=== PATIENT | female | born 1970 | race Caucasian/White ===

== ENCOUNTER 2022-09-29 12:30 | Day surgery (SDC) | payer OTHER, SELFPAY ==
--- NOTE | 2022-09-29 12:12 | MM_ITS ---
Patient: CLIVE CARDOZA Exam Date: 09/29/2022 : 1970 Gender:F Ordering : DR NIMISHA RETANA M.D. Admission #: [id number] Family : Order #: [id number] CLICK HERE TO VIEW EXAM RADIOLOGY REPORT PROCEDURE: MM POST BIOPSY BI COMPARISON: MG MAMM DARRELL DIAG FU, 09/16/2022. MG MAMM SCREEN 3D DARRELL CAD, 09/13/2022. MG MAMM SCREEN 3D DARRELL CAD, 07/20/2021. MG MAMM SCREEN DARRELL W CAD, 04/15/2020. INDICATIONS: Bilateral breast mass, nodule BREAST COMPOSITION: FINDINGS: BIOPSY MARKER: A metallic marker has been placed in the targeted location within the upper-outer quadrant of the right breast, and lower-inner quadrant of left breast. BREAST FINDINGS: Expected post biopsy findings. RECOMMENDATIONS: Dictated by: Kvng Baez M.D. on 09/30/2022 at 14:54 Approved by: Kvng Baez M.D. on 09/30/2022 at 14:57
--- NOTE | 2022-09-29 12:14 | US_ITS ---
[address] [address] Patient Name: CLIVE CARDOZA MRN: [id number] date: 1970 Sex: F Assigned Patient Location: US Current Patient Location: US Accession/Order Number: [id number] Exam Date: 09/29/2022 12:18 Report Date: 09/30/2022 14:33 At the request of: NIMISHA RETANA Procedure: US breast vac bx w/ clip LT EXAM: US breast vac bx w/ clip LT HISTORY: Right breast mass/nodule COMPARISON: Ultrasound breast Limited bilateral 09/16/2022, bilateral mammography 09/16/2022 TECHNIQUE: After obtaining informed consent, ultrasound-guided biopsy was performed in the usual sterile manner. The location of the biopsy was then marked as indicated below. FINDINGS: Specimen #, Location: 3 core samples; left breast slightly hypoechoic mass 7:00 Biopsy Needle: 13 gauge vacuum core biopsy needle. Marker(s): A single metallic marker was placed in the appropriate targeted location. Medication: Buffered 1% Lidocaine with epinephrine administered locally. Complications: None. Pathology: Pending. IMPRESSION: 1. Uneventful ultrasound-guided breast biopsy. 2. Pathology results are pending. An addendum to this report will be provided after pathology results are available. Electronically authenticated by: HUGH HANSEN Date: 09/30/2022 14:33
--- NOTE | 2022-09-29 12:19 | US_ITS ---
[address] [address] Patient Name: CLIVE CARDOZA MRN: [id number] date: 1970 Sex: F Assigned Patient Location: US Current Patient Location: US Accession/Order Number: [id number] Exam Date: 09/29/2022 12:18 Report Date: 09/30/2022 14:35 At the request of: NIMISHA RETANA Procedure: US breast vac bx w/ clip RT EXAM: US breast vac bx w/ clip RT HISTORY: Right breast mass/nodule COMPARISON: Ultrasound breast Limited bilateral 09/16/2022, mammography and bilateral diagnostic 09/16/2022 TECHNIQUE: After obtaining informed consent, ultrasound-guided biopsy was performed in the usual sterile manner. The location of the biopsy was then marked as indicated below. FINDINGS: Specimen #, Location: 3 core samples; right breast 10:00 heterogeneous mass Biopsy Needle: 13 gauge vacuum core biopsy needle. Marker(s): A single metallic marker was placed in the appropriate targeted location. Medication: Buffered 1% Lidocaine with epinephrine administered locally. Complications: None. Pathology: Pending. IMPRESSION: 1. Uneventful ultrasound-guided breast biopsy. 2. Pathology results are pending. An addendum to this report will be provided after pathology results are available. Electronically authenticated by: HUGH HANSEN Date: 09/30/2022 14:35
[2022-09-29 12:30] VITALS: BP 128/82; PULSE 79; O2SAT 95
[2022-09-29 15:39] VITALS: BMI 30.7
--- NOTE | 2022-09-29 15:50 | PC.NURSE ---
1318 Timeout completed with jass, Dr Baez, and Hu present in room.
[2022-09-30] MEDS: LIDOCAINE HCL 1%-EPINEPHRINE 1:100,000 20 ML MDV INJ (11:34)
[2022-09-30] MEDS: LIDOCAINE HCL 20 ML, SODIUM BICARBONATE 2 MEQ INJ (11:35)
== END 2022-09-29 15:00 | disposition home or self-care (01) ==
LOC: US 09-30 12:25
PROVIDERS: Radiology Diagnostic Radiology; PCP Family Medicine; Visit Provider Family Medicine
DX: D05.01 Lobular carcinoma in situ of right breast (principal); D24.2 Benign neoplasm of left breast
CPT/HCPCS: 19083; 77066; 88305; 88342; 88360

== ENCOUNTER 2023-04-25 08:52 | Outpatient (OUT) | payer OTHER, SELFPAY ==
--- NOTE | 2023-04-25 09:53 | CA_ITS ---
Patient Name Site Name CLIVE CARDOZA [facility] Account No Medical Record Number Age Sex Date Time [id number] [employer]:[id number] F 04/25/2023 09:10 At the Request Of PIEDAD REYES ECHOCARDIOGRAM REPORT PROCEDURE: CA ECHO DOPPLER COMPLETE INDICATIONS: HUNT, Chronic fatigue, Dizziness, S/P Chemo/radiation COMPARISON: None. DESCRIPTION: COMPLETE ECHOCARDIOGRAM Real-time transthoracic echocardiography with 2D, M-mode, spectral and color flow Doppler performed. QUALITY: Technical quality was good. LEFT VENTRICLE: Normal chamber size. Normal left ventricular wall thickness. Global left ventricular systolic function is normal. LV EF: Visual estimation of left ventricular ejection fraction is 55% DIASTOLIC: Normal diastolic function. ATRIAL SEPTUM: LEFT ATRIUM: Normal chamber size. RIGHT ATRIUM: Normal chamber size. RIGHT VENTRICLE: Normal chamber size. Normal right ventricular systolic function. TRICUSPID VALVE: Normal mobility and thickness. No stenosis with trivial regurgitation. No evidence of pulmonary hypertension. RVSP 24 mmHg MITRAL VALVE: Normal mobility and thickness. No evidence of mitral valve stenosis. There is no mitral annular calcification. No mitral regurgitation. AORTIC VALVE: Normal trileaflet appearance. No visible sclerosis. Normal leaflet mobility. No evidence of aortic valve stenosis. No aortic regurgitation. AORTIC ROOT: Normal diameter and appearance. PULMONIC VALVE: Normal thickness and mobility. No stenosis. Mild regurgitation. PERICARDIUM: No evidence of pericardial effusion. IVC: Collapses with inspirations. Normal size. PLEURA: CONCLUSION: 1. Normal ventricular function. LVEF is 55%. 2. No significant valvular dysfunction. 3. Normal right-sided pressures. 4. No pericardial effusion. Adult Echocardiography Procedure Report Left Ventricle LVEDD (3.7 - 5.6 cm): 5.18 cm LVESD (2.2 - 4.0 cm): 3.67 cm LVIVS thickness (0.6 - 1.2 cm): 0.77 cm LVPW thickness (0.5 - 1.0 cm): 0.85 cm e': 0.10 m/s E - e': 6.11 LVOT Max Gradient: 2.29 mm[Hg] LVOT Area (cm2): 0.76 m/s Peak Velocity (LVOT): 0.76 m/s Mean Velocity (LVOT): 0.51 m/s LVOT Diameter 2.51 cm Left Ventricular Ejection Fraction: 55% Left Atrium LA Volume Index (2D A2C): 32.44 ml/m2 Left Atrium Systolic Dimension: 3.06 cm Mitral Valve MV E to A Ratio: 1.13 Mitral Valve A-Wave Peak Velocity: 0.53 m/s Mitral Valve E-Wave Peak Velocity: 0.60 m/s Right Ventricle RV Internal Diastolic Dimension: 2.56 cm Aorta AO Root Diam: 3.35 cm Aortic Valve AoV Area (Peak Jeremy): 3.25 cm2, 3.25 cm2 AoV Area (VTI): 3.24 cm2, 3.24 cm2 Peak Velocity(Antegrade Flow): 1.15 m/s Peak Gradient(Antegrade Flow): 5.33 mm[Hg] Mean Velocity(Antegrade Flow): 0.78 m/s Mean Gradient(Antegrade Flow): 2.71 mm[Hg] Velocity Time Integral: 22.02 cm Tricuspid Valve Peak Velocity (Regurgitant Flow): 2.28 m/s, 2.19 m/s Pulmonic Valve Mean Gradient: 2.76 mm[Hg], 2.73 mm[Hg], 2.25 mm[Hg] Mean Velocity: 0.79 m/s, 0.78 m/s, 0.70 m/s Peak Velocity: 1.02 m/s Peak Gradient: 4.49 mm[Hg], 4.25 mm[Hg], 3.75 mm[Hg] Right Atrium Right Atrium Systolic Pressure: 31.38 ml, 31.38 ml Dictated by: Doug Hernandez M.D. on 04/26/2023 at 19:11 Approved by: Doug Hernandez M.D. on 04/26/2023 at 19:14
== END 2023-04-25 08:53 | disposition home or self-care (01) ==
LOC: CARD 08:53
PROVIDERS: PCP Family Medicine; Visit Provider Physician Assistant
DX: R06.09 Other forms of dyspnea (principal); R53.82 Chronic fatigue, unspecified; Z92.3 Personal history of irradiation; D84.9 Immunodeficiency, unspecified; R42 Dizziness and giddiness
CPT/HCPCS: 93306

== ENCOUNTER 2023-06-23 14:14 | Outpatient (OUT) | payer OTHER, SELFPAY ==
--- NOTE | 2023-06-23 14:17 | XR_ITS ---
[facility] [place] [id number] Patient Name: CLIVE CARDOZA MRN: [id number] date: 1970 Sex: F Assigned Patient Location: [facility] Current Patient Location: RAD Accession/Order Number: [id number] Exam Date: 06/23/2023 14:30 Report Date: 06/23/2023 14:44 At the request of: NIMISHA RETANA Procedure: XR DEXA axial skeleton EXAMINATION: XR DEXA axial skeleton HISTORY: Estrogen Deficiency E28.39 COMPARISON: No relevant comparison available. TECHNIQUE: Dual-energy X-ray absorptiometry (DXA) was performed. FINDINGS: SPINE ANALYSIS: Average bone mineral density is 1.477 g/cm2. T-score (standard deviation relative to young adult mean): 2.5 . HIP ANALYSIS: Lowest bone mineral density is within the left femoral neck, 1.013 g/cm2. T-score (standard deviation relative to young adult mean): -0.2 . XR/XR DEXA axial skeleton IMPRESSION: World [employer] Organization Classification: Normal - Low Fracture Risk Electronically authenticated by: HUGH HANSEN Date: 06/23/2023 14:44
--- OUTSIDE RECORDS SUMMARY | 2023-06-23 14:29 | XMS_ITS | CCD ---
Author Name Unknown Address [address] [place] [address] Organization [facility] Care Team Providers Care Customer Support Associate Name Role Phone MAZIN, DR BANSAL Admitting Unavailable MAZIN, DR BANSAL Primary Care Unavailable MAZIN, DR BANSAL Consulting Unavailable MAZIN, DR BANSAL Attending Unavailable POLSON, DR RADHA Gant Consulting Unavailable Unavailable Primary Care Provider Unavailabl e Mazin, Rugen [facility] Primary Care Provider Sasha Menjivar Unavailable GET RYAN Referring Unavailable MAZIN, RUGEN [facility] Primary Care Unavailable GET RYAN Referring Unavailable MAZIN, [facility]UGEN [facility] Primary Care Unavailable MAZIN, RUGEN MABALAY Primary Care Unavailable GET RYAN Referring Unavailable Mazin Nimisha [facility] Primary Care Provider [phone] Angie Turpin RN Unavailable Tere Morales Unavailable Unavailable Tere Anderson Unavailable MAZIN, RUGEN MABALAY Primary Care Unavailable GET RYAN Referring Unavailable GET RYAN Attending Unavailable MAZIN, RUGEN [facility] Primary Care Unavailable GET RYAN Referring Unavailable MAZIN, RUGEN MABALAY Primary Care Unavailable GET RYAN Attending Unavailable MAZIN, RUGEN MABALAY Primary Care Unavailable JACQUELINE CORTEZ Referring Unavailable MESSI MANLEY Admitting Unavailable MESSI MANLEY Attending Unavailable MAZIN, RUGEN MABALAY Primary Care Unavailable TREVIN CALDERÓN Attending Unavailable CALDERÓN, TREVIN JUDY Referring Unavailable MAZIN, RUGEN MABALAY Primary Care Unavailable KAITLYNN, TREVIN JUDY Attending Unavailable KAITLYNN, TREVIN JUDY Referring Unavailable MAZIN, RUGEN MABALAY Primary Care Unavailable KAITLYNN, TREVIN JUDY Referring Unavailable MAZIN, RUGEN MABALAY Primary Care Unavailable KAITLYNN, TREVIN JUDY Referring Unavailable MAZIN, RUGEN MABALAY Primary Care Unavailable KAITLYNN, TREVIN JUDY Referring Unavailable MAZIN, RUGEN MABALAY Primary Care Unavailable KAITLYNN, TREVIN JUDY Referring Unavailable MESSI MANLEY Attending Unavailable MAZIN, RUGEN MABALAY Primary Care Unavailable MESSI MANLEY Referring Unavailable MAZIN, RUGEN MABALAY Primary Care Unavailable MESSI MANLEY Referring Unavailable [facility]ZIN, RUGEN [facility] Primary Care Unavailable ROBERT RENO Attending Unavailable MESSI MANLEY Referring Unavailable MAZIN, RUGEN MABALAY Primary Care Unavailable MESSI MANLEY Attending Unavailable MAZIN, RUGEN MABALAY Primary Care Unavailable MESSI MANLEY Referring Unavailable MAZIN, RUGEN MABALAY Primary Care Unavailable KAITLYNN, TREVIN JUDY Attending Unavailable KAITLYNN, TREVIN JUDY Referring Unavailable MAZIN, RUGEN MABALAY Primary Care Unavailable KAITLYNN, TREVIN JUDY Referring Unavailable MAZIN, RUGEN MABALAY Primary Care Unavailable KAITLYNN, TREVIN JUDY Referring Unavailable MAZIN, RUGEN MABALAY Primary Care Unavailable MESSI MANLEY Referring Unavailable MAZIN, RUGEN MABALAY Primary Care Unavailable KAITLYNN, TREVIN JUDY Attending Unavailable MAZIN, RUGEN MABALAY Primary Care Unavailable MAZIN, RUGEN MABALAY Primary Care Unavailable MAZIN, RUGEN MABALAY Primary Care Unavailable MESSI MANLEY Attending Unavailable MAZIN, RUGEN MABALAY Primary Care Unavailable GET RYAN Referring Unavailable MAZIN, RUGEN MABALAY Primary Care Unavailable GET RYAN Referring Unavailable LAINA MULLER Attending Unavailable MAZIN, RUGEN MABALAY Primary Care Unavailable KAITLYNN, TREVIN JUDY Referring Unavailable MESSI MANLEY Referring Unavailable MAZIN, RUGEN MABALAY Primary Care Unavailable GET RYAN Referring Unavailable MAZIN, RUGEN MABALAY Primary Care Unavailable GET RYAN Referring Unavailable GET RYAN Referring Unavailable MAZIN, RUGEN MABALAY Primary Care Unavailable LAINA MULLER Referring Unavailable MAZIN, RUGEN MABALAY Primary Care Unavailable MAZIN, RUGEN MABALAY Primary Care Unavailable MAZIN, [facility] Primary Care Unavailable MESSI MANLEY Attending Unavailable MAZIN, [facility] Primary Care Unavailable MESSI MANLEY Referring Unavailable KAITLYNN, TREVIN JUDY Attending Unavailable MAZIN, [facility] Primary Care Unavailable GET RYAN Attending Unavailable GET RYAN Referring Unavailable MAZIN, [facility] Primary Care Unavailable MESSI MANLEY Attending Unavailable MAZIN, [facility] Primary Care Unavailable GET RYAN Referring Unavailable MAZIN, [facility] Primary Care Unavailable MAZIN, [facility] Primary Care Unavailable CALDERÓN, TREVIN JUDY Referring Unavailable MAZIN, [facility] Primary Care Unavailable EDWIN WATTS Attending Unavailable CALDERÓN, TREVIN JUDY Referring Unavailable MAZIN, [facility] Primary Care Unavailable CALDERÓN, TREVIN JUDY Attending Unavailable MAZIN, [facility] Primary Care Unavailable CALDERÓN, TREVIN JUDY Referring Unavailable MAZIN, [facility] Primary Care Unavailable DEVYN FIELD Attending Unavailable MAZIN, [facility] Primary Care Unavailable GET RYAN Attending Unavailable MAZIN, [facility] Primary Care Unavailable CALDERÓN, TREVIN JUDY Referring Unavailable MAZIN, [facility] Primary Care Unavailable CALDERÓN, TREVIN JUDY Referring Unavailable MAZIN, [facility] Primary Care Unavailable CALDERÓN, TREVIN JUDY Referring Unavailable MAZIN, [facility] Primary Care Unavailable KAITLYNN TREVIN JUDY Referring Unavailable GET RYAN Attending Unavailable MESSI MANLEY Referring Unavailable MESSI MANLEY Attending Unavailable MESSI MANLEY Referring Unavailable MAZIN, [facility] Primary Care Unavailable EGT RYAN Referring Unavailable MAZIN, [facility] Primary Care Unavailable CALDERÓN, TREVIN JUDY Referring Unavailable MA[facility]IN, [facility] Primary Care Unavailable CALDERÓN, TREVIN JUDY Referring Unavailable MAIZN, [facility] Primary Care Unavailable MESSI MANLEY Referring Unavailable GET RYAN Referring Unavailable MAZIN, [facility] Primary Care Unavailable Mazin Nimisha COCHRAN Primary Care Provider Laurie Lopez Unavailable KATALINA EAST Attending Unavailable LAURIE REYES Attending Unavailable LAURIE REYES Attending Unavailable Medications Current Medications Medication Drug Class(es) Dates Sig (Normalized) Sig (Original) abemaciclib 150 mg oral tablet (17 sources) Start: 03-20-2023 take 1 tablet by mouth twice daily abemaciclib (Verzenio) 150 MG chemo tablet Take 150 mg by mouth twice a day. 0 03/20/2023 Active Start: 03-20-2023 take 1 tablet by marilyn th twice daily abemaciclib (VERZENIO) 150 mg tablet Take 1 tablet (150 mg) by mouth two times a day. 60 tablet 03/20/2023 Active Start: 03-20-2023 take 1 tablet by marilyn th twice daily abemaciclib (VERZENIO) 150 mg tablet Take 1 tablet (150 mg) by mouth two times a day. 60 tablet 03/20/2023 Active Start: 03-20-2023 take 1 tablet by marilyn th twice daily abemaciclib (VERZENIO) 150 mg tablet Take 1 tablet (150 mg) by mouth two times a day. 60 tablet 03/20/2023 Active Start: 03-20-2023 take 1 tablet by marilyn th twice daily abemaciclib (VERZENIO) 150 mg tablet Take 1 tablet (150 mg) by mouth two times a day. 60 tablet 03/20/2023 Active Start: 03-20-2023 End: 02-15-2023 take 1 tablet by mouth twice daily abemaciclib (VERZENIO) 150 mg tablet Take 1 tablet (150 mg) by mouth two times a day. 60 tablet 03/20/2023 02/15/2023 Discontinued Start: 03-20-2023 take 1 tablet by marilyn th twice daily abemaciclib (VERZENIO) 150 mg tablet Take 1 tablet (150 mg) by mouth two times a day. 60 tablet 03/20/2023 Active Start: 03-20-2023 take 1 tablet by marilyn th twice daily abemaciclib (VERZENIO) 150 mg tablet Take 1 tablet (150 mg) by mouth two times a day. 60 tablet 03/20/2023 Active Start: 03-20-2023 take 1 tablet by marilyn th twice daily abemaciclib (VERZENIO) 150 mg tablet Take 1 tablet (150 mg) by mouth two times a day. 60 tablet 11 03/20/2023 Active Start: 03-20-2023 take 1 tablet by marilyn th twice daily abemaciclib (VERZENIO) 150 mg tablet Take 1 tablet (150 mg) by mouth two times a day. 60 tablet 11 03/20/2023 Active Start: 03-20-2023 take 1 tablet by marilyn th twice daily abemaciclib (VERZENIO) 150 mg tablet Take 1 tablet (150 mg) by mouth two times a day. 60 tablet 03/20/2023 Active Comment on above: Take 1 tablet (150 m g) by mouth two times a day. ALPRAZolam 0.5 mg oral tablet (20 sources) Benzodiazepine Start: take 1 tablet by mouth twice daily as needed for anxiety ALPRAZolam (Xanax) 0.5 MG tablet Indications: Anxiety about health Take 1 tablet (0.5 mg) by mouth 2 (two) times a day as needed for anxiety. 30 tablet 0 11/15/2022 Active take 1 tablet by mouth every twe lve hours Comment on above: Take 0.5 mg by mouth twice daily. amoxicillin 500 mg oral capsule (2 sources) Penicillin-class Antibacterial Start: 04-04-20 End: 04-08-20 take 1 capsule by mouth twice daily amoxicillin (AMOXIL) 500 mg capsule Take 1 capsule by mouth two times a day for 4 days. 0 04/04/2023 04/08/2023 Active Comment on above: Take 1 capsule by mo [facility] two times a day for 4 days. anastrozole 1 mg oral tablet (20 sources) Aromatase Inhibitor Start: 10-26-19 anastrozole (Arimidex) 1 MG chemo tablet Comment on above: Take 1 tablet by marilyn th once daily. 12 hr buPROPion hydrochloride 150 mg extended release oral tablet (20 sources) Aminoketone Start: 11-09-19 take 1 tablet by mouth every twelve hours in the morning buPROPion SR (Wellbutrin SR) 150 MG 12 hr tablet Indications: Anxiety about health Take 1 tablet (150 mg) by mouth in the morning and 1 tablet (150 mg) before bedtime. 200 tablet 3 11/08/2022 Active Start: 03-24-2022 take 1 tablet by marilyn th once daily buPROPion SR (ZYBAN SR; WELLBUTRIN SR) 150 mg 12 hr tablet Take 150 mg by mouth once daily. 0 07/22/2021 Active take 1.5 tablets by mouth every twenty-four hours Comment on above: Take 150 mg by mouth once daily. cholecalciferol 0.125 mg oral capsule (1 source) Vitamin D Start: 10-20-19 take 1 capsule by mouth once in the morning cholecalciferol (Vitamin D-3) 125 MCG (5000 UT) capsule Indications: Vitamin D deficiency Take 1 capsule (125 mcg) by mouth in the morning. 90 capsule 3 10/19/2022 Active diphenhydrAMINE hydrochloride 25 mg oral tablet (1 source) Histamine-1 Receptor Antagonist diphenhydrAMINE (BENADryl) 25 MG tablet Take 2 tablets by mouth as needed at bedtime for itching, allergies or sleep. 0 Active enteric contrast (will be provided with radiology test) (1 source) Start: 12-03-19 End: 12-04-19 enteric contrast (will be provided with radiology test) Indications: Malignant 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 in female, estrogen receptor positive (HCC) For CT CHESTABD/PEL W IVCON Routine order Administer, As Directed One Time Only, via Oral, Rectal, both Oral and Rectal, Enteric Tube, Stoma or Indwelling Catheter, Enteric Contrast as designated per enteric contrast guidelines 1 Each 0 12/02/2022 12/03/2022 Active Comment on above: For CT CHESTABD/PEL W IVCON Routine order Administer, As Directed One Time Only, via Oral, Rectal, both Oral and Rectal, Enteric Tube, Stoma or Indwelling Catheter, Enteric Contrast as designated per enteric contrast guidelines fexofenadine hydrochloride 30 mg disintegrating oral tablet (20 sources) Histamine-1 Receptor Antagonist take 1 tablet by mouth in the morning fexofenadine ODT (Monica ODT) 30 MG disintegrating tablet Take 30 mg by mouth in the morning. 0 Active take 1 tablet by mouth once sheeba y fexofenadine HCl (MONICA 60 MG CAP) Take 1 tablet by mouth once daily. 0 Active Comment on above: Take 1 tablet by marilyn once daily. fluticasone propionate 0.05 mg/actuat metered dose nasal spray (2 sources) Corticosteroid take 1 spray(s) nasal route in the morning fluticasone (Flonase) 50 MCG/ACT nasal spray Administer 1 spray into each nostril in the morning. Shake gently. Before first use, prime pump. After use, clean tip and replace cap.. 0 Active iv contrast (will be provide d with radiology test) (12 sources) Start: 12-02-2022 End: 12-03-2022 iv contrast (will be provide d with radiology test) Indications: Malignant 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 in female, estrogen receptor positive (HCC) CT Chest ABD/PEL-Inject, intravenously, once for 1 dose.No IV access, insert saline lock prior to the beginning of sedation, infusion, injection of imaging exam. Discontinue saline lock post exam. If Pt. has a central line or IVAD, may access for administration according to line specific nursing protocol. Once exam is complete flush line and de-access according to line specific nursing protocol in the CT contrast administration guidelines link. 1 Each 0 12/02/2022 12/03/2022 Active Start: 10-19-2022 End: 10-20-2022 iv contrast (will be provide d with radiology test) Indications: Abnormal MRI, breast MRI LT Breast Bx Inject, intravenously, once for 1 dose. No IV access, insert saline lock prior to the beginning of sedation, infusion, injection of imaging exam. Discontinue saline lock post exam. If Pt has a central line or IVAD, may access for administration according to line specific nursing protocol. Once exam is complete flush line and de-access according to line specific nursing protocol in the MR contrast administration guidelines link 1 Each 0 10/19/2022 10/20/2022 Start: 10-19-2022 End: 10-20-2022 iv contrast (will be provide d with radiology test) Indications: Abnormal MRI, breast MRI LT Breast Bx Inject, intravenously, once for 1 dose. No IV access, insert saline lock prior to the beginning of sedation, infusion, injection of imaging exam. Discontinue saline lock post exam. If Pt has a central line or IVAD, may access for administration according to line specific nursing protocol. Once exam is complete flush line and de-access according to line specific nursing protocol in the MR contrast administration guidelines link 1 Each 0 10/19/2022 10/20/2022 Active Start: 10-18-2022 End: 10-19-2022 iv contrast (will be provide d with radiology test) MRI Breast DARRELL Inject, intravenously, once for 1 dose. No IV access, insert saline lock prior to the beginning of sedation, infusion, injection of imaging exam. Discontinue saline lock post exam. If Pt has a central line or IVAD, may access for administration according to line specific nursing protocol. Once exam is complete flush line and de-access according to line specific nursing protocol in the MR contrast administration guidelines link 1 Each 0 10/18/2022 10/19/2022 Start: 10-18-2022 End: 10-19-2022 iv contrast (will be provide d with radiology test) MRI Breast DARRELL Inject, intravenously, once for 1 dose. No IV access, insert saline lock prior to the beginning of sedation, infusion, injection of imaging exam. Discontinue saline lock post exam. If Pt has a central line or IVAD, may access for administration according to line specific nursing protocol. Once exam is complete flush line and de-access according to line specific nursing protocol in the MR contrast administration guidelines link 1 Each 0 10/18/2022 10/19/2022 Active Comment on above: MRI Breast DARRELL Injec t, intravenously, once for 1 dose. No IV access, insert saline lock prior to the beginning of sedation, infusion, injection of imaging exam. Discontinue saline lock post exam. If Pt has a central line or IVAD, may access for administration according to line specific nursing protocol. Once exam is complete flush line and de-access according to line specific nursing protocol in the MR contrast administration guidelines link MRI LT Breast Bx Inj ect, intravenously, once for 1 dose. No IV access, insert saline lock prior to the beginning of sedation, infusion, injection of imaging exam. Discontinue saline lock post exam. If Pt has a central line or IVAD, may access for administration according to line specific nursing protocol. Once exam is complete flush line and de-access according to line specific nursing protocol in the MR contrast administration guidelines link CT Chest ABD/PEL-Inj ect, intravenously, once for 1 dose.No IV access, insert saline lock prior to the beginning of sedation, infusion, injection of imaging exam. Discontinue saline lock post exam. If Pt. has a central line or IVAD, may access for administration according to line specific nursing protocol. Once exam is complete flush line and de-access according to line specific nursing protocol in the CT contrast administration guidelines link. Multiple Vitamins-Minerals (EYE VITAMINS PO) (1 source) take 1 tablet by mouth once daily Multiple Vitamins-Minerals (EYE VITAMINS PO) Take 1 tablet by mouth 1 (one) time each day. 0 Active omeprazole 20 mg delayed release oral tablet (6 sources) Proton Pump Inhibitor Start: 04-04-20 take 1 tablet by mouth before mealtime PriLOSEC OTC 20 MG EC tablet Indications: Chronic gastritis without bleeding, unspecified gastritis type TAKE 1 TABLET BY MOUTH IN THE MORNING BEFORE MEAL(S) 100 tablet 3 04/20/2023 Active Comment on above: Take 1 tablet by marilyn th two times a day. ondansetron 8 mg oral tablet (16 sources) Serotonin-3 Receptor Antagonist Start: 02-14-20 ondansetron (Zofran) 8 MG tablet Take 8 mg by mouth. 0 02/13/2023 Active Comment on above: Take 1 tablet by marilyn th once daily as needed for nausea/vomiting. silver sulfADIAZINE 10 mg/ml topical cream (2 sources) Sulfonamide Antibacterial Start: 02-21-20 End: 03-06-20 silver sulfADIAZINE (SILVADENE) 1 % cream Apply to affected area two times a day for 14 days. 50 g 1 02/20/2023 03/06/2023 Active Comment on above: Apply to affected ar ea two times a day for 14 days. Vitamin D (1 source) Completed/Discontinued Medications Medication Drug Class(es) Dates Sig (Normalized) Sig (Original) Amphetamine / Dextroamphetamine (1 source) Central Nervous System Stimulant Calcium (1 source) Phosphate Binder, Calcium Emergen-C Immune (1 source) Estradiol (1 source) Estrogen Magnesium (1 source) methylcellulose 500 mg oral tablet (5 sources) Start: 04-04-2023 take 1 tablet by mouth once daily Methylcellulose, Laxative, (CITRUCEL) 500 mg tab Take 1 tablet by mouth once daily. 0 04/04/2023 Active Comment on above: Take 1 tablet by marilyn th once daily. oxyCODONE hydrochloride 5 mg oral tablet (12 sources) Opioid Agonist Start: 2022 End: 12-19-2022 take 1 tablet by mouth every eight hours as needed oxyCODONE IR (ROXICODONE) 5 mg immediate release tablet Indications: Malignant neoplasm of overlapping sites of right breast in female, estrogen receptor positive (HCC) Take 1-2 tablets by mouth every 8 hours as needed for pain. 18 tablet 0 2022 12/19/2022 Discontinued (Course of therapy completed) Comment on above: Take 1-2 tablets by mouth every 8 hours as needed for pain. predniSONE (1 source) Zinc (1 source) Problems Active Problems Problem Classification Problem Date Documented Da te Episodic/Chronic Abdominal pain (1 source) Abdominal pain; Translations: [Abdominal pain] Episodic Acute and chronic tonsillitis (1 source) Enlarged tonsil; Translations: [Hypertrophy of tonsils] Onset: 10-08-2022 10-08-2022 Chronic Anxiety disorders (20 sources) Anxiety about body function or health; Translations: [Other specified anxiety disorders] Onset: 06-09-2015 11-23-2022 Chronic Attention-deficit, conduct, and disruptive behavior disorders (1 source) Attention deficit hyperactivity disorder, predominantly inattentive type; Translations: [Attention-deficit hyperactivity disorder, predominantly inattentive type] Onset: 01-05-2017 03-29-2023 Chronic Cancer of breast (20 sources) Malignant neoplasm of female breast; Translations: [Malignant neoplasm of unspecified site of right female breast] Onset: 10-10-2022 Chronic Diabetes or abnormal glucose tolerance complicating ; childbirth; or the puerperium (1 source) Diabetes mellitus during , childbirth and the puerperium; Translations: [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] Onset: 06-09-2015 03-29-2023 Chronic Gastritis and duodenitis (1 source) Atrophic gastritis; Translations: [Chronic atrophic gastritis without bleeding] Onset: 12-07-2017 03-29-2023 Chronic Immunity disorders (1 source) Immunosuppression; Translations: [Immunodeficiency, unspecified] Onset: 04-20-2023 04-20-2023 Chronic Malaise and fatigue (1 source) Fatigue; Translations: [Chronic fatigue, unspecified] Onset: 10-08-2022 10-08-2022 Chronic Mood disorders (1 source) Depressive disorder; Translations: [Depressive disorder] Onset: 10-08-2022 10-08-2022 Chronic Nutritional deficiencies (1 source) Vitamin D deficiency; Translations: [Vitamin D deficiency, unspecified] Onset: 10-08-2022 10-08-2022 Chronic Osteoarthritis (1 source) Osteoarthritis of right hip joint; Translations: [Unilateral primary osteoarthritis, right hip] Onset: 10-08-2022 10-08-2022 Chronic Other aftercare (3 sources) Prophylactic aromatase inhibitors given; Translations: [senior care (current) use of aromatase inhibitors] 04-06-2023 Episodic Other aftercare (2 sources) H/O: malignant neoplasm; Translations: [Encounter for follow-up examination after completed treatment for malignant neoplasm] 04-06-2023 Episodic Other aftercare (1 source) senior care (current) use of aromatase inhibitors; Translations: [Aromatase inhibitor use] Onset: 04-17-2023 Episodic Other aftercare (1 source) Encounter for follow-up examination after completed treatment for malignant neoplasm; Translations: [Encounter for routine cancer follow-up] Onset: 04-17-2023 Episodic Other connective tissue disease (1 source) Muscle pain; Translations: [Myalgia, unspecified site] Onset: 06-02-2023 06-02-2023 Episodic Other gastrointestinal disorders (1 source) Constipation; Translations: [Constipation] Episodic Other nervous system disorders (1 source) Paresthesia; Translations: [Paresthesia of skin] Episodic Other nervous system disorders (1 source) Paresthesia of skin Episodic Other nutritional; endocrine; and metabolic disorders (1 source) Body mass index 30+ - obesity; Translations: [Obesity, unspecified] Onset: 10-08-2022 10-08-2022 Chronic Other upper respiratory disease (1 source) Allergic rhinitis; Translations: [Other allergic rhinitis] Onset: 10-08-2022 10-08-2022 Chronic Poisoning by other medications and drugs (1 source) Allergic reaction to drug; Translations: [Allergic reaction to drug] Episodic Residual codes; unclassified (5 sources) Estrogen receptor positive status [ER+]; Translations: [Malignant 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 in female, estrogen receptor positive (HCC)] Onset: 10-19-2022 Episodic Residual codes; unclassified (1 source) Acquired absence of bilateral breasts and nipples; Translations: [H/O bilateral mastectomy] Onset: 04-17-2023 Episodic Unclassified (1 source) Radiotherapy On-treatment Visit Onset: 02-08-2023 Past or Other Problems Problem Classification Problem Date Documented Date Episodic/Chronic Administrative/social admission (1 source) Other specified counseling; Translations: [Encounter to discuss breast reconstruction] Onset: 10-31-2022 Episodic Anal and rectal conditions (20 sources) Rectal pain; Translations: [Rectal pain] Onset: 11-23-2022 11-23-2022 Episodic Gastritis and duodenitis (1 source) Gastritis; Translations: [Gastritis, unspecified, without bleeding] Onset: 10-08-2022 10-08-2022 Episodic Miscellaneous mental health disorders (3 sources) Anxiety about body function or health; Translations: [Other symptoms and signs involving emotional state] Onset: 05-20-2020 11-23-2022 Episodic Nonmalignant breast conditions (2 sources) Other specified disorders of breast; Translations: [Other specified disorders of breast] Onset: 11-23-2022 Episodic Other infections; including parasitic (20 sources) Personal history of other infectious and parasitic diseases; Translations: [Personal history of COVID-19] Onset: 10-08-2022 11-23-2022 Episodic Other lower respiratory disease (1 source) Dyspnea on exertion; Translations: [Other forms of dyspnea] Onset: 10-08-2022 10-08-2022 Episodic Other screening for suspected conditions (not mental disorders or infectious disease) (3 sources) Magnetic resonance imaging of breast abnormal; Translations: [Other abnormal and inconclusive findings on diagnostic imaging of breast] Onset: 10-21-2022 Episodic Residual codes; unclassified (19 sources) History of drug therapy; Translations: [Personal history of antineoplastic chemotherapy] Onset: 02-13-2023 02-13-2023 Episodic Screening and history of mental health and substance abuse codes (20 sources) H/O: depression; Translations: [Personal history of other mental and behavioral disorders] Onset: 11-08-2018 11-23-2022 Episodic Spondylosis; intervertebral disc disorders; other back problems (20 sources) Sciatica; Translations: [Sciatica, right side] Onset: 10-08-2022 11-23-2022 Episodic Results Test Name Value Interpretation Reference Range Facility CBC W Auto Differential pane l (Bld)on 06-09-2023 Erythrocyte distribution width (RBC) [Ratio] 14.6 % Normal 11.5-15.0 [facility] Comment on above: Order Comment: Speci men Type: BLOOD SPECIMENOrdering Facility: [facility] Address: [address] [place] [address] Performed By: #### 5 7021-8 ####[facility] LABIA [id number] [place] [address] [place] Hematocrit (Bld) [Volume fraction] 41.2 % Normal 36.0-46.0 [facility] Comment on above: Order Comment: Speci men Type: BLOOD SPECIMENOrdering Facility: [facility] Address: [address] [place] [address] Performed By: #### 5 7021-8 ####[facility] [id number] [place] [address] [place] Hemoglobin (Bld) [Mass/Vol] 13.4 g/dL Normal 11.5-15.5 [facility] Comment on above: Order Comment: Speci men Type: BLOOD SPECIMENOrdering Facility: [facility] Address: [address] [place] [address] Performed By: #### 5 7021-8 ####[facility] [id number] [place] [address] [place] Immature granulocytes (Bld) [#/Vol] 10*3/uL Normal <0.10 [facility] Comment on above: Order Comment: Speci men Type: BLOOD SPECIMENOrdering Facility: [facility] Address: [address] [place] [address] Performed By: #### 5 7021-8 ####[facility] [id number] [place] [address] [place] MCH (RBC) [Entitic mass] 30.0 pg Normal 26.0-34.0 [facility] Comment on above: Order Comment: Speci men Type: BLOOD SPECIMENOrdering Facility: [facility] Address: [address] [place] [address] Performed By: #### 5 7021-8 ####[facility] LABCLIA [id number] [place] [address] [place] MCHC (RBC) [Mass/Vol] 32.5 g/dL Normal 30.5-36.0 [facility] Comment on above: Order Comment: Speci men Type: BLOOD SPECIMENOrdering Facility: [facility] Address: [address] [place] [address] Performed By: #### 5 7021-8 ####[facility] LABCLIA [id number] [place] [address] [place] MCV (RBC) [Entitic vol] 92.2 fL Normal 80.0-100.0 [facility] Comment on above: Order Comment: Speci men Type: BLOOD SPECIMENOrdering Facility: [facility] Address: [address] [place] [address] Performed By: #### 5 7021-8 ####[facility] [id number] [place] [address] [place] Neutrophils (Bld) [#/Vol] 2.12 10*3/uL Normal 1.45-7.50 [facility] Comment on above: Order Comment: Speci men Type: BLOOD SPECIMENOrdering Facility: [facility] Address: [address] [place] [address] Performed By: #### 5 7021-8 ####[facility] [id number] [place] [address] [place] Nucleated RBC (Bld) [#/Vol] 10*3/uL Normal <0.01 [facility] Comment on above: Order Comment: Speci men Type: BLOOD SPECIMENOrdering Facility: [facility] Address: [address] [place] [address] Performed By: #### 5 7021-8 ####[facility] [id number] [place] [address] [place] Platelet mean volume (Bld) [Entitic vol] 8.8 fL Low 9.0-12.7 [facility] Comment on above: Order Comment: Speci men Type: BLOOD SPECIMENOrdering Facility: [facility] Address: [address] [place] [address] Performed By: #### 5 7021-8 ####[facility] [id number] [place] [address] [place] Platelets (Bld) [#/Vol] 273 10*3/uL Normal 150-400 [facility] Comment on above: Order Comment: Speci men Type: BLOOD SPECIMENOrdering Facility: [facility] Address: [address] [place] [address] Performed By: #### 5 7021-8 ####[facility] [id number] [place] [address] [place] RBC (Bld) [#/Vol] 4.47 10*6/uL Normal 3.90-5.20 [facility] Comment on above: Order Comment: Speci men Type: BLOOD SPECIMENOrdering Facility: [facility] Address: [address] [place] [address] Performed By: #### 5 7021-8 ####[facility] [id number] [place] [address] [place] WBC (Bld) [#/Vol] 2.92 10*3/uL Low 3.70-11.00 [facility] Comment on above: Order Comment: Speci men Type: BLOOD SPECIMENOrdering Facility: [facility] Address: [address] [place] [address] Performed By: #### 5 7021-8 ####[facility] LABCLIA [id number] [place] [address] [place] Immature granulocytes (Bld) [#/Vol] <0.10 k/uL [facility] Neutrophils (Bld) [#/Vol] 2.12 10*3/uL 1.45 - 7.50 k/uL [facility] Nucleated RBC (Bld) [#/Vol] <0.01 k/uL [facility] Platelet mean volume (Bld) [Entitic vol] 8.8 fL Low 9.0 - 12.7 fL [facility] Platelets (Bld) [#/Vol] 273 10*3/uL 150 - 400 k/uL [facility] WBC (Bld) [#/Vol] 2.92 10*3/uL Low 3.70 - 11. 00 k/uL [facility] CBC W AUTO DIFF BLDon [facility] NEUTROPHILS # BLD AUTO 2.12 [facility] NRBC # BLD AUTO <0.01 [facility] PLATELET # BLD AUTO 273 [facility] PMV BLD AUTO 8.8 fL Low 9.0 - 12.7 fL [facility] WBC # BLD AUTO 2.92 Low [facility] IMM GRANULOCYTES # BLD AUTO <0.03 [facility] Interpretation and review of laboratory results Abnormal [facility] Specimen Type: BLOOD SPECIMEN [facility] Address: [address] [place] [address] Original Ordering Provider: [facility] Comprehensive metabolic 2000 panelon 06-09-2023 Albumin [Mass/Vol] 4.4 g/dL 3.9 - 4.9 g/dL [facility] ALP [Catalytic activity/Vol] 67 U/L 34 - 123 U/L [facility] ALT [Catalytic activity/Vol] 14 U/L 7 - 38 U/L [facility] Anion gap [Moles/Vol] 11 mmol/L 9 - 18 mmol/L [facility] AST [Catalytic activity/Vol] 18 U/L 13 - 35 U/L [facility] Bilirubin [Mass/Vol] 0.3 mg/dL 0.2 - 1.3 mg/dL [facility] Calcium [Mass/Vol] 9.9 mg/dL 8.5 - 10. 2 mg/dL [facility] Chloride [Moles/Vol] 105 mmol/L 97 - 105 mmol/L [facility] CO2 [Moles/Vol] 27 mmol/L 22 - 30 mmol/L [facility] Creatinine [Mass/Vol] 0.82 mg/dL 0.58 - 0.96 mg/dL [facility] Estimated Glomerular Filtration Rate 85 mL/min/1.73m >=60 mL/min/1.73m [facility] Glucose [Mass/Vol] 91 mg/dL 74 - 99 mg/dL [facility] Potassium [Moles/Vol] 4.0 mmol/L 3.7 - 5.1 mmol/L [facility] Protein [Mass/Vol] 7.3 g/dL 6.3 - 8.0 g/dL [facility] Sodium [Moles/Vol] 143 mmol/L 136 - 144 mmol/L [facility] Urea nitrogen [Mass/Vol] 12 mg/dL 7 - 21 mg/dL [facility] Albumin [Mass/Vol] 4.4 g/dL Normal 3.9-4.9 [facility] Comment on above: Order Comment: Speci men Type: BLOOD SPECIMENOrdering Facility: [facility] Address: [address] [place] [address] Performed By: #### 2 4323-8 ####[facility] [id number] [place] [address] [place] ALP [Catalytic activity/Vol] 67 U/L Normal 34-123 [facility] Comment on above: Order Comment: Speci men Type: BLOOD SPECIMENOrdering Facility: [facility] Address: [address] [place] [address] Performed By: #### 2 4323-8 ####[facility] LABCLIA [id number] [place] [address] [place] ALT [Catalytic activity/Vol] 14 U/L Normal 7-38 [facility] Comment on above: Order Comment: Speci men Type: BLOOD SPECIMENOrdering Facility: [facility] Address: [address] [place] [address] Performed By: #### 2 4323-8 ####[facility] [id number] [place] [address] [place] Anion gap [Moles/Vol] 11 mmol/L Normal 9-18 [facility] Comment on above: Order Comment: Speci men Type: BLOOD SPECIMENOrdering Facility: [facility] Address: [address] [place] [address] Performed By: #### 2 4323-8 ####[facility] LABCLIA [id number] [place] [address] [place] AST [Catalytic activity/Vol] 18 U/L Normal 13-35 [facility] Comment on above: Order Comment: Speci men Type: BLOOD SPECIMENOrdering Facility: [facility] Address: [address] [place] [address] Performed By: #### 2 4323-8 ####[facility] [id number] [place] [address] [place] Bilirubin [Mass/Vol] 0.3 mg/dL Normal 0.2-1.3 [facility] Comment on above: Order Comment: Speci men Type: BLOOD SPECIMENOrdering Facility: [facility] Address: [address] [place] [address] Performed By: #### 2 4323-8 ####[facility] [id number] [place] [address] [place] Calcium [Mass/Vol] 9.9 mg/dL Normal 8.5-10.2 [facility] Comment on above: Order Comment: Speci men Type: BLOOD SPECIMENOrdering Facility: [facility] Address: [address] [place] [address] Performed By: #### 2 4323-8 ####[facility]CL[facility] [id number] [place] [address] [place] Chloride [Moles/Vol] 105 mmol/L Normal 97-105 [facility] Comment on above: Order Comment: Speci men Type: BLOOD SPECIMENOrdering Facility: [facility] Address: [address] [place] [address] Performed By: #### 2 4323-8 ####[facility]CL[facility] [id number] [place] [address] [place] CO2 [Moles/Vol] 27 mmol/L Normal 22-30 [facility] Comment on above: Order Comment: Speci men Type: BLOOD SPECIMENOrdering Facility: [facility] Address: [address] [place] [address] Performed By: #### 2 4323-8 ####[facility] [id number] [place] [address] [place] Creatinine [Mass/Vol] 0.82 mg/dL Normal 0.58-0.96 [facility] Comment on above: Order Comment: Speci men Type: BLOOD SPECIMENOrdering Facility: [facility] Address: [address] [place] [address] Performed By: #### 2 4323-8 ####[facility] [id number] [place] [address] [place] Creatinine and Glomerular filtration rate.predicted panel (S/P/Bld) 85 mL/min/1.73m??? Normal >=60 [facility] Comment on above: Order Comment: Speci men Type: BLOOD SPECIMENOrdering Facility: [facility] Address: [address] [place] [address] Result Comment: Ute mated Glomerular Filtration Rate (eGFR) is calculated using the 2020 CKD-EPI creatinine equation. This equation utilizes serum creatinine, sex, and age as parameters. The creatinine assay has traceable calibration to isotope dilution-mass spectrometry. Refer to KDIGO guidelines for clinical interpretation. In patients with unstable renal function, e.g. those with acute kidney injury, the eGFR may not accurately reflect actual GFR. Performed By: #### 2 4323-8 ####[facility] [id number] [place] [address] [place] Glucose [Mass/Vol] 91 mg/dL Normal 74-99 [facility] Comment on above: Order Comment: Speci men Type: BLOOD SPECIMENOrdering Facility: [facility] Address: [address] [place] [address] Result Comment: The [place] Diabetes Association (ADA) provides guidance for cutoff values for fasting glucose and random glucose. The ADA defines fasting as no caloric intake for at least 8 hours. Fasting plasma glucose results between 100 to 125 mg/dL indicate increased risk for diabetes (prediabetes).Fasting plasma glucose results greater than or equal to 126 mg/dL meet the criteria for diagnosis of diabetes. In the absence of unequivocal hyperglycemia, results should be confirmed by repeat testing. In a patient with classic symptoms of hyperglycemia or hyperglycemic crisis, random plasma glucose results greater than or equal to 200 mg/dL meet the criteria for diagnosis of diabetes.Reference: Standards of Medical Care in Diabetes 2016, [place] [employer]. Diabetes Care. 2016.39(Suppl 1). Performed By: #### 2 4323-8 ####[facility] LABCLIA [id number] [place] [address] [place] Potassium [Moles/Vol] 4.0 mmol/L Normal 3.7-5.1 [facility] Comment on above: Order Comment: Speci men Type: BLOOD SPECIMENOrdering Facility: [facility] Address: [address] [place] [address] Performed By: #### 2 4323-8 ####[facility]CL[facility] [id number] [place] [address] [place] Protein [Mass/Vol] 7.3 g/dL Normal 6.3-8.0 [facility] Comment on above: Order Comment: Speci men Type: BLOOD SPECIMENOrdering Facility: [facility] Address: [address] [place] [id number] Performed By: #### 2 4323-8 ####[facility] LABCLIA [id number] [place] [address] [place] Sodium [Moles/Vol] 143 mmol/L Normal 136-144 [facility] Comment on above: Order Comment: Speci men Type: BLOOD SPECIMENOrdering Facility: [facility] Address: [address] [place] [address] Performed By: #### 2 4323-8 ####[facility] LABCLIA [id number] [place] [id number] [place] Urea nitrogen [Mass/Vol] 12 mg/dL Normal 7-21 [facility] Comment on above: Order Comment: Speci men Type: BLOOD SPECIMENOrdering Facility: [facility] Address: [address] [place] [address] Performed By: #### 2 4323-8 ####[facility]CL[facility] [id number] [place] [id number] [place] Laboratory - Hematology and Cell countson 06-09-2023 Erythrocyte distribution width (RBC) [Ratio] 14.6 % 11.5 - 15.0 % [facility] Hematocrit (Bld) [Volume fraction] 41.2 % 36.0 - 46.0 % [facility] Hemoglobin (Bld) [Mass/Vol] 13.4 g/dL 11.5 - 15.5 g/dL [facility] MCH (RBC) [Entitic mass] 30.0 pg 26.0 - 34.0 pg [facility] MCHC (RBC) [Mass/Vol] 32.5 g/dL 30.5 - 36.0 g/dL [facility] MCV (RBC) [Entitic vol] 92.2 fL 80.0 - 100.0 fL [facility] RBC (Bld) [#/Vol] 4.47 10*6/uL 3.90 - 5.2 0 m/uL [facility] CBC W Auto Differential pane l (Bld)on 05-26-2023 Erythrocyte distribution width (RBC) [Ratio] 14.6 % Normal 11.5-15.0 [facility] Comment on above: Order Comment: Speci men Type: BLOOD SPECIMENOrdering Facility: [facility] Address: [address] [place] [address] Performed By: #### 5 7021-8 ####[facility] LABCLIA [id number] [place] [address] Hematocrit (Bld) [Volume fraction] 39.1 % Normal 36.0-46.0 [facility] Comment on above: Order Comment: Speci men Type: BLOOD SPECIMENOrdering Facility: [facility] Address: [address] [place] [address] Performed By: #### 5 7021-8 ####[facility] LABCLIA [id number] [place] [address] Hemoglobin (Bld) [Mass/Vol] 13.0 g/dL Normal 11.5-15.5 [facility] Comment on above: Order Comment: Speci men Type: BLOOD SPECIMENOrdering Facility: [facility] Address: [address] [place] [address] Performed By: #### 5 7021-8 ####[facility] LABCLIA [id number] [place] [address] Immature granulocytes (Bld) [#/Vol] 10*3/uL Normal <0.10 [facility] Comment on above: Order Comment: Speci men Type: BLOOD SPECIMENOrdering Facility: [facility] Address: [address] [place] [address] Performed By: #### 5 7021-8 ####[facility] LABCLIA [id number] [place] [address] MCH (RBC) [Entitic mass] 29.7 pg Normal 26.0-34.0 [facility] Comment on above: Order Comment: Speci men Type: BLOOD SPECIMENOrdering Facility: [facility] Address: [address] [place] [address] Performed By: #### 5 7021-8 ####[facility] LABCLIA [id number] [place] [address] MCHC (RBC) [Mass/Vol] 33.2 g/dL Normal 30.5-36.0 [facility] Comment on above: Order Comment: Speci men Type: BLOOD SPECIMENOrdering Facility: [facility] Address: [address] [place] [address] Performed By: #### 5 7021-8 ####[facility] LABIA [id number] [place] [address] MCV (RBC) [Entitic vol] 89.3 fL Normal 80.0-100.0 [facility] Comment on above: Order Comment: Speci men Type: BLOOD SPECIMENOrdering Facility: [facility] Address: [address] [place] [address] Performed By: #### 5 7021-8 ####[facility] LABIA [id number] [place] [address] Neutrophils (Bld) [#/Vol] 2.27 10*3/uL Normal 1.45-7.50 [facility] Comment on above: Order Comment: Speci men Type: BLOOD SPECIMENOrdering Facility: [facility] Address: [address] [place] [address] Performed By: #### 5 7021-8 ####[facility] LABIA [id number] [place] [address] Nucleated RBC (Bld) [#/Vol] 10*3/uL Normal <0.01 [facility] Comment on above: Order Comment: Speci men Type: BLOOD SPECIMENOrdering Facility: [facility] Address: [address] [place] [address] Performed By: #### 5 7021-8 ####[facility] LABIA [id number] [place] [address] Platelet mean volume (Bld) [Entitic vol] 8.3 fL Low 9.0-12.7 [facility] Comment on above: Order Comment: Speci men Type: BLOOD SPECIMENOrdering Facility: [facility] Address: [address] [place] [address] Performed By: #### 5 7021-8 ####[facility] LABIA [id number] [place] [address] Platelets (Bld) [#/Vol] 200 10*3/uL Normal 150-400 [facility] Comment on above: Order Comment: Speci men Type: BLOOD SPECIMENOrdering Facility: [facility] Address: [address] [place] [address] Performed By: #### 5 7021-8 ####[facility] LABCLIA [id number] [place] [address] RBC (Bld) [#/Vol] 4.38 10*6/uL Normal 3.90-5.20 [facility] Comment on above: Order Comment: Speci men Type: BLOOD SPECIMENOrdering Facility: [facility] Address: [address] [place] [address] Performed By: #### 5 7021-8 ####[facility] LABIA [id number] [place] [address] WBC (Bld) [#/Vol] 3.46 10*3/uL Low 3.70-11.00 [facility] Comment on above: Order Comment: Speci men Type: BLOOD SPECIMENOrdering Facility: [facility] Address: [address] [place] [address] Performed By: #### 5 7021-8 ####[facility] LABIA [id number] [place] [address] Comprehensive metabolic 2000 panelon 05-26-2023 Albumin [Mass/Vol] 4.6 g/dL Normal 3.9-4.9 [facility] Comment on above: Order Comment: Speci men Type: BLOOD SPECIMENOrdering Facility: [facility] Address: [address] [place] [address] Performed By: #### 2 4323-8 ####[facility] LABIA [id number] [place] [address] ALP [Catalytic activity/Vol] 70 U/L Normal 34-123 [facility] Comment on above: Order Comment: Speci men Type: BLOOD SPECIMENOrdering Facility: [facility] Address: [address] [place] [address] Performed By: #### 2 4323-8 ####[facility] LABCLIA [id number] [place] [address] ALT [Catalytic activity/Vol] 16 U/L Normal 7-38 [facility] Comment on above: Order Comment: Speci men Type: BLOOD SPECIMENOrdering Facility: [facility] Address: [address] [place] [address] Performed By: #### 2 4323-8 ####[facility] LABCLIA [id number] [place] [address] Anion gap [Moles/Vol] 8 mmol/L Low 9-18 [facility] Comment on above: Order Comment: Speci men Type: BLOOD SPECIMENOrdering Facility: [facility] Address: [address] [place] [address] Performed By: #### 2 4323-8 ####[facility] LABCLIA [id number] [place] [address] AST [Catalytic activity/Vol] 17 U/L Normal 13-35 [facility] Comment on above: Order Comment: Speci men Type: BLOOD SPECIMENOrdering Facility: [facility] Address: [address] [place] [address] Performed By: #### 2 4323-8 ####[facility] LABCLIA [id number] [place] [address] Bilirubin [Mass/Vol] 0.3 mg/dL Normal 0.2-1.3 [facility] Comment on above: Order Comment: Speci men Type: BLOOD SPECIMENOrdering Facility: [facility] Address: [address] [place], [place] [address] Performed By: #### 2 4323-8 ####[facility] LABCLIA [id number] [place] [address] Calcium [Mass/Vol] 10.6 mg/dL High 8.5-10.2 [facility] Comment on above: Order Comment: Speci men Type: BLOOD SPECIMENOrdering Facility: [facility] Address: [address] [place] [address] Performed By: #### 2 4323-8 ####[facility] LABCLIA [id number] [place] [address] Chloride [Moles/Vol] 106 mmol/L High 97-105 [facility] Comment on above: Order Comment: Speci men Type: BLOOD SPECIMENOrdering Facility: [facility] Address: [address] [place] [address] Performed By: #### 2 4323-8 ####[facility] LABCLIA [id number] [place] [address] CO2 [Moles/Vol] 28 mmol/L Normal 22-30 [facility] Comment on above: Order Comment: Speci men Type: BLOOD SPECIMENOrdering Facility: [facility] Address: [address] [place] [address] Performed By: #### 2 4323-8 ####[facility] LABCLIA [id number] [place] [address] Creatinine [Mass/Vol] 0.91 mg/dL Normal 0.58-0.96 [facility] Comment on above: Order Comment: Speci men Type: BLOOD SPECIMENOrdering Facility: [facility] Address: [address] [place] [address] Performed By: #### 2 4323-8 ####[facility] LABCLIA [id number] [place] [address] Creatinine and Glomerular filtration rate.predicted panel (S/P/Bld) 75 mL/min/1.73m??? Normal >=60 [facility] Comment on above: Order Comment: Speci men Type: BLOOD SPECIMENOrdering Facility: [facility] Address: [address] [place] [address] Result Comment: Ute mated Glomerular Filtration Rate (eGFR) is calculated using the 2020 CKD-EPI creatinine equation. This equation utilizes serum creatinine, sex, and age as parameters. The creatinine assay has traceable calibration to isotope dilution-mass spectrometry. Refer to KDIGO guidelines for clinical interpretation. In patients with unstable renal function, e.g. those with acute kidney injury, the eGFR may not accurately reflect actual GFR. Performed By: #### 2 4323-8 ####[facility] LABCLIA [id number] [place] [address] Glucose [Mass/Vol] 90 mg/dL Normal 74-99 [facility] Comment on above: Order Comment: Speci men Type: BLOOD SPECIMENOrdering Facility: [facility] Address: [address] [place] [address] Result Comment: The [place] Diabetes Association (ADA) provides guidance for cutoff values for fasting glucose and random glucose. The ADA defines fasting as no caloric intake for at least 8 hours. Fasting plasma glucose results between 100 to 125 mg/dL indicate increased risk for diabetes (prediabetes).Fasting plasma glucose results greater than or equal to 126 mg/dL meet the criteria for diagnosis of diabetes. In the absence of unequivocal hyperglycemia, results should be confirmed by repeat testing. In a patient with classic symptoms of hyperglycemia or hyperglycemic crisis, random plasma glucose results greater than or equal to 200 mg/dL meet the criteria for diagnosis of diabetes.Reference: Standards of Medical Care in Diabetes 2016, [place] [employer]. Diabetes Care. 2016.39(Suppl 1). Performed By: #### 2 4323-8 ####[facility] LABCLIA [id number] [place] [address] Potassium [Moles/Vol] 4.1 mmol/L Normal 3.7-5.1 [facility] Comment on above: Order Comment: Speci men Type: BLOOD SPECIMENOrdering Facility: [facility] Address: [address] [place] [address] Performed By: #### 2 4323-8 ####[facility] LABCLIA [id number] [place] [address] Protein [Mass/Vol] 7.5 g/dL Normal 6.3-8.0 [facility] Comment on above: Order Comment: Speci men Type: BLOOD SPECIMENOrdering Facility: [facility] Address: [address] [place] [address] Performed By: #### 2 4323-8 ####[facility] LABCLIA [id number] [place] [address] Sodium [Moles/Vol] 142 mmol/L Normal 136-144 [facility] Comment on above: Order Comment: Speci men Type: BLOOD SPECIMENOrdering Facility: [facility] Address: [address] [place] [address] Performed By: #### 2 4323-8 ####[facility] LABCLIA [id number] [place] [address] Urea nitrogen [Mass/Vol] 15 mg/dL Normal 7-21 [facility] Comment on above: Order Comment: Speci men Type: BLOOD SPECIMENOrdering Facility: [facility] Address: [address] [place] [address] Performed By: #### 2 4323-8 ####[facility] LABCLIA [id number] [place] [address] CBC W Auto Differential pane l (Bld)on 05-11-2023 Erythrocyte distribution width (RBC) [Ratio] 14.2 % Normal 11.5-15.0 [facility] Comment on above: Order Comment: Speci men Type: BLOOD SPECIMENOrdering Facility: [facility] Address: [address] [place] [address] Performed By: #### 5 7021-8 ####[facility] LABCLIA [id number] [place] [address] Hematocrit (Bld) [Volume fraction] 40.1 % Normal 36.0-46.0 [facility] Comment on above: Order Comment: Speci men Type: BLOOD SPECIMENOrdering Facility: [facility] Address: [address] [place] [address] Performed By: #### 5 7021-8 ####[facility] LABCLIA [id number] [place] [address] Hemoglobin (Bld) [Mass/Vol] 13.2 g/dL Normal 11.5-15.5 [facility] Comment on above: Order Comment: Speci men Type: BLOOD SPECIMENOrdering Facility: [facility] Address: [address] [place] [address] Performed By: #### 5 7021-8 ####[facility] LABCLIA [id number] [place] [address] Immature granulocytes (Bld) [#/Vol] 10*3/uL Normal <0.10 [facility] Comment on above: Order Comment: Speci men Type: BLOOD SPECIMENOrdering Facility: [facility] Address: [address] [place] [address] Performed By: #### 5 7021-8 ####[facility] LABCLIA [id number] [place] [address] MCH (RBC) [Entitic mass] 29.4 pg Normal 26.0-34.0 [facility] Comment on above: Order Comment: Speci men Type: BLOOD SPECIMENOrdering Facility: [facility] Address: [address] [place] [address] Performed By: #### 5 7021-8 ####[facility] LABCLIA [id number] [place] [address] MCHC (RBC) [Mass/Vol] 32.9 g/dL Normal 30.5-36.0 [facility] Comment on above: Order Comment: Speci men Type: BLOOD SPECIMENOrdering Facility: [facility] Address: [address] [place] [address] Performed By: #### 5 7021-8 ####[facility] LABCLIA [id number] [place] [address] MCV (RBC) [Entitic vol] 89.3 fL Normal 80.0-100.0 [facility] Comment on above: Order Comment: Speci men Type: BLOOD SPECIMENOrdering Facility: [facility] Address: [address] [place] [address] Performed By: #### 5 7021-8 ####[facility] LABCLIA [id number] [place] [address] Neutrophils (Bld) [#/Vol] 3.03 10*3/uL Normal 1.45-7.50 [facility] Comment on above: Order Comment: Speci men Type: BLOOD SPECIMENOrdering Facility: [facility] Address: [address] [place] [address] Performed By: #### 5 7021-8 ####[facility] LABCLIA [id number] [place] [address] Nucleated RBC (Bld) [#/Vol] 10*3/uL Normal <0.01 [facility] Comment on above: Order Comment: Speci men Type: BLOOD SPECIMENOrdering Facility: [facility] Address: [address] [place] [address] Performed By: #### 5 7021-8 ####[facility] LABCLIA [id number] [place] [address] Platelet mean volume (Bld) [Entitic vol] 8.3 fL Low 9.0-12.7 [facility] Comment on above: Order Comment: Speci men Type: BLOOD SPECIMENOrdering Facility: [facility] Address: [address] [place] [address] Performed By: #### 5 7021-8 ####[facility] LABCLIA [id number] [place] [address] Platelets (Bld) [#/Vol] 284 10*3/uL Normal 150-400 [facility] Comment on above: Order Comment: Speci men Type: BLOOD SPECIMENOrdering Facility: [facility] Address: [address] [place] [address] Performed By: #### 5 7021-8 ####[facility] LABCLIA [id number] [place] [address] RBC (Bld) [#/Vol] 4.49 10*6/uL Normal 3.90-5.20 [facility] Comment on above: Order Comment: Speci men Type: BLOOD SPECIMENOrdering Facility: [facility] Address: [address] [place] [address] Performed By: #### 5 7021-8 ####[facility] LABCLIA [id number] [place] [address] WBC (Bld) [#/Vol] 4.35 10*3/uL Normal 3.70-11.00 [facility] Comment on above: Order Comment: Speci men Type: BLOOD SPECIMENOrdering Facility: [facility] Address: [address] [place] [address] Performed By: #### 5 7021-8 ####[facility] LABIA [id number] [place] [address] Comprehensive metabolic 2000 panelon 05-11-2023 Albumin [Mass/Vol] 4.6 g/dL Normal 3.9-4.9 [facility] Comment on above: Order Comment: Speci men Type: BLOOD SPECIMENOrdering Facility: [facility] Address: [address] [place] [address] Performed By: #### 2 4323-8 ####[facility] LABCLIA [id number] [place] [address] ALP [Catalytic activity/Vol] 80 U/L Normal 34-123 [facility] Comment on above: Order Comment: Speci men Type: BLOOD SPECIMENOrdering Facility: [facility] Address: [address] [place] [address] Performed By: #### 2 4323-8 ####[facility] LABCLIA [id number] [place] [address] ALT [Catalytic activity/Vol] 18 U/L Normal 7-38 [facility] Comment on above: Order Comment: Speci men Type: BLOOD SPECIMENOrdering Facility: [facility] Address: [address] [place] [address] Performed By: #### 2 4323-8 ####[facility] LABCLIA [id number] [place] [address] Anion gap [Moles/Vol] 8 mmol/L Low 9-18 [facility] Comment on above: Order Comment: Speci men Type: BLOOD SPECIMENOrdering Facility: [facility] Address: [address] [place] [address] Performed By: #### 2 4323-8 ####[facility] LABCLIA [id number] [place] [address] AST [Catalytic activity/Vol] 15 U/L Normal 13-35 [facility] Comment on above: Order Comment: Speci men Type: BLOOD SPECIMENOrdering Facility: [facility] Address: [address] [place] [address] Performed By: #### 2 4323-8 ####[facility] LABCLIA [id number] [place] [address] Bilirubin [Mass/Vol] 0.4 mg/dL Normal 0.2-1.3 [facility] Comment on above: Order Comment: Speci men Type: BLOOD SPECIMENOrdering Facility: [facility] Address: [address] [place] [address] Performed By: #### 2 4323-8 ####[facility] LABCLIA [id number] [place] [address] Calcium [Mass/Vol] 10.2 mg/dL Normal 8.5-10.2 [facility] Comment on above: Order Comment: Speci men Type: BLOOD SPECIMENOrdering Facility: [facility] Address: [address] [place] [address] Performed By: #### 2 4323-8 ####[facility] LABCLIA [id number] [place] [address] Chloride [Moles/Vol] 105 mmol/L Normal 97-105 [facility] Comment on above: Order Comment: Speci men Type: BLOOD SPECIMENOrdering Facility: [facility] Address: [address] [place] [id number] Performed By: #### 2 4323-8 ####[facility] LABCLIA [id number] [place] [address] CO2 [Moles/Vol] 29 mmol/L Normal 22-30 [facility] Comment on above: Order Comment: Speci men Type: BLOOD SPECIMENOrdering Facility: [facility] Address: [address] [place] [address] Performed By: #### 2 4323-8 ####[facility] LABCLIA [id number] [place] [address] Creatinine [Mass/Vol] 0.97 mg/dL High 0.58-0.96 [facility] Comment on above: Order Comment: Speci men Type: BLOOD SPECIMENOrdering Facility: [facility] Address: [address] [place] [address] Performed By: #### 2 4323-8 ####[facility] LABCLIA [id number] [place] [address] Creatinine and Glomerular filtration rate.predicted panel (S/P/Bld) 70 mL/min/1.73m??? Normal >=60 [facility] Comment on above: Order Comment: Speci men Type: BLOOD SPECIMENOrdering Facility: [facility] Address: [address] [place] [address] Result Comment: Ute mated Glomerular Filtration Rate (eGFR) is calculated using the 2020 CKD-EPI creatinine equation. This equation utilizes serum creatinine, sex, and age as parameters. The creatinine assay has traceable calibration to isotope dilution-mass spectrometry. Refer to KDIGO guidelines for clinical interpretation. In patients with unstable renal function, e.g. those with acute kidney injury, the eGFR may not accurately reflect actual GFR. Performed By: #### 2 4323-8 ####[facility] LABCLIA [id number] [place] [address] Glucose [Mass/Vol] 74 mg/dL Normal 74-99 [facility] Comment on above: Order Comment: Speci men Type: BLOOD SPECIMENOrdering Facility: [facility] Address: [address] [place] [id number] Result Comment: The [place] Diabetes Association (ADA) provides guidance for cutoff values for fasting glucose and random glucose. The ADA defines fasting as no caloric intake for at least 8 hours. Fasting plasma glucose results between 100 to 125 mg/dL indicate increased risk for diabetes (prediabetes).Fasting plasma glucose results greater than or equal to 126 mg/dL meet the criteria for diagnosis of diabetes. In the absence of unequivocal hyperglycemia, results should be confirmed by repeat testing. In a patient with classic symptoms of hyperglycemia or hyperglycemic crisis, random plasma glucose results greater than or equal to 200 mg/dL meet the criteria for diagnosis of diabetes.Reference: Standards of Medical Care in Diabetes 2016, [place] Diabetes Association. Diabetes Care. 2016.39(Suppl 1). Performed By: #### 2 4323-8 ####[facility] LABCLIA [id number] [place] [address] Potassium [Moles/Vol] 4.3 mmol/L Normal 3.7-5.1 [facility] Comment on above: Order Comment: Speci men Type: BLOOD SPECIMENOrdering Facility: [facility] Address: [address] [place], [place] [address] Performed By: #### 2 4323-8 ####[facility] LABCLIA [id number] [place] [address] Protein [Mass/Vol] 7.2 g/dL Normal 6.3-8.0 [facility] Comment on above: Order Comment: Speci men Type: BLOOD SPECIMENOrdering Facility: [facility] Address: [address] [place] [address] Performed By: #### 2 4323-8 ####[facility] LABCLIA [id number] [place] [address] Sodium [Moles/Vol] 142 mmol/L Normal 136-144 [facility] Comment on above: Order Comment: Speci men Type: BLOOD SPECIMENOrdering Facility: [facility] Address: [address] [place] [address] Performed By: #### 2 4323-8 ####[facility] LABCLIA [id number] [place] [address] Urea nitrogen [Mass/Vol] 14 mg/dL Normal 7-21 [facility] Comment on above: Order Comment: Speci men Type: BLOOD SPECIMENOrdering Facility: [facility] Address: [address] [place] [address] Performed By: #### 2 4323-8 ####[facility] LABCLIA [id number] [place] [address] CBC W Auto Differential pane l (Bld)on 04-28-2023 Erythrocyte distribution width (RBC) [Ratio] 14.5 % Normal 11.5-15.0 [facility] Comment on above: Order Comment: Speci men Type: BLOOD SPECIMENOrdering Facility: [facility] Address: [address] [place] [address] Performed By: #### 5 7021-8 ####[facility] LABIA [id number] [place] [address] Hematocrit (Bld) [Volume fraction] 41.4 % Normal 36.0-46.0 [facility] Comment on above: Order Comment: Speci men Type: BLOOD SPECIMENOrdering Facility: [facility] Address: [address] [place] [address] Performed By: #### 5 7021-8 ####[facility] LABCLIA [id number] [place] [address] Hemoglobin (Bld) [Mass/Vol] 13.6 g/dL Normal 11.5-15.5 [facility] Comment on above: Order Comment: Speci men Type: BLOOD SPECIMENOrdering Facility: [facility] Address: [address] [place] [address] Performed By: #### 5 7021-8 ####[facility] LABCLIA [id number] [place] [address] Immature granulocytes (Bld) [#/Vol] 10*3/uL Normal <0.10 [facility] Comment on above: Order Comment: Speci men Type: BLOOD SPECIMENOrdering Facility: [facility] Address: [address] [place] [address] Performed By: #### 5 7021-8 ####[facility] LABCLIA [id number] [place] [address] MCH (RBC) [Entitic mass] 29.2 pg Normal 26.0-34.0 [facility] Comment on above: Order Comment: Speci men Type: BLOOD SPECIMENOrdering Facility: [facility] Address: [address] [place] [address] Performed By: #### 5 7021-8 ####[facility] LABCLIA [id number] [place] [address] MCHC (RBC) [Mass/Vol] 32.9 g/dL Normal 30.5-36.0 [facility] Comment on above: Order Comment: Speci men Type: BLOOD SPECIMENOrdering Facility: [facility] Address: [address] [place] [address] Performed By: #### 5 7021-8 ####[facility] LABCLIA [id number] [place] [address] MCV (RBC) [Entitic vol] 88.8 fL Normal 80.0-100.0 [facility] Comment on above: Order Comment: Speci men Type: BLOOD SPECIMENOrdering Facility: [facility] Address: [address] [place] [address] Performed By: #### 5 7021-8 ####[facility] LABIA [id number] [place] [address] Neutrophils (Bld) [#/Vol] 2.90 10*3/uL Normal 1.45-7.50 [facility] Comment on above: Order Comment: Speci men Type: BLOOD SPECIMENOrdering Facility: [facility] Address: [address] [place] [address] Performed By: #### 5 7021-8 ####[facility] LABCLIA [id number] [place] [address] Nucleated RBC (Bld) [#/Vol] 10*3/uL Normal <0.01 [facility] Comment on above: Order Comment: Speci men Type: BLOOD SPECIMENOrdering Facility: [facility] Address: [address] [place] [address] Performed By: #### 5 7021-8 ####[facility] LABCLIA [id number] [place] [address] Platelet mean volume (Bld) [Entitic vol] 8.3 fL Low 9.0-12.7 [facility] Comment on above: Order Comment: Speci men Type: BLOOD SPECIMENOrdering Facility: [facility] Address: [address] [place] [address] Performed By: #### 5 7021-8 ####[facility] LABCLIA [id number] [place] [address] Platelets (Bld) [#/Vol] 222 10*3/uL Normal 150-400 [facility] Comment on above: Order Comment: Speci men Type: BLOOD SPECIMENOrdering Facility: [facility] Address: [address] [place] [address] Performed By: #### 5 7021-8 ####[facility] LABCLIA [id number] [place] [address] RBC (Bld) [#/Vol] 4.66 10*6/uL Normal 3.90-5.20 [facility] Comment on above: Order Comment: Speci men Type: BLOOD SPECIMENOrdering Facility: [facility] Address: [address] [place] [address] Performed By: #### 5 7021-8 ####[facility] LABCLIA [id number] [place] [address] WBC (Bld) [#/Vol] 3.97 10*3/uL Normal 3.70-11.00 [facility] Comment on above: Order Comment: Speci men Type: BLOOD SPECIMENOrdering Facility: [facility] Address: [address] [place] [address] Performed By: #### 5 7021-8 ####[facility] LABCLIA [id number] [place] [address] Comprehensive metabolic 2000 panelon 04-28-2023 Albumin [Mass/Vol] 4.4 g/dL Normal 3.9-4.9 [facility] Comment on above: Order Comment: Speci men Type: BLOOD SPECIMENOrdering Facility: [facility] Address: [address] [place] [address] Performed By: #### 2 4323-8 ####[facility] LABCLIA [id number] [place] [address] ALP [Catalytic activity/Vol] 90 U/L Normal 34-123 [facility] Comment on above: Order Comment: Speci men Type: BLOOD SPECIMENOrdering Facility: [facility] Address: [address] [place] [address] Performed By: #### 2 4323-8 ####[facility] LABCLIA [id number] [place] [address] ALT [Catalytic activity/Vol] 16 U/L Normal 7-38 [facility] Comment on above: Order Comment: Speci men Type: BLOOD SPECIMENOrdering Facility: [facility] Address: [address] [place] [address] Performed By: #### 2 4323-8 ####[facility] LABCLIA [id number] [place] [address] Anion gap [Moles/Vol] 10 mmol/L Normal 9-18 [facility] Comment on above: Order Comment: Speci men Type: BLOOD SPECIMENOrdering Facility: [facility] Address: [address] [place] [address] Performed By: #### 2 4323-8 ####[facility] LABCLIA [id number] [place] [address] AST [Catalytic activity/Vol] 16 U/L Normal 13-35 [facility] Comment on above: Order Comment: Speci men Type: BLOOD SPECIMENOrdering Facility: [facility] Address: [address] [place] [address] Performed By: #### 2 4323-8 ####[facility] LABCLIA [id number] [place] [address] Bilirubin [Mass/Vol] 0.3 mg/dL Normal 0.2-1.3 [facility] Comment on above: Order Comment: Speci men Type: BLOOD SPECIMENOrdering Facility: [facility] Address: [address] [place] [address] Performed By: #### 2 4323-8 ####[facility] LABCLIA [id number] [place] [address] Calcium [Mass/Vol] 9.5 mg/dL Normal 8.5-10.2 [facility] Comment on above: Order Comment: Speci men Type: BLOOD SPECIMENOrdering Facility: [facility] Address: [address] [place] [address] Performed By: #### 2 4323-8 ####[facility] LABCLIA [id number] [place] [address] Chloride [Moles/Vol] 108 mmol/L High 97-105 [facility] Comment on above: Order Comment: Speci men Type: BLOOD SPECIMENOrdering Facility: [facility] Address: [address] [place] [address] Performed By: #### 2 4323-8 ####[facility] LABCLIA [id number] [place] [address] CO2 [Moles/Vol] 26 mmol/L Normal 22-30 [facility] Comment on above: Order Comment: Speci men Type: BLOOD SPECIMENOrdering Facility: [facility] Address: [address] [place], [place] [address] Performed By: #### 2 4323-8 ####[facility] LABCLIA [id number] [place] [address] Creatinine [Mass/Vol] 0.75 mg/dL Normal 0.58-0.96 [facility] Comment on above: Order Comment: Speci men Type: BLOOD SPECIMENOrdering Facility: [facility] Address: [address] [place] [address] Performed By: #### 2 4323-8 ####[facility] LABCLIA [id number] [place] [address] Creatinine and Glomerular filtration rate.predicted panel (S/P/Bld) 95 mL/min/1.73m??? Normal >=60 [facility] Comment on above: Order Comment: Speci men Type: BLOOD SPECIMENOrdering Facility: [facility] Address: [address] [place] [address] Result Comment: Ute mated Glomerular Filtration Rate (eGFR) is calculated using the 2020 CKD-EPI creatinine equation. This equation utilizes serum creatinine, sex, and age as parameters. The creatinine assay has traceable calibration to isotope dilution-mass spectrometry. Refer to KDIGO guidelines for clinical interpretation. In patients with unstable renal function, e.g. those with acute kidney injury, the eGFR may not accurately reflect actual GFR. Performed By: #### 2 4323-8 ####[facility] LABCLIA [id number] [place] [address] Glucose [Mass/Vol] 125 mg/dL High 74-99 [facility] Comment on above: Order Comment: Speci men Type: BLOOD SPECIMENOrdering Facility: [facility] [facility] Address: [address] [place] [address] Result Comment: The [place] Diabetes Association (ADA) provides guidance for cutoff values for fasting glucose and random glucose. The ADA defines fasting as no caloric intake for at least 8 hours. Fasting plasma glucose results between 100 to 125 mg/dL indicate increased risk for diabetes (prediabetes).Fasting plasma glucose results greater than or equal to 126 mg/dL meet the criteria for diagnosis of diabetes. In the absence of unequivocal hyperglycemia, results should be confirmed by repeat testing. In a patient with classic symptoms of hyperglycemia or hyperglycemic crisis, random plasma glucose results greater than or equal to 200 mg/dL meet the criteria for diagnosis of diabetes.Reference: Standards of Medical Care in Diabetes 2016, [place] Diabetes Association. Diabetes Care. 2016.39(Suppl 1). Performed By: #### 2 4323-8 ####[facility] LABCLIA [id number] [place] [address] Potassium [Moles/Vol] 4.6 mmol/L Normal 3.7-5.1 [facility] Comment on above: Order Comment: Speci men Type: BLOOD SPECIMENOrdering Facility: [facility] Address: [address] [place] [address] Performed By: #### 2 4323-8 ####[facility] LABCLIA [id number] [place] [address] Protein [Mass/Vol] 6.9 g/dL Normal 6.3-8.0 [facility] Comment on above: Order Comment: Speci men Type: BLOOD SPECIMENOrdering Facility: [facility] Address: [address] [place] [address] Performed By: #### 2 4323-8 ####[facility] LABCLIA [id number] [place] [address] Sodium [Moles/Vol] 144 mmol/L Normal 136-144 [facility] Comment on above: Order Comment: Speci men Type: BLOOD SPECIMENOrdering Facility: [facility] Address: [address] [place] [address] Performed By: #### 2 4323-8 ####[facility] LABCLIA [id number] [place] [address] Urea nitrogen [Mass/Vol] 9 mg/dL Normal 7-21 [facility] Comment on above: Order Comment: Speci men Type: BLOOD SPECIMENOrdering Facility: [facility] Address: [address] [place] [address] Performed By: #### 2 4323-8 ####[facility] LABCLIA [id number] [place] [address] CNPNon 04-17-2023 CNPN Normal [facility] XR CHEST 2V FRONTAL/LATon XR CHEST 2V FRONTAL/LAT Normal [facility] CBC W Auto Differential pane l (Bld)on 04-14-2023 Erythrocyte distribution width (RBC) [Ratio] 13.7 % Normal 11.5-15.0 [facility] Comment on above: Order Comment: Speci men Type: BLOOD SPECIMENOrdering Facility: [facility] Address: [address] [place] [address] Performed By: #### 5 7021-8 ####[facility] LABCLIA [id number] [place] [address] Hematocrit (Bld) [Volume fraction] 39.2 % Normal 36.0-46.0 [facility] Comment on above: Order Comment: Speci men Type: BLOOD SPECIMENOrdering Facility: [facility] Address: [address] [place] [address] Performed By: #### 5 7021-8 ####[facility] LABCLIA [id number] [place] [address] Hemoglobin (Bld) [Mass/Vol] 13.1 g/dL Normal 11.5-15.5 [facility] Comment on above: Order Comment: Speci men Type: BLOOD SPECIMENOrdering Facility: [facility] Address: [address] [place] [address] Performed By: #### 5 7021-8 ####[facility] LABIA [id number] [place] [address] Immature granulocytes (Bld) [#/Vol] 10*3/uL Normal <0.10 [facility] Comment on above: Order Comment: Speci men Type: BLOOD SPECIMENOrdering Facility: [facility] Address: [address] [place] [address] Performed By: #### 5 7021-8 ####[facility] LABCLIA [id number] [place] [address] MCH (RBC) [Entitic mass] 28.7 pg Normal 26.0-34.0 [facility] Comment on above: Order Comment: Speci men Type: BLOOD SPECIMENOrdering Facility: [facility] Address: [address] [place] [address] Performed By: #### 5 7021-8 ####[facility] LABCLIA [id number] [place] [address] MCHC (RBC) [Mass/Vol] 33.4 g/dL Normal 30.5-36.0 [facility] Comment on above: Order Comment: Speci men Type: BLOOD SPECIMENOrdering Facility: [facility] Address: [address] [place] [address] Performed By: #### 5 7021-8 ####[facility] LABCLIA [id number] [place] [address] MCV (RBC) [Entitic vol] 85.8 fL Normal 80.0-100.0 [facility] Comment on above: Order Comment: Speci men Type: BLOOD SPECIMENOrdering Facility: [facility] Address: [address] [place] [address] Performed By: #### 5 7021-8 ####[facility] LABCLIA [id number] [place] [address] Neutrophils (Bld) [#/Vol] 2.15 10*3/uL Normal 1.45-7.50 [facility] Comment on above: Order Comment: Speci men Type: BLOOD SPECIMENOrdering Facility: [facility] Address: [address] [place] [address] Performed By: #### 5 7021-8 ####[facility] LABCLIA [id number] [place] [address] Nucleated RBC (Bld) [#/Vol] 10*3/uL Normal <0.01 [facility] Comment on above: Order Comment: Speci men Type: BLOOD SPECIMENOrdering Facility: [facility] Address: [address] [place] [address] Performed By: #### 5 7021-8 ####[facility] LABCLIA [id number] [place] [address] Platelet mean volume (Bld) [Entitic vol] 8.2 fL Low 9.0-12.7 [facility] Comment on above: Order Comment: Speci men Type: BLOOD SPECIMENOrdering Facility: [facility] Address: [address] [place] [address] Performed By: #### 5 7021-8 ####[facility] LABCLIA [id number] [place] [address] Platelets (Bld) [#/Vol] 255 10*3/uL Normal 150-400 [facility] Comment on above: Order Comment: Speci men Type: BLOOD SPECIMENOrdering Facility: [facility] Address: [address] [place] [address] Performed By: #### 5 7021-8 ####[facility] LABCLIA [id number] [place] [address] RBC (Bld) [#/Vol] 4.57 10*6/uL Normal 3.90-5.20 [facility] Comment on above: Order Comment: Speci men Type: BLOOD SPECIMENOrdering Facility: [facility] Address: [address] [place] [address] Performed By: #### 5 7021-8 ####[facility] LABCLIA [id number] [place] [address] WBC (Bld) [#/Vol] 3.23 10*3/uL Low 3.70-11.00 [facility] Comment on above: Order Comment: Speci men Type: BLOOD SPECIMENOrdering Facility: [facility] Address: [address] [place] [address] Performed By: #### 5 7021-8 ####[facility] LABCLIA [id number] [place] [address] Erythrocyte distribution width (RBC) [Ratio] 13.7 % 11.5 - 15.0 % [facility] Hematocrit (Bld) [Volume fraction] 39.2 % 36.0 - 46.0 % [facility] Hemoglobin (Bld) [Mass/Vol] 13.1 g/dL 11.5 - 15.5 g/dL [facility] Immature granulocytes (Bld) [#/Vol] <0.10 k/uL [facility] MCH (RBC) [Entitic mass] 28.7 pg 26.0 - 34.0 pg [facility] MCHC (RBC) [Mass/Vol] 33.4 g/dL 30.5 - 36.0 g/dL [facility] MCV (RBC) [Entitic vol] 85.8 fL 80.0 - 100.0 fL [facility] Neutrophils (Bld) [#/Vol] 2.15 10*3/uL 1.45 - 7.50 k/uL [facility] Nucleated RBC (Bld) [#/Vol] <0.01 k/uL [facility] Platelet mean volume (Bld) [Entitic vol] 8.2 fL Low 9.0 - 12.7 fL [facility] Platelets (Bld) [#/Vol] 255 10*3/uL 150 - 400 k/uL [facility] RBC (Bld) [#/Vol] 4.57 10*6/uL 3.90 - 5.2 0 m/uL [facility] WBC (Bld) [#/Vol] 3.23 10*3/uL Low 3.70 - 11. 00 k/uL [facility] CNPNon 04-14-2023 CNPN Normal [facility] Comprehensive metabolic 2000 panelon 04-14-2023 Albumin [Mass/Vol] 4.5 g/dL Normal 3.9-4.9 [facility] Comment on above: Order Comment: Speci men Type: BLOOD SPECIMENOrdering Facility: [facility] Address: [address] [place] [address] Performed By: #### 2 4323-8 ####[facility] LABCLIA [id number] [place] [address] ALP [Catalytic activity/Vol] 96 U/L Normal 34-123 [facility] Comment on above: Order Comment: Speci men Type: BLOOD SPECIMENOrdering Facility: [facility] Address: [address] [place] [address] Performed By: #### 2 4323-8 ####[facility] LABCLIA [id number] [place] [address] ALT [Catalytic activity/Vol] 19 U/L Normal 7-38 [facility] Comment on above: Order Comment: Speci men Type: BLOOD SPECIMENOrdering Facility: [facility] Address: [address] [place] [address] Performed By: #### 2 4323-8 ####[facility] LABCLIA [id number] [place] [address] Anion gap [Moles/Vol] 9 mmol/L Normal 9-18 [facility] Comment on above: Order Comment: Speci men Type: BLOOD SPECIMENOrdering Facility: [facility] Address: [address] [place] [address] Performed By: #### 2 4323-8 ####[facility] LABCLIA [id number] [place] [address] AST [Catalytic activity/Vol] 12 U/L Low 13-35 [facility] Comment on above: Order Comment: Speci men Type: BLOOD SPECIMENOrdering Facility: [facility] Address: [address] [place] [address] Performed By: #### 2 4323-8 ####[facility] LABCLIA [id number] [place] [address] Bilirubin [Mass/Vol] 0.3 mg/dL Normal 0.2-1.3 [facility] Comment on above: Order Comment: Speci men Type: BLOOD SPECIMENOrdering Facility: [facility] Address: [address] [place] [address] Performed By: #### 2 4323-8 ####[facility] LABCLIA [id number] [place] [address] Calcium [Mass/Vol] 9.6 mg/dL Normal 8.5-10.2 [facility] Comment on above: Order Comment: Speci men Type: BLOOD SPECIMENOrdering Facility: [facility] Address: [address] [place] [address] Performed By: #### 2 4323-8 ####[facility] LABCLIA [id number] [place] [address] Chloride [Moles/Vol] 108 mmol/L High 97-105 [facility] Comment on above: Order Comment: Speci men Type: BLOOD SPECIMENOrdering Facility: [facility] Address: [address] [place] [address] Performed By: #### 2 4323-8 ####[facility] LABCLIA [id number] [place] [address] CO2 [Moles/Vol] 26 mmol/L Normal 22-30 [facility] Comment on above: Order Comment: Speci men Type: BLOOD SPECIMENOrdering Facility: [facility] Address: [address] [place] [address] Performed By: #### 2 4323-8 ####[facility] LABCLIA [id number] [place] [address] Creatinine [Mass/Vol] 0.88 mg/dL Normal 0.58-0.96 [facility] Comment on above: Order Comment: Speci men Type: BLOOD SPECIMENOrdering Facility: [facility] Address: [address] [place] [address] Performed By: #### 2 4323-8 ####[facility] LABIA [id number] [place] [address] Creatinine and Glomerular filtration rate.predicted panel (S/P/Bld) 78 mL/min/1.73m??? Normal >=60 [facility] Comment on above: Order Comment: Speci men Type: BLOOD SPECIMENOrdering Facility: [facility] Address: [facility] [place] [address] Result Comment: Ute mated Glomerular Filtration Rate (eGFR) is calculated using the 2020 CKD-EPI creatinine equation. This equation utilizes serum creatinine, sex, and age as parameters. The creatinine assay has traceable calibration to isotope dilution-mass spectrometry. Refer to KDIGO guidelines for clinical interpretation. In patients with unstable renal function, e.g. those with acute kidney injury, the eGFR may not accurately reflect actual GFR. Performed By: #### 2 4323-8 ####[facility] LABCLIA [id number] [place] [address] Glucose [Mass/Vol] 109 mg/dL High 74-99 [facility] Comment on above: Order Comment: Comfort vigil Type: BLOOD SPECIMENOrdering Facility: [facility] Address: [address] [place] [address] Result Comment: The [place] Diabetes Association (ADA) provides guidance for cutoff values for fasting glucose and random glucose. The ADA defines fasting as no caloric intake for at least 8 hours. Fasting plasma glucose results between 100 to 125 mg/dL indicate increased risk for diabetes (prediabetes).Fasting plasma glucose results greater than or equal to 126 mg/dL meet the criteria for diagnosis of diabetes. In the absence of unequivocal hyperglycemia, results should be confirmed by repeat testing. In a patient with classic symptoms of hyperglycemia or hyperglycemic crisis, random plasma glucose results greater than or equal to 200 mg/dL meet the criteria for diagnosis of diabetes.Reference: Standards of Medical Care in Diabetes 2016, [place] Diabetes Association. Diabetes Care. 2016.39(Suppl 1). Performed By: #### 2 4323-8 ####[facility] LABCLIA [id number] [place] [address] Potassium [Moles/Vol] 3.9 mmol/L Normal 3.7-5.1 [facility] Comment on above: Order Comment: Comfort vigil Type: BLOOD SPECIMENOrdering Facility: [facility] Address: [address] [place] [address] Performed By: #### 2 4323-8 ####[facility] LABCLIA [id number] [place] [address] Protein [Mass/Vol] 7.0 g/dL Normal 6.3-8.0 [facility] Comment on above: Order Comment: Speci men Type: BLOOD SPECIMENOrdering Facility: [facility] Address: [address] [place] [address] Performed By: #### 2 4323-8 ####[facility] LABCLIA [id number] [place] [address] Sodium [Moles/Vol] 143 mmol/L Normal 136-144 [facility] Comment on above: Order Comment: Speci men Type: BLOOD SPECIMENOrdering Facility: [facility] Address: [address] [place] [address] Performed By: #### 2 4323-8 ####[facility] LABCLIA [id number] [place] [address] Urea nitrogen [Mass/Vol] 10 mg/dL Normal 7-21 [facility] Comment on above: Order Comment: Speci men Type: BLOOD SPECIMENOrdering Facility: [facility] Address: [address] [place] [address] Performed By: #### 2 4323-8 ####[facility] LABCLIA [id number] [place] [address] Albumin [Mass/Vol] 4.5 g/dL 3.9 - 4.9 g/dL [facility] ALP [Catalytic activity/Vol] 96 U/L 34 - 123 U/L [facility] ALT [Catalytic activity/Vol] 19 U/L 7 - 38 U/L [facility] Anion gap [Moles/Vol] 9 mmol/L 9 - 18 mmol/L [facility] AST [Catalytic activity/Vol] 12 U/L Low 13 - 35 U/L [facility] Bilirubin [Mass/Vol] 0.3 mg/dL 0.2 - 1.3 mg/dL [facility] Calcium [Mass/Vol] 9.6 mg/dL 8.5 - 10. 2 mg/dL [facility] Chloride [Moles/Vol] 108 mmol/L High 97 - 105 mmol/L [facility] CO2 [Moles/Vol] 26 mmol/L 22 - 30 mmol/L [facility] Creatinine [Mass/Vol] 0.88 mg/dL 0.58 - 0.96 mg/dL [facility] Estimated Glomerular Filtration Rate 78 mL/min/1.73m >=60 mL/min/1.73m [facility] Glucose [Mass/Vol] 109 mg/dL High 74 - 99 mg/dL [facility] Potassium [Moles/Vol] 3.9 mmol/L 3.7 - 5.1 mmol/L [facility] Protein [Mass/Vol] 7.0 g/dL 6.3 - 8.0 g/dL [facility] Sodium [Moles/Vol] 143 mmol/L 136 - 144 mmol/L [facility] Urea nitrogen [Mass/Vol] 10 mg/dL 7 - 21 mg/dL [facility] CBC W Auto Differential pane l (Bld)on 04-04-2023 Erythrocyte distribution width (RBC) [Ratio] 13.1 % Normal 11.5-15.0 [facility] Comment on above: Order Comment: Speci men Type: BLOOD SPECIMENOrdering Facility: [facility] Address: [address] [place] [address] Performed By: #### 5 7021-8 ####[facility] [id number] [place] [address] [place] Hematocrit (Bld) [Volume fraction] 41.0 % Normal 36.0-46.0 [facility] Comment on above: Order Comment: Speci men Type: BLOOD SPECIMENOrdering Facility: [facility] Address: [address] [place] [address] Performed By: #### 5 7021-8 ####[facility] [id number] [place] [address] [place] Hemoglobin (Bld) [Mass/Vol] 13.4 g/dL Normal 11.5-15.5 [facility] Comment on above: Order Comment: Speci men Type: BLOOD SPECIMENOrdering Facility: [facility] Address: [address] [place] [address] Performed By: #### 5 7021-8 ####[facility] [id number] [place] [address] [place] Immature granulocytes (Bld) [#/Vol] 10*3/uL Normal <0.10 [facility] Comment on above: Order Comment: Speci men Type: BLOOD SPECIMENOrdering Facility: [facility] Address: [address] [place] [address] Performed By: #### 5 7021-8 ####[facility] [id number] [place] [address] [place] MCH (RBC) [Entitic mass] 29.0 pg Normal 26.0-34.0 [facility] Comment on above: Order Comment: Speci men Type: BLOOD SPECIMENOrdering Facility: [facility] Address: [address] [place] [address] Performed By: #### 5 7021-8 ####[facility] [id number] [place] [address] [place] MCHC (RBC) [Mass/Vol] 32.7 g/dL Normal 30.5-36.0 [facility] Comment on above: Order Comment: Speci men Type: BLOOD SPECIMENOrdering Facility: [facility] Address: [address] [place] [address] Performed By: #### 5 7021-8 ####[facility] [id number] [place] [address] [place] MCV (RBC) [Entitic vol] 88.7 fL Normal 80.0-100.0 [facility] Comment on above: Order Comment: Speci men Type: BLOOD SPECIMENOrdering Facility: [facility] Address: [address] [place] [address] Performed By: #### 5 7021-8 ####[facility] [id number] [place] [address] [place] Neutrophils (Bld) [#/Vol] 3.23 10*3/uL Normal 1.45-7.50 [facility] Comment on above: Order Comment: Speci men Type: BLOOD SPECIMENOrdering Facility: [facility] Address: [address] [place] [address] Performed By: #### 5 7021-8 ####[facility] [id number] [place] [address] [place] Nucleated RBC (Bld) [#/Vol] 10*3/uL Normal <0.01 [facility] Comment on above: Order Comment: Speci men Type: BLOOD SPECIMENOrdering Facility: [facility] Address: [address] [place] [address] Performed By: #### 5 7021-8 ####[facility] [id number] [place] [address] [place] Platelet mean volume (Bld) [Entitic vol] 8.5 fL Low 9.0-12.7 [facility] Comment on above: Order Comment: Speci men Type: BLOOD SPECIMENOrdering Facility: [facility] Address: [address] [place] [address] Performed By: #### 5 7021-8 ####[facility] [id number] [place] [address] [place] Platelets (Bld) [#/Vol] 264 10*3/uL Normal 150-400 [facility] Comment on above: Order Comment: Speci men Type: BLOOD SPECIMENOrdering Facility: [facility] Address: [address] [place] [address] Performed By: #### 5 7021-8 ####[facility] [id number] [place] [address] [place] RBC (Bld) [#/Vol] 4.62 10*6/uL Normal 3.90-5.20 [facility] Comment on above: Order Comment: Speci men Type: BLOOD SPECIMENOrdering Facility: [facility] Address: [address] [place] [address] Performed By: #### 5 7021-8 ####[facility] [id number] [place] [address] [place] WBC (Bld) [#/Vol] 4.28 10*3/uL Normal 3.70-11.00 [facility] Comment on above: Order Comment: Speci men Type: BLOOD SPECIMENOrdering Facility: [facility] Address: [address] [place] [address] Performed By: #### 5 7021-8 ####[facility] [id number] [place] [address] [place] CNOVSPon 04-04-2023 CNOVSP Normal [facility] Comprehensive metabolic 2000 panelon 04-04-2023 Albumin [Mass/Vol] 4.4 g/dL Normal 3.9-4.9 [facility] Comment on above: Order Comment: Speci men Type: BLOOD SPECIMENOrdering Facility: [facility] Address: [address] [place] [address] Performed By: #### 2 4323-8 ####[facility] [id number] [place] [address] [place] ALP [Catalytic activity/Vol] 93 U/L Normal 34-123 [facility] Comment on above: Order Comment: Speci men Type: BLOOD SPECIMENOrdering Facility: [facility] Address: [address] [place] [address] Performed By: #### 2 4323-8 ####[facility] [id number] [place] [address] [place] ALT [Catalytic activity/Vol] 29 U/L Normal 7-38 [facility] Comment on above: Order Comment: Speci men Type: BLOOD SPECIMENOrdering Facility: [facility] Address: [address] [place] [address] Performed By: #### 2 4323-8 ####[facility] [id number] [place] [address] [place] Anion gap [Moles/Vol] 9 mmol/L Normal 9-18 [facility] Comment on above: Order Comment: Speci men Type: BLOOD SPECIMENOrdering Facility: [facility] Address: [address] [place] [address] Performed By: #### 2 4323-8 ####[facility] [id number] [place] [address] [place] AST [Catalytic activity/Vol] 16 U/L Normal 13-35 [facility] Comment on above: Order Comment: Speci men Type: BLOOD SPECIMENOrdering Facility: [facility] Address: [address] [place] [address] Performed By: #### 2 4323-8 ####[facility] [id number] [place] [address] [place] Bilirubin [Mass/Vol] 0.3 mg/dL Normal 0.2-1.3 [facility] Comment on above: Order Comment: Speci men Type: BLOOD SPECIMENOrdering Facility: [facility] Address: [address] [place] [address] Performed By: #### 2 4323-8 ####[facility] [id number] [place] [address] [place] Calcium [Mass/Vol] 10.1 mg/dL Normal 8.5-10.2 [facility] Comment on above: Order Comment: Speci men Type: BLOOD SPECIMENOrdering Facility: [facility] Address: [address] [place] [address] Performed By: #### 2 4323-8 ####[facility] [id number] [place] [address] [place] Chloride [Moles/Vol] 104 mmol/L Normal 97-105 [facility] Comment on above: Order Comment: Speci men Type: BLOOD SPECIMENOrdering Facility: [facility] Address: [address] [place] [address] Performed By: #### 2 4323-8 ####[facility] [id number] [address] [place] CO2 [Moles/Vol] 28 mmol/L Normal 22-30 [facility] Comment on above: Order Comment: Speci men Type: BLOOD SPECIMENOrdering Facility: [facility] Address: [address] [place] [address] Performed By: #### 2 4323-8 ####[facility] [id number] [address] STATES OF [facility] Creatinine [Mass/Vol] 0.76 mg/dL Normal 0.58-0.96 [facility] Comment on above: Order Comment: Speci men Type: BLOOD SPECIMENOrdering Facility: [facility] Address: [address] [place] [address] Performed By: #### 2 4323-8 ####[facility] [id number] [address] Creatinine and Glomerular filtration rate.predicted panel (S/P/Bld) 93 mL/min/1.73m??? Normal >=60 [facility] Comment on above: Order Comment: Speci men Type: BLOOD SPECIMENOrdering Facility: [facility] Address: [address] [place] [address] Result Comment: Ute mated Glomerular Filtration Rate (eGFR) is calculated using the 2020 CKD-EPI creatinine equation. This equation utilizes serum creatinine, sex, and age as parameters. The creatinine assay has traceable calibration to isotope dilution-mass spectrometry. Refer to KDIGO guidelines for clinical interpretation. In patients with unstable renal function, e.g. those with acute kidney injury, the eGFR may not accurately reflect actual GFR. Performed By: #### 2 4323-8 ####[facility] [id number] [place] [address] [place] Glucose [Mass/Vol] 80 mg/dL Normal 74-99 [facility] Comment on above: Order Comment: Speci men Type: BLOOD SPECIMENOrdering Facility: [facility] Address: [address] [place] [address] Result Comment: The [place] Diabetes Association (ADA) provides guidance for cutoff values for fasting glucose and random glucose. The ADA defines fasting as no caloric intake for at least 8 hours. Fasting plasma glucose results between 100 to 125 mg/dL indicate increased risk for diabetes (prediabetes).Fasting plasma glucose results greater than or equal to 126 mg/dL meet the criteria for diagnosis of diabetes. In the absence of unequivocal hyperglycemia, results should be confirmed by repeat testing. In a patient with classic symptoms of hyperglycemia or hyperglycemic crisis, random plasma glucose results greater than or equal to 200 mg/dL meet the criteria for diagnosis of diabetes.Reference: Standards of Medical Care in Diabetes 2016, [place] [employer] Association. Diabetes Care. 2016.39(Suppl 1). Performed By: #### 2 4323-8 ####[facility] [id number] [place] [address] [place] Potassium [Moles/Vol] 3.9 mmol/L Normal 3.7-5.1 [facility] Comment on above: Order Comment: Speci men Type: BLOOD SPECIMENOrdering Facility: [facility] Address: [address] [place] [address] Performed By: #### 2 4323-8 ####[facility] [id number] [place] [address] [place] Protein [Mass/Vol] 7.1 g/dL Normal 6.3-8.0 [facility] Comment on above: Order Comment: Speci men Type: BLOOD SPECIMENOrdering Facility: [facility] Address: [address] [place] [address] Performed By: #### 2 4323-8 ####[facility] [id number] [place] [address] [place] Sodium [Moles/Vol] 141 mmol/L Normal 136-144 [facility] Comment on above: Order Comment: Speci men Type: BLOOD SPECIMENOrdering Facility: [facility] Address: [address] [place] [address] Performed By: #### 2 4323-8 ####[facility] [id number] [place] [address] [place] Urea nitrogen [Mass/Vol] 11 mg/dL Normal 7-21 [facility] Comment on above: Order Comment: Speci men Type: BLOOD SPECIMENOrdering Facility: [facility] Address: [address] [place] [address] Performed By: #### 2 4323-8 ####[facility] [id number] [place] [address] [place] CNPNon 03-28-2023 CNPN Normal [facility] CNOVon 03-10-2023 CNOV Normal [facility] CNPNon 02-27-2023 CNPN Normal [facility] CNPNon 02-21-2023 CNPN Normal [facility] CNOVon 02-15-2023 CNOV Normal [facility] CNCNPATEDon 02-13-2023 CNCNPATED Normal [facility] CNOVSPon 02-13-2023 CNOVSP Normal [facility] CNOVon 02-08-2023 CNOV Normal [facility] CNOVon 02-01-2023 CNOV Normal [facility] CNPNon 01-25-2023 CNPN Normal [facility] CNPNon 01-23-2023 CNPN Normal [facility] CNNURSEon 01-16-2023 CNNURSE Normal [facility] CNOVon 01-16-2023 CNOV Normal [facility] CNSWon 01-16-2023 CNSW Normal [facility] CNPNon 01-05-2023 CNPN Normal [facility] CNPNon 12-23-2022 CNPN Normal [facility] CNPNon 12-20-2022 CNPN Normal [facility] CNOVSPon 12-19-2022 CNOVSP Normal [facility] CNPNon 12-19-2022 CNPN Normal [facility] FERRITIN BLDon 12-19-2022 Ferritin [Mass/Vol] 141.0 ng/mL 14.7 - 205.1 ng/mL [facility] Ferritin SerPl-mCncon 2022 Ferritin [Mass/Vol] 141.0 ng/mL Normal 14.7-205.1 [facility] Comment on above: Order Comment: Speci men Type: BLOOD SPECIMENOrdering Facility: [facility] Address: [address] [place] [address] Performed By: #### 2 276-4 ####[facility] [id number] [place] [address] [place] Iron and Iron binding capaci ty panelon 12-19-2022 Iron [Mass/Vol] 46 ug/dL Normal 41-186 [facility] Comment on above: Order Comment: Speci men Type: BLOOD SPECIMENOrdering Facility: [facility] Address: [address] [address] Performed By: #### 5 0190-8 ####[facility] [id number] [place] [address] [place] Iron binding capacity [Mass/Vol] 327 ug/dL Normal 232-386 [facility] Comment on above: Order Comment: Speci men Type: BLOOD SPECIMENOrdering Facility: [facility] Address: [address] Performed By: #### 5 0190-8 ####[facility] [id number] [place] [address] [place] Iron/TIBC [Molar ratio] 14.1 % Low 15.0-57.0 [facility] Comment on above: Order Comment: Speci men Type: BLOOD SPECIMENOrdering Facility: [facility] Address: [address] [place] [address] Performed By: #### 5 0190-8 ####[facility] [id number] [place] [address] [place] Iron [Mass/Vol] 46 ug/dL 41 - 186 ug/dL [facility] Iron binding capacity [Mass/Vol] 327 ug/dL 232 - 386 ug/dL [facility] Iron/TIBC [Molar ratio] 14.1 % Low 15.0 - 57.0 % [facility] NM BONE WHOLE BODYon 023 NM BONE WHOLE BODY Normal [facility] CNPTOUTREACHon 12-15-2022 CNPTOUTREACH Normal [facility] CBC W Auto Differential pane l (Bld)on 12-14-2022 Erythrocyte distribution width (RBC) [Ratio] 14.0 % Normal 11.5-15.0 [facility] Comment on above: Order Comment: Speci men Type: BLOOD SPECIMEN [facility] Address: [address] [place] [address] Performed By: #### 5 7021-8 #### [facility] CLIA [id number] [address] [place] [address] [place] Hematocrit (Bld) [Volume fraction] 39.9 % Normal 36.0-46.0 [facility] Comment on above: Order Comment: Speci men Type: BLOOD SPECIMEN [facility] Address: [address] [place] [address] Performed By: #### 5 7021-8 #### [facility] CLIA [id number] [address] [place] [address] [place] Hemoglobin (Bld) [Mass/Vol] 12.7 g/dL Normal 11.5-15.5 [facility] Comment on above: Order Comment: Speci men Type: BLOOD SPECIMEN [facility] Address: [address] [place] [address] Performed By: #### 5 7021-8 #### [facility] CLIA [id number] [address] [place] [address] [place] Immature granulocytes (Bld) [#/Vol] 10*3/uL Normal <0.10 [facility] Comment on above: Order Comment: Speci men Type: BLOOD SPECIMEN [facility] Address: [address] Performed By: #### 5 7021-8 #### [facility] CLIA [id number] [address] [place] MCH (RBC) [Entitic mass] 28.9 pg Normal 26.0-34.0 [facility] Comment on above: Order Comment: Speci men Type: BLOOD SPECIMEN [facility] Address: [address] [place], [place] [address] Performed By: #### 5 7021-8 #### [facility] CLIA [id number] [address] [place] [address] [place] MCHC (RBC) [Mass/Vol] 31.8 g/dL Normal 30.5-36.0 [facility] Comment on above: Order Comment: Speci men Type: BLOOD SPECIMEN [facility] Address: [address] [place], [place] [address] Performed By: #### 5 7021-8 #### [facility] CLIA [id number] [address] [place] [address] [place] MCV (RBC) [Entitic vol] 90.9 fL Normal 80.0-100.0 [facility] Comment on above: Order Comment: Speci men Type: BLOOD SPECIMEN [facility] Address: [address] Performed By: #### 5 7021-8 #### [facility] CLIA [id number] [address] [place] [address] [place] Neutrophils (Bld) [#/Vol] 3.16 10*3/uL Normal 1.45-7.50 [facility] Comment on above: Order Comment: Speci men Type: BLOOD SPECIMEN [facility] Address: [address] [place] [address] Performed By: #### 5 7021-8 #### [facility] CLIA [id number] [address] [place] [address] [place] Nucleated RBC (Bld) [#/Vol] 10*3/uL Normal <0.01 [facility] Comment on above: Order Comment: Speci men Type: BLOOD SPECIMEN [facility] Address: [address] Performed By: #### 5 7021-8 #### [facility] CLIA [id number] [address] [place] [address] [place] Platelet mean volume (Bld) [Entitic vol] 9.2 fL Normal 9.0-12.7 [facility] Comment on above: Order Comment: Speci men Type: BLOOD SPECIMEN [facility] Address: [address] Performed By: #### 5 7021-8 #### [facility] CLIA [id number] [address] [place] [address] [place] Platelets (Bld) [#/Vol] 316 10*3/uL Normal 150-400 [facility] Comment on above: Order Comment: Speci men Type: BLOOD SPECIMEN [facility] Address: [address] [place] [address] Performed By: #### 5 7021-8 #### [facility] CLIA [id number] [address] [place] [address] [place] RBC (Bld) [#/Vol] 4.39 10*6/uL Normal 3.90-5.20 [facility] Comment on above: Order Comment: Speci men Type: BLOOD SPECIMEN [facility] Address: [address] Performed By: #### 5 7021-8 #### [facility] CLIA [id number] [address] [place] [address] [place] WBC (Bld) [#/Vol] 4.55 10*3/uL Normal 3.70-11.00 [facility] Comment on above: Order Comment: Speci men Type: BLOOD SPECIMEN [facility] Address: [address] [place] [address] Performed By: #### 5 7021-8 #### [facility] CLIA [id number] [address] [place] [id number] [place] CT ABD/PEL W IVCONon 16-[address] ABD/PEL W IVCON * * *Final Report* * * DATE OF EXAM: Dec 14 2022 9:20AM MYC 0530 - CT ABD/PEL W IVCON / PROCEDURE REASON: multiple diagnoses * * * * Physician Interpretation * * * * EXAMINATION: CT CHEST WITH IV CONTRAST AND CT ABDOMEN AND PELVIS WITH IV CONTRAST CLINICAL HISTORY: Malignant 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 in female, 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 CT of the abdomen and pelvis was performed using standard technique. Contrast: IV: 100 ml of Omnipaque 350 Oral: 450 ml of Omni 240 10-25ml diluted with water CT Radiation dose: Integrated Dose-length product (DLP) for this visit = 1625 mGy*cm. CT Dose Reduction Employed: Iterative recon and mAs-kVp adjusted using patient size-age RESULT: Limitations: None. Chest: Lines, tubes, and devices: None. Lung parenchyma and pleura: There is no pleural effusion. There is mild dependent atelectasis. There is no pneumothorax or endobronchial lesion. No convincing CT evidence for pneumonia. Linear atelectasis is seen within the lingula and right middle lobe. Thoracic inlet, heart, and mediastinum: The patient is status post bilateral mastectomy, with small amount of skin thickening and fat stranding overlying mastectomy site, likely postoperative in etiology. Presumed surgical clip within the left lateral breast. There is a collection is seen overlying the right lateral chest wall, measuring approximately 3.4 x 1.2 cm (series 3, image #157). Consider postoperative hematoma versus seroma. The heart is normal in size. There is a trace pericardial effusion. Surgical clips within the right axilla from prior axillary lymph node dissection. Mildly enlarged bilateral axillary lymph nodes. For example, a right axillary lymph node measures approximately 1 cm short axis dimension (series 3, image #74). A left axillary lymph node measures approximately 1 cm short axis dimension (series 3, image #89). No gerald mediastinal or hilar lymphadenopathy is identified. Abdomen/pelvis: Liver: There are hepatic cysts. Additionally, there are subcentimeter, low-attenuation lesions seen within the liver, which are too small to characterize but statistically relate to subcentimeter cysts. Biliary: There is no biliary dilation. The gallbladder is grossly unremarkable. Spleen: No mass. No splenomegaly. Pancreas: There is no obvious focal discrete pancreatic mass or pancreatic ductal dilation. Adrenals:No mass. Kidneys: There is no hydronephrosis or perinephric fluid collection. There is an approximately 1.8 x 1.5 cm angiomyolipoma within the lower pole of the left kidney (series 3, image #55). Subcentimeter, low-attenuation lesions within each kidney are too small to characterize but statistically subcentimeter cysts. GI tract: Nonspecific wall thickening of the stomach likely to underdistention. There are no dilated loops of bowel to suggest obstruction. Moderate stool burden. Unremarkable CT appearance of a retrocecal appendix. There is sigmoid colon diverticulosis, without CT evidence for diverticulitis. Lymph nodes: Prominent, less than 1 cm abdominal lymph nodes are likely reactive. Mesentery/Peritoneum: There is no abdominal ascites. Vasculature: No abdominal aortic aneurysm. Atherosclerotic disease. Pelvis: The patient is status post hysterectomy. Phleboliths are incidentally noted within the pelvis. There are prominent, less than 1 cm pelvic lymph nodes, likely reactive. 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 Small sclerotic foci are seen within the osseous structures, which may relate to bone islands; however, continued interval surveillance is recommended. Vacuum phenomena is seen involving the sacroiliac joint spaces, bilaterally. Tiny umbilical hernia, containing omental fat. Vacuum disc phenomena and disc space narrowing is seen at L3-L4, L4-L5, and L5-S1. IMPRESSION: Status post bilateral mastectomies. Collection overlying the right lateral chest wall, likely related to postoperative hematoma or seroma. Mild bilateral axillary lymphadenopathy. Continued interval surveillance is recommended. No gerald mediastinal or hilar lymphadenopathy is identified. Otherwise, no convincing CT evidence for metastatic disease within the chest. Hepatic cysts. Subcentimeter, low-attenuation lesions within liver are too small to characterize but statistically relate to subcentimeter cysts. Otherwise, no convincing CT evidence for metastatic disease within the abdomen or pelvis. Incidentally noted is a 1.8 cm angiomyolipoma within the lower pole of the left kidney. Subcentimeter, low-attenuation lesions within each kidney are too small to characterize but st (more content not included)... Invalid Interpretation Code [facility] CT CHEST W IVCONon 3 CT CHEST W IVCON * * *Final Report* * * DATE OF EXAM: Dec 14 2022 9:20AM MYC 0539 - CT CHEST W IVCON / PROCEDURE REASON: multiple diagnoses * * * * Physician Interpretation * * * * EXAMINATION: CT CHEST WITH IV CONTRAST AND CT ABDOMEN AND PELVIS WITH IV CONTRAST CLINICAL HISTORY: Malignant 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 in female, 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 CT of the abdomen and pelvis was performed using standard technique. Contrast: IV: 100 ml of Omnipaque 350 Oral: 450 ml of Omni 240 10-25ml diluted with water CT Radiation dose: Integrated Dose-length product (DLP) for this visit = 1625 mGy*cm. CT Dose Reduction Employed: Iterative recon and mAs-kVp adjusted using patient size-age RESULT: Limitations: None. Chest: Lines, tubes, and devices: None. Lung parenchyma and pleura: There is no pleural effusion. There is mild dependent atelectasis. There is no pneumothorax or endobronchial lesion. No convincing CT evidence for pneumonia. Linear atelectasis is seen within the lingula and right middle lobe. Thoracic inlet, heart, and mediastinum: The patient is status post bilateral mastectomy, with small amount of skin thickening and fat stranding overlying mastectomy site, likely postoperative in etiology. Presumed surgical clip within the left lateral breast. There is a collection is seen overlying the right lateral chest wall, measuring approximately 3.4 x 1.2 cm (series 3, image #157). Consider postoperative hematoma versus seroma. The heart is normal in size. There is a trace pericardial effusion. Surgical clips within the right axilla from prior axillary lymph node dissection. Mildly enlarged bilateral axillary lymph nodes. For example, a right axillary lymph node measures approximately 1 cm short axis dimension (series 3, image #74). A left axillary lymph node measures approximately 1 cm short axis dimension (series 3, image #89). No gerald mediastinal or hilar lymphadenopathy is identified. Abdomen/pelvis: Liver: There are hepatic cysts. Additionally, there are subcentimeter, low-attenuation lesions seen within the liver, which are too small to characterize but statistically relate to subcentimeter cysts. Biliary: There is no biliary dilation. The gallbladder is grossly unremarkable. Spleen: No mass. No splenomegaly. Pancreas: There is no obvious focal discrete pancreatic mass or pancreatic ductal dilation. Adrenals:No mass. Kidneys: There is no hydronephrosis or perinephric fluid collection. There is an approximately 1.8 x 1.5 cm angiomyolipoma within the lower pole of the left kidney (series 3, image #55). Subcentimeter, low-attenuation lesions within each kidney are too small to characterize but statistically subcentimeter cysts. GI tract: Nonspecific wall thickening of the stomach likely to underdistention. There are no dilated loops of bowel to suggest obstruction. Moderate stool burden. Unremarkable CT appearance of a retrocecal appendix. There is sigmoid colon diverticulosis, without CT evidence for diverticulitis. Lymph nodes: Prominent, less than 1 cm abdominal lymph nodes are likely reactive. Mesentery/Peritoneum: There is no abdominal ascites. Vasculature: No abdominal aortic aneurysm. Atherosclerotic disease. Pelvis: The patient is status post hysterectomy. Phleboliths are incidentally noted within the pelvis. There are prominent, less than 1 cm pelvic lymph nodes, likely reactive. 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 Small sclerotic foci are seen within the osseous structures, which may relate to bone islands; however, continued interval surveillance is recommended. Vacuum phenomena is seen involving the sacroiliac joint spaces, bilaterally. Tiny umbilical hernia, containing omental fat. Vacuum disc phenomena and disc space narrowing is seen at L3-L4, L4-L5, and L5-S1. IMPRESSION: Status post bilateral mastectomies. Collection overlying the right lateral chest wall, likely related to postoperative hematoma or seroma. Mild bilateral axillary lymphadenopathy. Continued interval surveillance is recommended. No gerald mediastinal or hilar lymphadenopathy is identified. Otherwise, no convincing CT evidence for metastatic disease within the chest. Hepatic cysts. Subcentimeter, low-attenuation lesions within liver are too small to characterize but statistically relate to subcentimeter cysts. Otherwise, no convincing CT evidence for metastatic disease within the abdomen or pelvis. Incidentally noted is a 1.8 cm angiomyolipoma within the lower pole of the left kidney. Subcentimeter, low-attenuation lesions within each kidney are too small to characterize but stat (more content not included)... Invalid Interpretation Code [facility] Comprehensive metabolic 2000 panelon 12-14-2022 Albumin [Mass/Vol] 4.1 g/dL Normal 3.9-4.9 [facility] Comment on above: Order Comment: Comfort vigil Type: BLOOD SPECIMEN [facility] Address: [address] [place] [address] Performed By: #### 2 4323-8 #### [facility] CLIA [id number] [address] [place] [address] [place] ALP [Catalytic activity/Vol] 68 U/L Normal 34-104 [facility] Comment on above: Order Comment: Comfort vigil Type: BLOOD SPECIMEN [facility] Address: [address] [address] Performed By: #### 2 4323-8 #### [facility] CLIA [id number] [address] [place] [address] [place] ALT [Catalytic activity/Vol] 63 U/L High 7-52 [facility] Comment on above: Order Comment: Comfort vigil Type: BLOOD SPECIMEN [facility] Address: [address] [place] [place] [address] Performed By: #### 2 4323-8 #### [facility] CLIA [id number] [address] [facility] [place] [address] [place] Anion gap [Moles/Vol] 6 mmol/L Low 9-18 [facility] Comment on above: Order Comment: Speci men Type: BLOOD SPECIMEN [facility] Address: [address] [place] [place] [address] Performed By: #### 2 4323-8 #### [facility] CLIA [id number] [address] [place] [address] [place] AST [Catalytic activity/Vol] 37 U/L Normal 13-39 [facility] Comment on above: Order Comment: Speci men Type: BLOOD SPECIMEN [facility] Address: [address] [place] [place] [address] Performed By: #### 2 4323-8 #### [facility] CLIA [id number] [address] [place] [address] [place] Bilirubin [Mass/Vol] 0.5 mg/dL Normal 0.2-1.3 [facility] Comment on above: Order Comment: Speci men Type: BLOOD SPECIMEN [facility] Address: [address] [place] [address] Performed By: #### 2 4323-8 #### [facility] CLIA [id number] [address] [place] [address] [place] Calcium [Mass/Vol] 9.5 mg/dL Normal 8.5-10.2 [facility] Comment on above: Order Comment: Speci men Type: BLOOD SPECIMEN [facility] Address: [address] Performed By: #### 2 4323-8 #### [facility] CLIA [id number] [address] [place] [address] [place] Chloride [Moles/Vol] 100 mmol/L Normal 98-107 [facility] Comment on above: Order Comment: Speci men Type: BLOOD SPECIMEN Ordering Facility: [facility] Address: [address] [address] Performed By: #### 2 4323-8 #### [facility] CLIA [id number] [address] [place] [address] [place] CO2 [Moles/Vol] 30 mmol/L Normal 22-30 [facility] Comment on above: Order Comment: Speci men Type: BLOOD SPECIMEN Ordering Facility: [facility] Address: [address] [address] Performed By: #### 2 4323-8 #### [facility] CLIA [id number] [address] [place] [address] [facility] Creatinine [Mass/Vol] 0.67 mg/dL Normal 0.60-1.30 [facility] Comment on above: Order Comment: Katalinai men Type: BLOOD SPECIMEN Ordering Facility: [facility] Address: [address] [address] Performed By: #### 2 4323-8 #### [facility] CLIA [id number] [address] [place] [address] [facility] ESTIMATED GLOMERULAR FILTRATION RATE 104 mL/min/1.73m??? Normal >=60 [facility] Comment on above: Order Comment: Katalinai men Type: BLOOD SPECIMEN Ordering Facility: [facility] Address: [address] [place] [address] Result Comment: Ute mated Glomerular Filtration Rate (eGFR) is calculated using the 2020 CKD-EPI creatinine equation. This equation utilizes serum creatinine, sex, and age as parameters. The creatinine assay has traceable calibration to isotope dilution-mass spectrometry. Refer to KDIGO guidelines for clinical interpretation. In patients with unstable renal function, e.g. those with acute kidney injury, the eGFR may not accurately reflect actual GFR. Performed By: #### 2 4323-8 #### [facility] CLIA [id number] [address] [place] [address] [place] Glucose [Mass/Vol] 85 mg/dL Normal 74-99 [facility] Comment on above: Order Comment: Speci men Type: BLOOD SPECIMEN Ordering Facility: [facility] Address: [address] [address] Result Comment: The [place] Diabetes Association (ADA) provides guidance for cutoff values for fasting glucose and random glucose. The ADA defines fasting as no caloric intake for at least 8 hours. Fasting plasma glucose results between 100 to 125 mg/dL indicate increased risk for diabetes (prediabetes). Fasting plasma glucose results greater than or equal to 126 mg/dL meet the criteria for diagnosis of diabetes. In the absence of unequivocal hyperglycemia, results should be confirmed by repeat testing. In a patient with classic symptoms of hyperglycemia or hyperglycemic crisis, random plasma glucose results greater than or equal to 200 mg/dL meet the criteria for diagnosis of diabetes. Reference: Standards of Medical Care in Diabetes 2016, [place] Diabetes Association. Diabetes Care. 2016.39(Suppl 1). Performed By: #### 2 4323-8 #### [facility] IA [id number] [address] [place] [address] [place] Potassium [Moles/Vol] 3.9 mmol/L Normal 3.5-5.1 [facility] Comment on above: Order Comment: Speci men Type: BLOOD SPECIMEN Ordering Facility: [facility] Address: [address] [place] [address] Performed By: #### 2 4323-8 #### [facility] IA [id number] [address] [place] [address] [place] Protein [Mass/Vol] 6.5 g/dL Normal 6.3-8.0 [facility] Comment on above: Order Comment: Speci men Type: BLOOD SPECIMEN Ordering Facility: [facility] Address: [address] [place] [address] Performed By: #### 2 4323-8 #### [facility] IA [id number] [address] [place] [address] [place] Sodium [Moles/Vol] 136 mmol/L Normal 136-144 [facility] Comment on above: Order Comment: Speci men Type: BLOOD SPECIMEN Ordering Facility: [facility] Address: [address] [place] [address] Performed By: #### 2 4323-8 #### [facility] IA [id number] [address] [place] [address] [place] Urea nitrogen [Mass/Vol] 13 mg/dL Normal 7-25 [facility] Comment on above: Order Comment: Speci men Type: BLOOD SPECIMEN Ordering Facility: [facility] Address: [address] [address] Performed By: #### 2 4323-8 #### [facility] CLIA [id number] [address] [id number] [facility] No Panel Informationon 12-14 Radiology Result ACTIONABLE Abnormal [facility] CNOVon 12-07-2022 CNOV Normal [facility] CNPNon 12-05-2022 CNPN Normal [facility] CNOVon 12-02-2022 CNOV Normal [facility] CNOVSPon 12-02-2022 CNOVSP Normal [facility] CNPNon 11-29-2022 CNPN Normal [facility] ANES POSTPROC EVALon 023 ANES POSTPROC EVAL Normal [facility] ANES PRE-OPon 11-24-2022 ANES PRE-OP Normal [facility] CONFIRM BLOOD TYPEon 023 ABO O Normal [facility] Comment on above: Order Comment: Speci men Type: BLOOD SPECIMENOrdering Facility: [facility] Address: [address] [place] [address] Performed By: #### C ONABO ####[facility] BANKCLIA [id number] [place] [address] [place] Rh Nom (Bld) Positive Normal [facility] Comment on above: Order Comment: Speci men Type: BLOOD SPECIMENOrdering Facility: [facility] Address: [address] [address] Performed By: #### C ONABO ####[facility] MA[facility] BLOOD BANKCLIA [id number] [place] [address] [place] GENOMIC HEALTH ONCOTYPE DXon 11-24-2022 GENOMIC HEALTH ONCOTYPE DX RESULT Normal [facility] Comment on above: Order Comment: Speci men Type: TISSUE SPECIMENOrdering Facility: [facility] Address: [address] [place] [address] Result Comment: View results in Scanned Documents link when available. Performed By: #### G MELINA, S ####[facility] [id number] [address] [place] CARLOS ENRIQUE SURGICAL BREAST SPECIMEN LTon 11-24-2022 CARLOS ENRIQUE SURGICAL BREAST SPECIMEN LT Normal [facility] CARLOS ENRIQUE SURGICAL BREAST SPECIMEN RTon 11-24-2022 CARLOS ENRIQUE SURGICAL BREAST SPECIMEN RT Normal [facility] NURSING PROGon 11-24-2022 NURSING PROG Normal [facility] OPERATIVE NOon 11-24-2022 OPERATIVE NO Normal [facility] SURGICAL PATHOLOGYon 023 ADDENDUM 1: Normal [facility] Comment on above: Order Comment: Speci men Type: TISSUE SPECIMENOrdering Facility: [facility] Address: [address] [place] [address] Result Comment: G. A n immunohistochemical stain for cytokeratin AE1/3 is negative, supporting the diagnosis.Addendum electronically signed by Ting Marin MD on 12/01/2022 at 1:48 PM Performed By: #### G MELINA, S ####[facility] [id number] [address] [place] ADDENDUM 2: Normal [facility] Comment on above: Order Comment: Speci men Type: TISSUE SPECIMENOrdering Facility: [facility] Address: [address] [place] [address] Result Comment: C. A n immunohistochemical stain for cytokeratin AE1/3 highlights the tumor cells. There is no change of the diagnosis.Laboratory Developed Test (LDT) Disclaimer:Performance characteristics of immunohistochemical, immunofluorescent and chromogenic in-situ hybridization tests have been determined by the performing laboratory within [facility]???s [facility] [place] ([facility], [facility], [facility], [facility], [facility], or [facility]) in a manner consistent with CLIA requirements. One or more of these tests have not been cleared or approved by the FDA. [facility] is regulated under CLIA as qualified to perform high-complexity testing. These tests are used for clinical purposes. They should not be regarded as investigational or for research. Positive and negative controls stain appropriately.Addendum electronically signed by Ting Marin MD on 12/02/2022 at 3:48 PM Performed By: #### G MELINA S ####[facility] [id number] [place] [address] [place] CASE REPORT Normal [facility] Comment on above: Order Comment: Speci men Type: TISSUE SPECIMENOrdering Facility: [facility] Address: [address] [place] [address] Result Comment: Surg [facility] Pathology Report Case: [id number] Provider: Messi Manley MD Collected: 11/24/2022 12:48 PMOrdering Location: Admitting Received: 11/24/2022 02:13 PMPathologist: Ting Marin MDSpecimens: A) - SENTINEL LYMPH NODE RIGHT, #1 axillary sentinel lymph node hot and blue, palpable B) - BREAST MASTECTOMY LEFT, single short superior, single long lateral, nipple anterior C) - BREAST MASTECTOMY RIGHT, single short superior, single long lateral, nipple anterior D) - BREAST MARGIN RIGHT, new superior anterior lateral margin; ink and clip zoya new margin overlying tumor E) - SENTINEL LYMPH NODE RIGHT, #2 axillary sentinel lymph node hot and blue, palpable 7004 F) - SENTINEL LYMPH NODE RIGHT, #3 axillary sentinel lymph node hot and not blue, palpable 209 G) - SENTINEL LYMPH NODE LEFT, #1 left axillary sentinel lymph node hot and blue, 7692 H) - SENTINEL LYMPH NODE RIGHT, #4 axillary sentinel lymph node hot and blue, palpable 2475 I) - SENTINEL LYMPH NODE RIGHT, #5 axillary sentinel lymph node hot and not blue, palpable 158 J) - SENTINEL LYMPH NODE RIGHT, #6 axillary sentinel lymph node hot and not blue, palpable 183 K) - SENTINEL LYMPH NODE RIGHT, #7 axillary sentinel lymph node not hot and not blue, palpable Performed By: #### G MELINA, S ####[facility]IA [id number] [place] [address] [place] CLINICAL HISTORY Normal [facility] Comment on above: Order Comment: Speci men Type: TISSUE SPECIMENOrdering Facility: [facility] Address: [address] [address] Result Comment: Pre- op diagnosis:Malignant 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 in female, estrogen receptor positive (HCC) [C50.411, Z17.0] Performed By: #### G MELINA, S ####[facility] [id number] [address] DIAGNOSIS COMMENT Normal [facility] Comment on above: Order Comment: Comfort vigil Type: TISSUE SPECIMENOrdering Facility: [facility] Address: [address] [address] Result Comment: C an d D. Adjacent to the main mass, there are multiple small foci of invasive lobular carcinoma measuring 1-2 mm in greatest dimension. Superior radial margin is focally involved by invasive carcinoma (slide C7, spanning 1.5 mm), but additional superior margin is negative in part D.E and F: Immunohistochemical stains for cytokeratin AE1/3 highlight the carcinoma cells.Laboratory Developed Test (LDT) Disclaimer:Performance characteristics of immunohistochemical, immunofluorescent and chromogenic in-situ hybridization tests have been determined by the performing laboratory within [facility]???s Angel Cant[facility] Pathology and Laboratory Medicine [place] ([facility], [facility], [facility], [facility], [facility], or [facility]) in a manner consistent with CLIA requirements. One or more of these tests have not been cleared or approved by the FDA. [facility] is regulated under CLIA as qualified to perform high-complexity testing. These tests are used for clinical purposes. They should not be regarded as investigational or for research. Positive and negative controls stain appropriately. Performed By: #### G MELINA, S ####[facility] [id number] [address] FINAL DIAGNOSIS Normal [facility] Comment on above: Order Comment: Comfort vigil Type: TISSUE SPECIMENOrdering Facility: [facility] Address: [address] [address] Result Comment: A. R ight axillary sentinel lymph node, #1, excision:- Unremarkable fibroadipose tissue.B. Left breast, mastectomy:- Focal atypical ductal hyperplasia.- Focal atypical lobular hyperplasia.- Breast tissue with stromal fibrosis, microcysts, apocrine metaplasia, sclerosing adenosis, usual ductal hyperplasia and microcalcifications.- Biopsy site change and 1 biopsy clip identified.- Unremarkable nipple.C. Right breast, mastectomy:- Multiple foci of invasive lobular carcinoma with focal pleomorphic features, Alejandro grade 2, measuring 64 mm in greatest dimension (see synoptic report and comment)- Lobular carcinoma in situ/atypical lobular hyperplasia.- Biopsy site change and 1 biopsy clip identified.- Unremarkable skin.D. Right breast, new superior anterior lateral margin, excision:- Negative for carcinoma.E. Right axillary sentinel lymph node, #2, excision:- 1 lymph node with macrometastatic carcinoma (1/1)F. Right axillary sentinel lymph node, #3, excision:- 1 lymph node with micrometastatic carcinoma (1/1).G. Left axillary sentinel lymph node #1, excision:- 1 lymph node, negative for metastatic carcinoma (0/1).H. Right axillary sentinel lymph node, #4, excision:- Two lymph nodes, negative for metastatic carcinoma (0/2).I. Right sentinel lymph node, #5, excision:- 1 lymph node, negative for metastatic carcinoma (0/1).J. Right axillary sentinel lymph node, #6, excision:- 1 lymph node, negative for metastatic carcinoma (0/1).K. Right axillary sentinel lymph node, #7, excision:- 1 lymph node, negative for metastatic carcinoma (0/1). Performed By: #### G Janell SUMMERS ####[facility] LAB[facility]IA [id number] [facility] [id number] [address] [place] FINAL PERFORMING LAB Normal [facility] Comment on above: Order Comment: Speci men Type: TISSUE SPECIMENOrdering Facility: [facility] Address: [address] [place] [address] Result Comment: Diag nostic interpretation performed at [facility], [address] [address] CLIA# [id number] Director: Fran Booth M.D. Performed By: #### G Janell SUMMERS ####[facility] LAB[facility]IA [id number] [address] [id number] [address] [place] GROSS DESCRIPTION Normal [facility] Comment on above: Order Comment: Speci men Type: TISSUE SPECIMENOrdering Facility: [facility] Address: [address] [id number] Result Comment: Pat. Janell AKHTARNEL LYMPH NODE RIGHTGross in formalin labeled right axillary sentinel lymph node #1 hot and blue palpable is a segment of zhou, soft fibroadipose tissue measuring 2.2 x 1.67 x 0.6 cm. Palpation reveals 1 possible lymph node measuring 2 x 1.1 x 0.8 cm. Totally submitted as follows: A1 entire possible lymph node serially sectioned; A2 all remaining soft tissue.RSA November 25, 2022 9:08 AMB. BREAST MASTECTOMY LEFTReceived in formalin labeled breast mastectomy left is an oriented left total mastectomy specimen weighing 874.6 g and measuring 21.0 from superior to inferior by 21.5 cm from medial to lateral by 5.0 cm from anterior to posterior. The specimen is oriented per the requisition short suture menjivar the superior margin and a long suture menjivar the lateral margin. There are no segments of skeletal muscle. There is unremarkable excision of skin on the radial margin measuring 19.5 cm medial to lateral by 10.5 cm superior to inferior. The unremarkable nipple-areolar complex measures 3.5 cm in greatest diameter. The everted nipple measures 1.2 x 1.1 x 0.6 cm. The specimen is imaged to reveal an hourglass clip and a coil clip both located on the 1:00 axis. The superior radial margin is inked blue, the inferior radial margin is inked green, and the deep margin is inked black. The breast is serially sectioned to reveal two lesions:Lesion #1: Hemorrhagic cavity and surrounding irregular parenchyma with hourglass clip measuring (0.9 cm medial to lateral x 0.8 cm superior to inferior x 0.7 cm anterior to posterior). The lesion is situated at 1 o???clock 6.5 cm from nipple in the upper outer quadrant. This lesion is located 1.1 cm from the nearest superior radial margin, 3.2 cm from the deep margin, and 12 cm from the inferior radial margin.Lesion #2: Area of rubbery nodularity with coil clip measuring 0.8 cm medial to lateral x 0.7 cm superior to inferior x 0.7 cm anterior to posterior. The lesion is situated at 1 o???clock 2 cm from nipple) in the upper outer quadrant. This lesion is located 4.5 cm from lesion #1, 6.5 cm from the nearest superior radial margin, 5.5 cm from the deep margin, and 7.0 cm from the inferior radial margin.The breast tissue between lesion #1 and lesion #2 is unremarkable breast parenchyma. No distinctive mass is identified. The remaining breast parenchyma is soft adipose tissue with dense fibrous tissue (40%).The specimen was removed from the patient at 12:49 PM on 11/24/2022 and placed into formalin at 3:11PM on 11/24/2022.Library Consultant sections are submitted as follows:B1-B3. Lesion #1, hemorrhagic cavity, medial to lateral (B1-B2 nonmarginal; B3 hourglass clip site and superior radial margin)B4. Section immediately medial to lesion #1B5. Section immediately lateral to lesion #1B6. Tissue between Lesion #1 and Lesion #2B7-B9. Lesion #2, medial to lateral, non-marginal(B7 coil clip site)B10. Superior radial and deep margins, closest to Lesion #2B11. Section immediately medial to lesion #2B12. Section immediately lateral to lesion #2B13. Upper outer quadrant with deep margin nearest to lesion #1B14. Lower outer quadrant with inferior radial margin nearest to lesion #1 and lesion #2B15. Upper inner quadrant, non,yhnzrbviZ21. Lower inner quadrant, non-jpslwcmbZ90. Nipple, entirely submittedBZS 11/25/22 11:55 AMGross examination performed at [facility], [address] [place] [address] CLIA#[id number]. BREAST MASTECTOMY RIGHTReceived in formalin labeled as breast mastectomy right is an oriented mastectomy specimen measuring 23.5 (medial-lateral) x 21.5 (superior-inferior) x 4.5 cm (anterior-posterior), weighing 869.5 g. The specimen is oriented with a short stitch at the superior margin and long stitch at the lateral margin. The anterior aspect is partially surfaced by an elliptical segment of lightly pigmented, wrinkled unremarkable skin measuring 22.5 x 10.3 cm. The centrally located nipple is 1.2 x 1.1 cm, extending 1 cm above the skin surface. The specimen is x-rayed to reveal a HydroMARK butterfly clip. Sectioning reveals a zhou-pink, ill-defined, slightly stellate lesion located between 9:00 and 11:00 within the upper outer quadrant measuring 6.4 (superior-inferior) x 5.5 (medial-lateral) x 3 cm (anterior-posterior). Embedded within this lesion is a HydroMARK butterfly clip. This lesion is located 0.1 cm from the superior radial margin, 2.5 cm from the deep margin, 3 cm from the nipple, and 4.4 cm from the inferior radial margin. No other distinctive lesion is present.Library Consultant sections are submitted as follows:C1-C5 composite section of lesion submitted along the longest linear dimension (superior-inferior) nonmarginal;C6 lesion with HydroMARK clip site;C7-C8 lesion with closest superior radial margin;C9 closest deep margin;C10 most lateral aspect of lesion nonmarginal;C11 section immediately lateral to lesion nonmarginal;C12 most medial aspect of lesion nonmarginal;C13 section immediately medial to lesion nonmarginal;C14 section immediately superior to lesion superior radial;C15 section immediately inferior to lesion nonmarginal;C16 upper outer quadrant superior radial;C17 lower outer quadrant nonmarginal;C18 lower inner quadrant inferior radial;C19 upper inner quadrant superior radial;C20 entire nipple with skin trisected.The specimen is removed from the patient at 12:49 PM on 11/24/2022 and placed in formalin at 3:11 PM on 11/24/2022.RSA November 25, 2022 9:57 AMD. BREAST MARGIN RIGHTReceived in formalin labeled as right breast superior anterior lateral margin is a zhou, soft fibroadipose tissue fragment measuring 4 x 2.5 x 1.2 cm. Previous purple dye and cynthia are present in one aspect, designated as the new margin overlying tumor per the requisition. The new margin is inked black and the opposing aspect is inked blue. The specimen is sectioned and totally submitted in 3 cassettes.The specimen is removed from the patient at 12:51 PM on 11/24/2022 and placed in formalin at 3:11 PM on 11/24/2022.E. SENTINEL LYMPH NODE RIGHTReceived in formalin labeled as right axillary sentinel lymph node #2 hot and blue palpable 7004 is a zhou, firm possible lymph node with adherent soft fibroadipose tissue segment measuring 2.4 x 2 x 1.6 cm. The lymph node by itself is 2.3 x 1.7 x 1.4 cm. Totally submitted as follows: E1-E3 entire possible lymph node serially sectioned; E4 all remaining soft tissue.F. SENTINEL LYMPH NODE RIGHTReceived in formalin labeled as right axillary sentinel lymph node #3 hot and not blue, palpable 209 is a zhou, soft tissue segment measuring 3.5 x 3.2 x 0.8 cm. Palpation reveals 1 possible lymph node measuring 2.9 x 2.3 x 0.5 cm. Totally submitted as follows: F1-F2 entire possible lymph node serially sectioned; F3 all remaining soft tissue.G. SENTINEL LYMPH NODE LEFTReceived in formalin labeled as left axillary sentinel lymph node hot and blue, 7692 is a zhou, soft tissue segment measuring 4.8 x 3.7 x 1.8 cm. Palpation reveals 2 possible lymph nodes measuring 0.7 x 0.6 x 0.4 cm and 4.5 x 3.4 x 1.3 cm. Totally submitted as follows: G1-G12 entire larger possible lymph node serially sectioned; G13 smaller entire intact lymph node; G14 all remaining soft tissue.H. SENTINEL LYMPH NODE RIGHTReceived in formalin labeled as right axillary sentinel lymph node #4 hot and blue, palpable 2476 is a zhou, soft fibroadipose tissue segment measuring 3.2 x 2.4 x 1.2 cm. Palpation reveals 2 possible lymph nodes measuring 0.4 x 0.3 x 0.2 cm and 2.8 x 1.3 x 1.2 cm. Totally submitted as follows: H1 1 intact possible lymph nodes; H2 1 entire serially section possible lymph node; H3 all remaining soft tissue.I. SENTINEL LYMPH NODE RIGHTReceived in formalin labeled as right axillary sentinel lymph node #5 hot and not blue, palpable 158 is a zhou, soft fibroadipose tissue segment measuring 2.8 x 1.8 x 1 cm. Palpation reveals 1 possible lymph node measuring 2.3 x 1.3 x 0.9 cm. Totally submitted as follows: I1-I2 1 entire possible lymph node serially sectioned; I3 all remaining soft tissue.J. SENTINEL LYMPH NODE RIGHTReceived in formalin labeled as right axillary sentinel lymph node #6 hot and not blue, palpable 183 is a zhou, soft fibroadipose tissue segment measuring 2.5 x 2.2 x 1 cm. Some cynthia are present. Palpation reveals 1 possible lymph node measuring 2.5 x 1.8 x 0.8 cm. Totally submitted as follows: J1-J2 1 entire possible lymph node serially sectioned; J3 all remaining soft tissue.K. SENTINEL LYMPH NODE RIGHTReceived in formalin labeled as right axillary sentinel lymph node #7 not hot and not blue, palpable is a zhou, soft possible lymph node with adherent adipose tissue measuring 1.4 x 0.8 x 0.8 cm. The lymph node by itself is 0.8 x 0.8 x 0.6 cm. Totally submitted as follows: K1 bisected possible lymph node; K2 remaining soft tissue.Gross examination performed at [facility], [address] [place] [address] CLIA#[id number] November 25, 2022 11:16 AM Performed By: #### G [facility], [facility] ####[facility] LAB[facility]IA [id number] [place] [address] [place] SYNOPTIC REPORT Normal [facility] Comment on above: Order Comment: Speci men Type: TISSUE SPECIMENOrdering Facility: [facility] Address: [address] [place] [address] Result Comment: INVA SIVE CARCINOMA OF THE BREAST: ResectionINVASIVE CARCINOMA OF THE BREAST: EXCISION - All Xxyblmcyc7hv Edition - Protocol posted: 04/13/2022PECIMEN Procedure: Total mastectomy Specimen Laterality: RightTUMOR Tumor Site: Upper outer quadrant Histologic Type: Invasive lobular carcinoma Histologic Grade (Alejandro Histologic Score): Glandular (Acinar) / Tubular Differentiation: Score 3 Nuclear Pleomorphism: Score 2 Mitotic Rate: Score 1 Overall Grade: Grade 2 (scores of 6 or 7) Tumor Size: Greatest dimension of largest invasive focus (Millimeters): 64 mm Tumor Focality: Multiple foci of invasive carcinoma Number of Foci: At least: 3 Sizes of Individual Foci in Millimeters (mm): 64, 2, 1.5 Ductal Carcinoma In Situ (DCIS): Not identified Lymphatic and / or Vascular Invasion: Not identified Treatment Effect in the Breast: No known presurgical therapyMARGINS Margin Status for Invasive Carcinoma: All margins negative for invasive carcinoma Distance from Invasive Carcinoma to Closest Margin: Greater than: 12 mm Closest Margin(s) to Invasive Carcinoma: radial superior marginREGIONAL LYMPH NODES Regional Lymph Node Status: : Tumor present in regional lymph node(s) Number of Lymph Nodes with Macrometastases: 1 Number of Lymph Nodes with Micrometastases: 1 Size of Largest Alvaro Metastatic Deposit: 7 mm Extranodal Extension: Not identified Total Number of Lymph Nodes Examined (sentinel and non-sentinel): 7 Number of Vanleer Nodes Examined: 7pTNM CLASSIFICATION (AJCC 8th Edition) Reporting of pT, pN, and (when applicable) pM categories is based on information available to the pathologist at the time the report is issued. As per the AJCC (Chapter 1, 8th Ed.) it is the managing physician???s responsibility to establish the final pathologic stage based upon all pertinent information, including but potentially not limited to this pathology report. pT Category: pT3 T Suffix: (m) pN Category: [id number] STUDIES Estrogen Receptor (ER) Status: Positive (greater than 10% of cells demonstrate nuclear positivity) Percentage of Cells with Nuclear Positivity: 91-100% Progesterone Receptor (PgR) Status: Positive Percentage of Cells with Nuclear Positivity: 91-100% HER2 (by immunohistochemistry): Negative (Score 1+) Comment(s): Library Consultant blocks C1, C2 and C3 Performed By: #### G ENH, S ####[facility] LABCLIA [id number] [address] [place] TYPE + SCREENon 11-24-2022 ABO O Normal [facility] Comment on above: Order Comment: Speci men Type: BLOOD SPECIMENOrdering Facility: [facility] Address: [address] [place] [address] Performed By: #### T SCR ####[facility] BLOOD BANKCLIA [id number] [address] [place] HISTORICAL AB SCR STATUS Negative Normal [facility] Comment on above: Order Comment: Speci men Type: BLOOD SPECIMENOrdering Facility: [facility] Address: [address] [address] Performed By: #### T SCR ####CC [facility] BLOOD BANKCLIA [id number] [place] [address] [place] Rh Nom (Bld) Positive Normal [facility] Comment on above: Order Comment: Speci men Type: BLOOD SPECIMENOrdering Facility: [facility] Address: [address] [place] [address] Performed By: #### T SCR ####CC [facility] BLOOD BANKCLIA [id number] [place] [address] [place] TYPE AND SCREEN EXPIRATION 11/27/2022 23:59 Normal [facility] Comment on above: Order Comment: Speci men Type: BLOOD SPECIMENOrdering Facility: [facility] Address: [address] [place] [address] Performed By: #### T SCR ####CC [facility] BLOOD BANKCLIA [id number] [place] [address] [place] CNPNon 11-23-2022 CNPN Normal [facility] HISTORY PHYSICALon HISTORY PHYSICAL Normal [facility] NM INJ SENT NODE BREAST LTon 11-23-2022 NM INJ SENT NODE BREAST LT Normal [facility] NM INJ SENT NODE BREAST RTon 11-23-2022 NM INJ SENT NODE BREAST RT Normal [facility] CNPNon 11-14-2022 CNPN Normal [facility] CBC W Auto Differential pane l (Bld)on 10-31-2022 Basophils (Bld) [#/Vol] 0.03 10*3/uL Normal <0.11 [facility] Comment on above: Order Comment: Speci men Type: BLOOD SPECIMENOrdering Facility: [facility] Address: [address] [place] [address] Performed By: #### 5 7021-8 ####[facility] LABCLIA [id number] [address] [place] Basophils/100 WBC (Bld) 0.5 % Normal [facility] Comment on above: Order Comment: Speci men Type: BLOOD SPECIMENOrdering Facility: [facility] Address: [address] [place] [address] Performed By: #### 5 7021-8 ####[facility] LABCLIA [id number] [place] [address] [place] Differential cell count method Nom (Bld) Auto Normal [facility] Comment on above: Order Comment: Speci men Type: BLOOD SPECIMENOrdering Facility: [facility] Address: [address] [place] [address] Performed By: #### 5 7021-8 ####[facility] LABCLIA [id number] [place] [address] [place] Eosinophils (Bld) [#/Vol] 0.07 10*3/uL Normal <0.46 [facility] Comment on above: Order Comment: Speci men Type: BLOOD SPECIMENOrdering Facility: [facility] Address: [address] [place], [place] [address] Performed By: #### 5 7021-8 ####[facility] LABCLIA [id number] [address] [place] Eosinophils/100 WBC (Bld) 1.3 % Normal [facility] Comment on above: Order Comment: Speci men Type: BLOOD SPECIMENOrdering Facility: [facility] Address: [address] [place], [place] [address] Performed By: #### 5 7021-8 ####[facility] LABCLIA [id number] [place] [address] [place] Erythrocyte distribution width (RBC) [Ratio] 13.3 % Normal 11.5-15.0 [facility] Comment on above: Order Comment: Speci men Type: BLOOD SPECIMENOrdering Facility: [facility] Address: [address] Performed By: #### 5 7021-8 ####[facility] LABCLIA [id number] [address] [place] Hematocrit (Bld) [Volume fraction] 44.4 % Normal 36.0-46.0 [facility] Comment on above: Order Comment: Speci men Type: BLOOD SPECIMENOrdering Facility: [facility] Address: [address] Performed By: #### 5 7021-8 ####[facility] LABIA [id number] [place] [address] [place] Hemoglobin (Bld) [Mass/Vol] 14.5 g/dL Normal 11.5-15.5 [facility] Comment on above: Order Comment: Speci men Type: BLOOD SPECIMENOrdering Facility: [facility] Address: [address] [place], [place] [address] Performed By: #### 5 7021-8 ####[facility] LABIA [id number] [place] [address] [place] Immature granulocytes (Bld) [#/Vol] 10*3/uL Normal <0.10 [facility] Comment on above: Order Comment: Speci men Type: BLOOD SPECIMENOrdering Facility: [facility] Address: [address] Performed By: #### 5 7021-8 ####[facility] LABCLIA [id number] [place] [address] [place] Immature granulocytes/100 WBC (Bld) 0.4 % Normal [facility] Comment on above: Order Comment: Speci men Type: BLOOD SPECIMENOrdering Facility: [facility] Address: [address] Performed By: #### 5 7021-8 ####[facility] LABCLIA [id number] [address] [place] Lymphocytes (Bld) [#/Vol] 1.29 10*3/uL Normal 1.00-4.00 [facility] Comment on above: Order Comment: Speci men Type: BLOOD SPECIMENOrdering Facility: [facility] Address: [address] [place] [address] Performed By: #### 5 7021-8 ####[facility] LABIA [id number] [address] OF [facility] Lymphocytes/100 WBC (Bld) 23.5 % Normal [facility] Comment on above: Order Comment: Speci men Type: BLOOD SPECIMENOrdering Facility: [facility] Address: [address] [place] [address] Performed By: #### 5 7021-8 ####[facility] LABIA [id number] [address] [place] MCH (RBC) [Entitic mass] 28.7 pg Normal 26.0-34.0 [facility] Comment on above: Order Comment: Speci men Type: BLOOD SPECIMENOrdering Facility: [facility] Address: [address] [place], [place] [address] Performed By: #### 5 7021-8 ####[facility] LABIA [id number] [address] [place] MCHC (RBC) [Mass/Vol] 32.7 g/dL Normal 30.5-36.0 [facility] Comment on above: Order Comment: Speci men Type: BLOOD SPECIMENOrdering Facility: [facility] Address: [address] [place], [place] [address] Performed By: #### 5 7021-8 ####[facility] LABIA [id number] [address] [place] MCV (RBC) [Entitic vol] 87.9 fL Normal 80.0-100.0 [facility] Comment on above: Order Comment: Speci men Type: BLOOD SPECIMENOrdering Facility: [facility] Address: [address] Performed By: #### 5 7021-8 ####[facility] LABCLIA [id number] [place] [address] [place] Monocytes (Bld) [#/Vol] 0.55 10*3/uL Normal <0.87 [facility] Comment on above: Order Comment: Speci men Type: BLOOD SPECIMENOrdering Facility: [facility] Address: [address] Performed By: #### 5 7021-8 ####[facility] LABCLIA [id number] [place] [address] [place] Monocytes/100 WBC (Bld) 10.0 % Normal [facility] Comment on above: Order Comment: Speci men Type: BLOOD SPECIMENOrdering Facility: [facility] Address: [address] Performed By: #### 5 7021-8 ####[facility] LABCLIA [id number] [place] [address] [place] Neutrophils (Bld) [#/Vol] 3.52 10*3/uL Normal 1.45-7.50 [facility] Comment on above: Order Comment: Speci men Type: BLOOD SPECIMENOrdering Facility: [facility] Address: [address] [place] [address] Performed By: #### 5 7021-8 ####[facility] LABCLIA [id number] [place] [address] [place] Neutrophils/100 WBC (Bld) 64.3 % Normal [facility] Comment on above: Order Comment: Speci men Type: BLOOD SPECIMENOrdering Facility: [facility] Address: [address] Performed By: #### 5 7021-8 ####[facility] LABCLIA [id number] [place] [address] [place] Nucleated RBC (Bld) [#/Vol] 10*3/uL Normal <0.01 [facility] Comment on above: Order Comment: Speci men Type: BLOOD SPECIMENOrdering Facility: [facility] Address: [address] [place], [place] [address] Performed By: #### 5 7021-8 ####[facility] LABCLIA [id number] [place] [address] [place] Nucleated RBC/100 WBC (Bld) [Ratio] 0.0 /100 WBC Normal [facility] Comment on above: Order Comment: Speci men Type: BLOOD SPECIMENOrdering Facility: [facility] Address: [address] [place], [place] [address] Performed By: #### 5 7021-8 ####[facility] LABIA [id number] [place] [address] [place] Platelet mean volume (Bld) [Entitic vol] 9.3 fL Normal 9.0-12.7 [facility] Comment on above: Order Comment: Speci men Type: BLOOD SPECIMENOrdering Facility: [facility] Address: [address] [place] [address] Performed By: #### 5 7021-8 ####[facility] LABIA [id number] [place] [address] [place] Platelets (Bld) [#/Vol] 275 10*3/uL Normal 150-400 [facility] Comment on above: Order Comment: Speci men Type: BLOOD SPECIMENOrdering Facility: [facility] Address: [address] [place] [address] Performed By: #### 5 7021-8 ####[facility] LABCLIA [id number] [place] [address] [place] RBC (Bld) [#/Vol] 5.05 10*6/uL Normal 3.90-5.20 [facility] Comment on above: Order Comment: Speci men Type: BLOOD SPECIMENOrdering Facility: [facility] Address: [address] [place], [place] [address] Performed By: #### 5 7021-8 ####[facility] LABCLIA [id number] [place] [address] [place] WBC (Bld) [#/Vol] 5.48 10*3/uL Normal 3.70-11.00 [facility] Comment on above: Order Comment: Speci men Type: BLOOD SPECIMENOrdering Facility: [facility] Address: [address] [place], [place] [address] Performed By: #### 5 7021-8 ####[facility] LABCLIA [id number] [place] [address] [place] CNOVon 10-31-2022 CNOV Normal [facility] Comprehensive metabolic 2000 panelon 10-31-2022 Albumin [Mass/Vol] 4.7 g/dL Normal 3.9-4.9 [facility] Comment on above: Order Comment: Speci men Type: BLOOD SPECIMENOrdering Facility: [facility] Address: [address] [place], [place] [address] Performed By: #### 2 4323-8 ####[facility] LABCLIA [id number] [place] [address] [place] ALP [Catalytic activity/Vol] 75 U/L Normal 34-123 [facility] Comment on above: Order Comment: Speci men Type: BLOOD SPECIMENOrdering Facility: [facility] Address: [address] [place], [place] [address] Performed By: #### 2 4323-8 ####[facility] LABCLIA [id number] [place] [address] [place] ALT [Catalytic activity/Vol] 17 U/L Normal 7-38 [facility] Comment on above: Order Comment: Speci men Type: BLOOD SPECIMENOrdering Facility: [facility] Address: [address] [address] Performed By: #### 2 4323-8 ####[facility] LABCLIA [id number] [place] [address] [place] Anion gap [Moles/Vol] 11 mmol/L Normal 9-18 [facility] Comment on above: Order Comment: Speci men Type: BLOOD SPECIMENOrdering Facility: [facility] Address: [address] [address] Performed By: #### 2 4323-8 ####[facility] LABCLIA [id number] [place] [address] [place] AST [Catalytic activity/Vol] 19 U/L Normal 13-35 [facility] Comment on above: Order Comment: Speci men Type: BLOOD SPECIMENOrdering Facility: [facility] Address: [address] Performed By: #### 2 4323-8 ####[facility] LABCLIA [id number] [place] [address] [place] Bilirubin [Mass/Vol] 0.4 mg/dL Normal 0.2-1.3 [facility] Comment on above: Order Comment: Speci men Type: BLOOD SPECIMENOrdering Facility: [facility] Address: [address] Performed By: #### 2 4323-8 ####[facility] LABCLIA [id number] [place] [address] [place] Calcium [Mass/Vol] 10.4 mg/dL High 8.5-10.2 [facility] Comment on above: Order Comment: Speci men Type: BLOOD SPECIMENOrdering Facility: [facility] Address: [address] Performed By: #### 2 4323-8 ####[facility] LABCLIA [id number] [place] [address] [place] Chloride [Moles/Vol] 105 mmol/L Normal 97-105 [facility] Comment on above: Order Comment: Speci men Type: BLOOD SPECIMENOrdering Facility: [facility] Address: [address] [place] [address] Performed By: #### 2 4323-8 ####[facility] LABCLIA [id number] [place] [address] [place] CO2 [Moles/Vol] 27 mmol/L Normal 22-30 [facility] Comment on above: Order Comment: Speci men Type: BLOOD SPECIMENOrdering Facility: [facility] Address: [address] [place] [address] Performed By: #### 2 4323-8 ####[facility] LABCLIA [id number] [address] STATES OF [facility] Creatinine [Mass/Vol] 0.71 mg/dL Normal 0.58-0.96 [facility] Comment on above: Order Comment: Speci men Type: BLOOD SPECIMENOrdering Facility: [facility] Address: [address] [place] [address] Performed By: #### 2 4323-8 ####[facility] LABIA [id number] [address] OF [facility] ESTIMATED GLOMERULAR FILTRATION RATE 102 mL/min/1.73m??? Normal >=60 [facility] Comment on above: Order Comment: Speci men Type: BLOOD SPECIMENOrdering Facility: [facility] Address: [address] [place] [address] Result Comment: Ute mated Glomerular Filtration Rate (eGFR) is calculated using the 2020 CKD-EPI creatinine equation. This equation utilizes serum creatinine, sex, and age as parameters. The creatinine assay has traceable calibration to isotope dilution-mass spectrometry. Refer to KDIGO guidelines for clinical interpretation. In patients with unstable renal function, e.g. those with acute kidney injury, the eGFR may not accurately reflect actual GFR. Performed By: #### 2 4323-8 ####[facility] LABIA [id number] [place] [address] [place] Glucose [Mass/Vol] 90 mg/dL Normal 74-99 [facility] Comment on above: Order Comment: Speci men Type: BLOOD SPECIMENOrdering Facility: [facility] Address: [address] [place] [address] Result Comment: The [place] Diabetes Association (ADA) provides guidance for cutoff values for fasting glucose and random glucose. The ADA defines fasting as no caloric intake for at least 8 hours. Fasting plasma glucose results between 100 to 125 mg/dL indicate increased risk for diabetes (prediabetes).Fasting plasma glucose results greater than or equal to 126 mg/dL meet the criteria for diagnosis of diabetes. In the absence of unequivocal hyperglycemia, results should be confirmed by repeat testing. In a patient with classic symptoms of hyperglycemia or hyperglycemic crisis, random plasma glucose results greater than or equal to 200 mg/dL meet the criteria for diagnosis of diabetes.Reference: Standards of Medical Care in Diabetes 2016, [place] [employer]. Diabetes Care. 2016.39(Suppl 1). Performed By: #### 2 4323-8 ####[facility] LABIA [id number] [place] [address] [place] Potassium [Moles/Vol] 4.6 mmol/L Normal 3.7-5.1 [facility] Comment on above: Order Comment: Speci men Type: BLOOD SPECIMENOrdering Facility: [facility] Address: [address] [address] Performed By: #### 2 4323-8 ####[facility] LABIA [id number] [place] [address] [place] Protein [Mass/Vol] 7.2 g/dL Normal 6.3-8.0 [facility] Comment on above: Order Comment: Speci men Type: BLOOD SPECIMENOrdering Facility: [facility] Address: [address] [place] [address] Performed By: #### 2 4323-8 ####[facility] LABCLIA [id number] [place] [address] [place] Sodium [Moles/Vol] 143 mmol/L Normal 136-144 [facility] Comment on above: Order Comment: Comfort vigil Type: BLOOD SPECIMENOrdering Facility: [facility] Address: [address] [place] [address] Performed By: #### 2 4323-8 ####[facility] LABCLIA [id number] [address] [place] Urea nitrogen [Mass/Vol] 10 mg/dL Normal 7-21 [facility] Comment on above: Order Comment: Comfort vigil Type: BLOOD SPECIMENOrdering Facility: [facility] Address: [address] [place] [address] Performed By: #### 2 4323-8 ####[facility] LABCLIA [id number] [place] [address] [place] ECG COMPLETEon 10-31-2022 ECG COMPLETE Normal [facility] PT panel Coag (PPP)on 2022 INR Coag (PPP) [Relative time] 1.0 {INR} Normal 0.9-1.3 [facility] Comment on above: Order Comment: Comfort vigil Type: BLOOD SPECIMENOrdering Facility: [facility] Address: [address] [place] [address] Result Comment: Hannah min K Antagonist (VKA) Therapeutic Range: INR 2 to 3 (Target INR of 2.5)Note: For patients treated with VKA drugs, such as warfarin, the [place] [employer] 2012 Guideline recommends a therapeutic INR range of 2 to 3 (target INR of 2.5). This recommendation includes high-risk patients with antiphospholipid syndrome with previous arterial or venous thromboembolism, current-generation mechanical or bioprosthetic aortic heart valve replacement.Note: Patients with mechanical aortic valve replacement and additional risk factors for thromboembolic events (atrial fibrillation, previous thromboembolism, LV dysfunction, hypercoagulable conditions) or an older generation mechanical AVR (i.e., ball in-Cage) or any mechanical MVR should have a INR therapeutic range of 2.5 to 3.5 (target INR of 3).Pancho GH, et al. Chest 2012, 141:7S-47SNishimura RA, et al. [facility] 2017, 70: 252-289 Performed By: #### 3 4528-0, 88669-6 ####[facility] LABIA [id number] [place] [address] [place] PT Coag (PPP) [Time] 10.3 s Normal 9.7-13.0 [facility] Comment on above: Order Comment: Speci men Type: BLOOD SPECIMENOrdering Facility: [facility] Address: [address] [place] [address] Performed By: #### 3 4528-0, 87129-8 ####[facility] [id number] [address] [place] aPTT PPPon 10-31-2022 aPTT Coag (PPP) [Time] 35.3 s High 23.0-32.4 [facility] Comment on above: Order Comment: Speci men Type: BLOOD SPECIMENOrdering Facility: [facility] Address: [address] [place] [address] Performed By: #### 3 4528-0, 87675-6 ####[facility] [id number] [address] [place] CNPNon 10-25-2022 CNPN Normal [facility] CARLOS ENRIQUE DIAGNOSTIC LTon 10-22-19 CARLOS ENRIQUE DIAGNOSTIC LT Normal [facility] MRI BREAST BX WO/W IVCON LTo n 10-21-2022 MRI BREAST BX WO/W IVCON LT Normal [facility] No Panel Informationon 10-21 [facility] SURGICAL PATHOLOGYon 023 CASE REPORT Normal [facility] Comment on above: Order Comment: Speci men Type: TISSUE SPECIMENOrdering Facility: [facility] Address: [address] [place], [place] [address] Result Comment: Surg ical Pathology Report Case: [id number] Provider: Mercedes Frye MD Collected: 10/21/2022 01:30 PMOrdering Location: MRI A10 Received: 10/21/2022 04:42 PMPathologist: ETHAN Augustpecimen: BREAST CORE BIOPSY LEFT, MRI Left Breast BX: r/o ca; non-mass enhancement in the left breast at 1:00 Performed By: #### S ####[facility] LABCLIA [id number] [address] [place] DIAGNOSIS COMMENT Normal [facility] Comment on above: Order Comment: Speci men Type: TISSUE SPECIMENOrdering Facility: [facility] Address: [address] [place], [place] [address] Result Comment: The patient's history of right breast invasive lobular carcinoma and left breast intraductal papilloma is noted.Immunohistochemical studies for E-cadherin and [id number] show intact membranous expression in benign ducts, and immunohistochemical studies for p63 confirm the presence of intact myoepithelial cell layers surrounding benign ducts, supporting the rendered interpretation. This case was reviewed intradepartmentally with Dr. Ting Blackwell, of the [facility] breast pathology service, with diagnostic concordance.Laboratory Developed Test (LDT) Disclaimer:Performance characteristics of immunohistochemical, immunofluorescent and chromogenic in-situ hybridization tests have been determined by the performing laboratory within [facility]???s Angel Cantrell [facility] Pathology and Laboratory Medicine [place] ([facility], [facility], [facility], [facility], [facility], or [facility]) in a manner consistent with CLIA requirements. One or more of these tests have not been cleared or approved by the FDA. [facility] is regulated under CLIA as qualified to perform high-complexity testing. These tests are used for clinical purposes. They should not be regarded as investigational or for research. Positive and negative controls stain appropriately. Performed By: #### S ####[facility] LABCLIA [id number] [address] OF [facility] FINAL DIAGNOSIS Normal [facility] Comment on above: Order Comment: Speci men Type: TISSUE SPECIMENOrdering Facility: [facility] Address: [address] [place], [place] [id number] Result Comment: A: B reast, left, non-mass enhancement at 1:00, biopsy:- Mammary tissue with densely sclerotic fibrous stroma, cystically dilated ducts, sclerosing adenosis, usual ductal hyperplasia, pseudoangiomatous stromal hyperplasia, and microcalcifications.SIH/sih 10/24/2022 Performed By: #### S ####[facility] LABIA [id number] [address] FINAL PERFORMING LAB Normal [facility] Comment on above: Order Comment: Speci men Type: TISSUE SPECIMENOrdering Facility: [facility] Address: [address] [place] [address] Result Comment: Diag nostic interpretation performed at [facility], [address] [place] [address] CLIA# [id number] Director: Fran Booth M.D. Performed By: #### S ####[facility] LABIA [id number] [address] GROSS DESCRIPTION Normal [facility] Comment on above: Order Comment: Speci musa Type: TISSUE SPECIMENOrdering Facility: [facility] Address: [address] [place] [address] Result Comment: A. B REAST CORE BIOPSY LEFTReceived in formalin labeled as ``left breast? are multiple segments of cylindrical tissue aggregating to 2.5 x 1.5 x 0.4 cm, yellow-white and of a soft and rubbery consistency. The specimen was removed from the patient at 13: 30 on 10/21/2022. On the same day, the specimen was placed in formalin at 13: 32. Totally submitted in formalin in one cassette.AMS October 21, 2022 8:54 PMGross examination performed at [facility], [address] [place] [address] [place] [address] Performed By: #### S ####[facility] LABCLIA [id number] [place] [address] [place] CNCNPATEDon 10-20-2022 CNCNPATED Normal [facility] CNOVon 10-20-2022 CNOV Normal [facility] OUTSIDE SURG PATH SLIDE REVI EWon 10-20-2022 CASE REPORT Normal [facility] Comment on above: Order Comment: Speci men Type: SLIDEOrdering Facility: AP Outside Review Address: , , Result Comment: Surg ical Pathology Report Case: [id number] Provider: Messi Manley MD Collected: 10/20/2022 09:12 AMOrdering Location: [facility] Main Received: 10/20/2022 09:11 AMPathologist: ETHAN Kennedypecimen: SLIDE(S), 11 SLIDES ([id number]) Performed By: #### L [id number] ####[facility] LABCLIA [id number] [address] [place] FINAL DIAGNOSIS Normal [facility] Comment on above: Order Comment: Specmary vigil Type: SLIDEOrdering Facility: [facility] Outside Review Address: , , Result Comment: [facility] Department of pathology, [place], [place], [id number], 09/29/2022. Right breast, mass, 10:00, ultrasound-guided core biopsy:- Invasive lobular carcinoma with focal pleomorphic features, provisional histologic grade 2-3.- An E-cadherin immunochemical stain is negative supporting the diagnosis, outside slide reviewed.- Estrogen receptor is positive, 95%, outside slide reviewed.- Progesterone receptor is positive, 95%, outside slide reviewed.- HER2 by immunohistochemistry is negative, 1+, per outside report.B. Left breast, 7:00, nodule, ultrasound-guided core biopsy:- Intraductal papilloma with apocrine metaplasia. 10/20/2022 Performed By: #### L [id number] ####[facility] LABCLIA [id number] [place] [id number] [place] FINAL PERFORMING LAB Normal [facility] Comment on above: Order Comment: Speci men Type: SLIDEOrdering Facility: AP Outside Review Address: , , Result Comment: Diag nostic interpretation performed at [facility], [facility] [address] CLIA# [id number] Director: Fran Booth M.D. Performed By: #### L [id number] ####[facility] LABCLIA [id number] [place] [id number] [place] CNOVSPon 10-19-2022 CNOVSP Normal [facility] CNPNon 10-19-2022 CNPN Normal [facility] MRI BREAST WO/W IVCON BILon 10-19-2022 MRI BREAST WO/W IVCON DARRELL Normal [facility] MRI BREAST WO/W IVCON BILATE RALon 10-19-2022 [facility] CNPNon 10-07-2022 CNPN Normal [facility] MG MAMM SCREEN 3D DARRELL CADon 09-13-2022 MG MAMM SCREEN 3D DARRELL CAD Patient: CLIVE CARDOZA Exam Date: 09/13/2022 : 1970 Gender:F Ordering : DR NIMISHA RETANA M.D. Admission #: [id number] Family : Order #: [id number] CLICK HERE TO VIEW EXAM RADIOLOGY REPORT PROCEDURE: MAMMOGRAM SCREENING 3D BILATERAL CAD COMPARISON: MG MAMM SCREEN DARRELL W CAD, 04/15/2020. MG MAMM SCREEN 3D DARRELL CAD, 07/20/2021. INDICATIONS: Screening mammography Calculator Name NCI Breast Cancer Risk Assessment Tool 5 Year Breast Cancer Risk 0.90% Lifetime Breast Cancer Risk 6.80% Personal Breast Cancer No Personal Ovarian Cancer No Treatments None Family Cancers Grandfather-maternal with lung cancer at age 62; Grandfather-paternal with prostate cancer at age 85. LOCATION: [facility] BREAST COMPOSITION: Extremely dense, which lowers the sensitivity of mammography. FINDINGS: DIAGNOSTIC CATEGORY 0--INCOMPLETE: NEED ADDITIONAL IMAGING EVALUATION. Scattered benign-appearing nodules are present. Scattered benign-appearing calcifications are present. Scattered benign-appearing lymph nodes are present. RIGHT BREAST: Increase in architectural distortion upper quadrant, mid breast. Spot compression and ultrasound follow-up is recommended. LEFT BREAST: 2 focal nodules identified best seen on the CC projection, retroareolar, anterior breast. Spot imaging and ultrasound follow-up recommended. RECOMMENDATIONS: ADDITIONAL MAMMOGRAPHIC VIEWS REQUIRED: BILATERAL BREASTS - spot compression ULTRASOUND: BILATERAL BREASTS PLEASE NOTE: A NORMAL MAMMOGRAM DOES NOT EXCLUDE THE POSSIBILITY OF BREAST CANCER. A CLINICALLY SUSPICIOUS PALPABLE LUMP SHOULD BE BIOPSIED. Dictated by: Radha Lira MD on 09/13/2022 at 15:42 Approved by: Radha Lira MD on 09/13/2022 at 15:45 Normal [facility] XR Hip Complete Right*on XR Hip Complete Right* FINDINGS: Minimal left, mild to moderate right superior medial hip joint space loss. No pincer deformities. Small right CAM deformity. IMPRESSION: 1. Mild to moderate right hip osteoarthritis. Report reported and signed by Bertrand Forman on 07/14/2021 1531 Normal [facility] [employer] [address] Vital Signs Date Time Vital Sign Value Performing Clinician Facility 04-04-2023 12:52-0500 Body temperature 97.9 [degF] Laina Muller ASSET MANAGEMENT COORDINATOR.PROOF PLATE MAKER Work Phone: [facility] 04-04-2023 12:52-0500 Body weight 80.15 kg Laina Muller ASSET MANAGEMENT COORDINATOR.PROOF PLATE MAKER Work Phone: [facility] 04-04-2023 12:52-0500 Diastolic blood pressure 56 mm[Hg] Laina Carreller ASSET MANAGEMENT COORDINATOR.PROOF PLATE MAKER Work Phone: [facility] 04-04-2023 12:52-0500 Heart rate 90 /min Laina Carreller ASSET MANAGEMENT COORDINATOR.PROOF PLATE MAKER Work Phone: [facility] 04-04-2023 12:52-0500 Respiratory rate 20 /min Laina Muller ASSET MANAGEMENT COORDINATOR.PROOF PLATE MAKER Work Phone: [facility] 04-04-2023 12:52-0500 SaO2% (BldA) [Mass fraction] 99 % Laina Muller ASSET MANAGEMENT COORDINATOR.PROOF PLATE MAKER Work Phone: [facility] 04-04-2023 12:52-0500 Systolic blood pressure 120 mm[Hg] Laina Muller PROOF PLATE MAKER Work Phone: [facility] 02-15-2023 08:40-0400 Body weight 80.29 kg Trevin Calderón MD Work Phone: [facility] 02-13-2023 13:20-0400 Body temperature 97.5 [degF] Get Ryan MD Work Phone: [facility] 02-13-2023 13:20-0400 Body weight 80.06 kg Get Ryan MD Work Phone: [facility] 02-13-2023 13:20-0400 Diastolic blood pressure 72 mm[Hg] Get yRan MD Work Phone: [facility] 02-13-2023 13:20-0400 Heart rate 89 /min Get Ryan MD Work Phone: [facility] 02-13-2023 13:20-0400 Respiratory rate 20 /min Get Ryan MD Work Phone: [facility] 02-13-2023 13:20-0400 SaO2% (BldA) [Mass fraction] 99 % Get Ryan MD Work Phone: [facility] 02-13-2023 13:20-0400 Systolic blood pressure 131 mm[Hg] Get Ryan MD Work Phone: [facility] 02-08-2023 09:17-0400 Body weight 79.83 kg Trevin Calderón MD Work Phone: [facility] 01-16-2023 10:57-0400 Body weight 83.23 kg Nurse Main Work Phone: [facility] 01-16-2023 10:57-0400 Diastolic blood pressure 83 mm[Hg] Nurse Main Work Phone: [facility] 01-16-2023 10:57-0400 Heart rate 89 /min Nurse Main Work Phone: [facility] 09-18-2023 10:57-0400 Respiratory rate 16 /min Nurse Main Work Phone: [facility] 01-16-2023 10:57-0400 SaO2% (BldA) [Mass fraction] 97 % Nurse Main Work Phone: [facility] 01-16-2023 10:57-0400 Systolic blood pressure 138 mm[Hg] Nurse Main Work Phone: [facility] 12-19-2022 13:48-0400 Body height 167.6 cm Get Ryan MD Work Phone: [facility] 12-19-2022 13:48-0400 Body temperature 97 [degF] Get Ryan MD Work Phone: [facility] 12-19-2022 13:48-0400 Body weight 82.1 kg Get Ryan MD Work Phone: [facility] 12-19-2022 13:48-0400 Diastolic blood pressure 70 mm[Hg] Get Ryan MD Work Phone: [facility] 12-19-2022 13:48-0400 Heart rate 92 /min Get Ryan MD Work Phone: [facility] 12-19-2022 13:48-0400 Respiratory rate 16 /min Get Ryan MD Work Phone: [facility] 12-19-2022 13:48-0400 SaO2% (BldA) [Mass fraction] 99 % Get Ryan MD Work Phone: [facility] 12-19-2022 13:48-0400 Systolic blood pressure 129 mm[Hg] Get Ryan MD Work Phone: [facility] 12-07-2022 10:52-0400 Diastolic blood pressure 79 mm[Hg] Messi Manley MD Work Phone: [facility] 12-07-2022 10:52-0400 Heart rate 80 /min Messi Manley MD Work Phone: [facility] 12-07-2022 10:52-0400 Respiratory rate 18 /min Messi Manley MD Work Phone: [facility] 12-07-2022 10:52-0400 SaO2% (BldA) [Mass fraction] 99 % Messi Manley MD Work Phone: [facility] 12-07-2022 10:52-0400 Systolic blood pressure 144 mm[Hg] Messi Manley MD Work Phone: [facility] 12-02-2022 13:28-0400 Body weight 82.96 kg Messi Manley MD Work Phone: [facility] 12-02-2022 13:28-0400 Diastolic blood pressure 65 mm[Hg] Messi Manley MD Work Phone: [facility] 12-02-2022 13:28-0400 Heart rate 101 /min Messi Manley MD Work Phone: [facility] 12-02-2022 13:28-0400 Respiratory rate 20 /min Messi Manley MD Work Phone: [facility] 12-02-2022 13:28-0400 SaO2% (BldA) [Mass fraction] 99 % Messi Manley MD Work Phone: [facility] 12-02-2022 13:28-0400 Systolic blood pressure 130 mm[Hg] Messi Manley MD Work Phone: [facility] 11-15-2022 11:45-0400 Body height 170.81 cm Sasha Menjivar Other [employer] Other 11-15-2022 11:45-0400 Body mass index (BMI) [Ratio] 28.85 kg/m2 Sasha Menjivar Other [employer] Other 11-15-2022 11:45-0400 Body temperature 97.5 [degF] Sasha Menjivar Other [employer] Other 11-15-2022 11:45-0400 Body weight 84.19 kg Sasha Otto Other [employer] Other 11-15-2022 11:45-0400 Diastolic blood pressure 74 mm[Hg] Sasha Menjivar Other [employer] Other 11-15-2022 11:45-0400 Respiratory rate 18 /min Sasha Menjivar Other [employer] Other 11-15-2022 11:45-0400 SaO2% (BldA) [Mass fraction] 99 % Sasha Menjivar Other [employer] Other 11-15-2022 11:45-0400 Systolic blood pressure 118 mm[Hg] Sasha Otto Other [employer] Other 10-20-2022 13:08-0400 Body weight 85.32 kg Messi Manley MD Work Phone: [facility] 10-20-2022 13:08-0400 Diastolic blood pressure 65 mm[Hg] Messi Manley MD Work Phone: [facility] 10-20-2022 13:08-0400 Heart rate 77 /min Messi Manley MD Work Phone: [facility] 10-20-2022 13:08-0400 Respiratory rate 20 /min Messi Manley MD Work Phone: [facility] 10-20-2022 13:08-0400 SaO2% (BldA) [Mass fraction] 100 % Messi Manley MD Work Phone: [facility] 10-20-2022 13:08-0400 Systolic blood pressure 128 mm[Hg] Messi Manley MD Work Phone: [facility] 10-19-2022 13:27-0400 Body temperature 98.2 [degF] Get Ryan MD Work Phone: [facility] 10-19-2022 13:27-0400 Body weight 85.59 kg Get Ryan MD Work Phone: [facility] 10-19-2022 13:27-0400 Diastolic blood pressure 74 mm[Hg] Get Ryan MD Work Phone: [facility] 10-19-2022 13:27-0400 Heart rate 84 /min Get Ryan MD Work Phone: [facility] 10-19-2022 13:27-0400 Respiratory rate 20 /min Get Ryan MD Work Phone: [facility] 10-19-2022 13:27-0400 SaO2% (BldA) [Mass fraction] 100 % Get Ryan MD Work Phone: [facility] 10-19-2022 13:27-0400 Systolic blood pressure 139 mm[Hg] Get Ryan MD Work Phone: [facility] 10-19-2022 13:21-0400 Body height 168.5 cm Get Ryan MD Work Phone: [facility] Encounters Encounter Date Encounter Type Care Provider Facility Start: 06-19-2023 End: 06-19-2023 ambulatory [facility] Not Available Start: 06-09-2023 [facility] Result Encounter Generic External Data Provider [facility] External Department Unsolicited Start: 06-09-2023 [facility] Result Encounter Generic External Data Provider [facility] External Department Unsolicited Start: 06-09-2023 End: 06-10-2023 Orders Only Laina Muller APRN.PROOF PLATE MAKER Work Phone: Hematology/Oncology Comment on above: Aromatase inhibitor use (Primary Dx) Start: 05-26-2023 End: 05-26-2023 ambulatory GET RYAN Facility:[facility] Start: 05-11-2023 End: 05-12-2023 ambulatory NIMISHA RETANA Facility:[facility] Start: 04-28-2023 End: 04-28-2023 ambulatory NIMISHA RETANA Facility:[facility] Start: 04-20-2023 End: 04-20-2023 ambulatory LAURIE REYES Not Available Start: 04-17-2023 End: 04-17-2023 ambulatory [facility] Start: 04-14-2023 End: 04-14-2023 [facility] Facility:[facility] Start: 04-14-2023 Follow-up encounter Get Hernández MD Work Phone: Hematology/Oncology Comment on above: Aromatase inhibitor use (Primary Dx); H/O bilateral mastectomy; Encounter for routine cancer follow-up; Malignant neoplasm of right breast in female, estrogen receptor positive, unspecified site of breast (HCC) (HCC) Start: 04-14-2023 Telephone encounter Get Hernández MD Work Phone: Hematology/Oncology Comment on above: Ingot Caster - O ther Start: 04-04-2023 End: 04-05-2023 ambulatory [facility] Facility:[facility] Start: 04-04-2023 End: 04-05-2023 ambulatory Chair [address] [place] [address] Work Phone: Hematology/Oncology Comment on above: History of aromatase inhibitor therapy (Primary Dx); Invasive lobular carcinoma of breast in female (HCC) Start: 04-04-2023 End: 04-05-2023 [facility] Facility:[facility] Start: 04-04-2023 End: 04-05-2023 Follow-up encounter Laina Muller APRN.CNP Work Phone: Hematology/Oncology Comment on above: Encounter for routin e cancer follow-up (Primary Dx); Aromatase inhibitor use; H/O bilateral mastectomy; Malignant neoplasm of right breast in female, estrogen receptor positive, unspecified site of breast (HCC) Start: 04-04-2023 End: 04-05-2023 Patient encounter procedure Laina Muller APRN.CNP Work Phone: [facility] Start: 03-29-2023 End: 03-29-2023 ambulatory LAURIE REYES Not Available Start: 03-28-2023 Telephone encounter Get Hernández MD Work Phone: Hematology/Oncology Comment on above: Ingot Caster - O ther Start: 03-10-2023 End: 03-10-2023 ambulatory NIMISHA RETANA Facility:[facility] Start: 03-10-2023 End: 03-10-2023 Patient encounter procedure Messi Manley MD Work Phone: [facility] Comment on above: Malignant neoplasm o f overlapping sites of right breast in female, estrogen receptor positive (HCC) (Primary Dx) Start: 02-27-2023 Telephone encounter Angie de león RN Work Phone: Radiation Oncology Comment on above: Care Coordination (P ost Treatment Call) Start: 02-24-2023 Patient encounter procedure Trevin Calderón MD Work Phone: [facility] Start: 02-24-2023 Radiation Oncology Note Trevin Calderón MD Work Phone: Radiation Oncology Comment on above: Completion Note Start: 02-20-2023 End: 02-20-2023 [facility] Start: 02-17-2023 End: 02-17-2023 [facility] Start: 02-16-2023 End: 02-16-2023 ambulatory Edwin Watts MD Work Phone: Radiation Oncology Comment on above: Help schedule my jose m ghter Start: 02-15-2023 End: 02-15-2023 ambulatory Alma Khanna [facility] Comment on above: verzenio to [facility] Start: 02-15-2023 E-mail encounter jony m caregiver Alma Khanna [facility] Start: 02-15-2023 End: 02-15-2023 Patient encounter procedure Trevin Calderón MD Work Phone: Radiation Oncology Comment on above: Invasive lobular car cinoma of breast in female (HCC) (Primary Dx) Start: 02-14-2023 End: 02-14-2023 [facility] Start: 02-13-2023 End: 02-13-2023 ambulatory Get Ryan MD Work Phone: Hematology/Oncology Comment on above: Malignant neoplasm o f upper-outer quadrant of right breast in female, estrogen receptor positive (HCC) (Primary Dx) History of aromatase inhibitor therapy Oral Anti-cancer Age nt Education (Abemaciclib (Verzenio)) Start: 02-13-2023 End: 02-13-2023 Patient encounter procedure Get Ryan MD Work Phone: [facility] Comment on above: SPP Oral Oncology/he matology - Treatment Referral (Verzenio 150mg); Insurance Authorization ([place] Pending) Start: 02-10-2023 End: 02-10-2023 ambulatory RUGEN MABALAY MAZIN Facility:[facility] Start: 02-09-2023 End: 02-09-2023 ambulatory RUGEN MABALAY MAZIN Facility:[facility] Start: 02-08-2023 End: 02-08-2023 ambulatory RUGEN MABALAY MAZIN Facility:[facility] Start: 02-08-2023 End: 02-08-2023 Patient encounter procedure Trevin Calderón MD Work Phone: Radiation Oncology Comment on above: Invasive lobular car cinoma of breast in female (HCC) (Primary Dx) Start: 02-07-2023 End: 02-07-2023 ambulatory RUGEN MABALAY MAZIN Facility:[facility] Start: 02-06-2023 End: 02-06-2023 ambulatory RUGEN MABALAY MAZIN Facility:[facility] Start: 02-03-2023 End: 02-03-2023 ambulatory RUGEN MABALAY MAZIN Facility:[facility] Start: 02-02-2023 End: 02-02-2023 ambulatory RUGEN MABALAY MAZIN Facility:[facility] Start: 02-01-2023 End: 02-01-2023 ambulatory RUGEN MABALAY MAZIN Facility:[facility] Start: 01-31-2023 End: 01-31-2023 ambulatory RUGEN MABALAY MAZNI Facility:[facility] Start: 01-30-2023 End: 01-30-2023 ambulatory RUGEN MABALAY MAZIN Facility:[facility] Start: 01-23-2023 ambulatory Trevin Calderón MD Work Phone: Radiation Oncology Comment on above: FMLA Forms Start: 01-23-2023 E-mail encounter jony m caregiver Trevin Calderón MD Work Phone: [facility] Start: 01-23-2023 Telephone encounter Angie de león RN Work Phone: Radiation Oncology Comment on above: Care Coordination (F MLA Forms for Daughter) Start: 01-16-2023 End: 01-16-2023 Patient encounter procedure Trevin Calderón MD Work Phone: Radiation Oncology Comment on above: Invasive lobular car cinoma of breast in female (HCC) (Primary Dx) Start: 01-16-2023 Radiation Oncology Note Trevin Calderón MD Work Phone: Radiation Oncology Comment on above: Simulation Note Treatment Planning Start: 01-16-2023 End: 01-17-2023 [facility] Facility:[facility] Start: 01-16-2023 End: 01-16-2023 Nursing evaluation of patient and report Nurse Rusty Main Work Phone: Radiation Oncology Comment on above: Invasive lobular car cinoma of breast in female (HCC) (Primary Dx) Start: 01-06-2023 Orders Only Chris Granados i Therapist Radiation Oncology Comment on above: Invasive lobular car cinoma of breast in female (HCC) (Primary Dx) Start: 01-05-2023 End: 01-05-2023 ambulatory Kaley Barriga [facility] Work Phone: [facility] Comment on above: Malignant neoplasm o f overlapping sites of right breast in female, estrogen receptor positive (HCC) Start: 01-05-2023 End: 01-05-2023 Telemedicine consultation with patient Kaley Barriga [facility] Work Phone: [facility] Start: 01-05-2023 Telephone encounter Abhijeet Rinaldi [facility] HB-3 Start: 01-04-2023 End: 01-04-2023 ambulatory NIMISHA RETANA Facility:[facility] Start: 01-04-2023 End: 01-04-2023 ambulatory Get Ryan MD Work Phone: Hematology/Oncology Comment on above: Malignant neoplasm o f upper-outer quadrant of right breast in female, estrogen receptor positive (HCC) (Primary Dx) Start: 01-04-2023 End: 01-04-2023 Telemedicine consultation with patient Get Ryan MD Work Phone: [facility] Start: 12-23-2022 Telephone encounter Get Hernández MD Work Phone: Hematology/Oncology Comment on above: Ingot Caster - O ther (Need to know which block for patient has enough tissue to send for Oncotype) Start: 12-20-2022 Telephone encounter Messi Manley MD Work Phone: [facility] Comment on above: Letter (Return to [facility]) Start: 12-19-2022 End: 12-19-2022 Patient encounter procedure Get Ryan MD Work Phone: [facility] Start: 12-19-2022 Telephone encounter Get Hernández MD Work Phone: Hematology/Oncology Comment on above: Ingot Caster - O ther (Has oncotype results been received) Start: 12-19-2022 End: 12-19-2022 Subsequent hospital visit by physician [facility] Comment on above: Malignant neoplasm o f upper-outer quadrant of right breast in female, estrogen receptor positive (HCC) [C50.411, Z17.0] Start: 12-19-2022 End: 12-20-2022 ambulatory Get Ryan MD Work Phone: Hematology/Oncology Comment on above: Malignant neoplasm o f upper-outer quadrant of right breast in female, estrogen receptor positive (HCC) (Primary Dx) Start: 12-19-2022 End: 12-19-2022 Subsequent hospital visit by physician [facility] Start: 12-15-2022 ambulatory No Pcp ASSET MANAGEMENT COORDINATOR Marco Moore Start: 12-14-2022 End: 12-14-2022 ambulatory RUGEN MABALAY MAZIN Facility:[facility] Start: 12-14-2022 ambulatory GET Rocha [facility] Facility: [facility] Start: 12-14-2022 End: 12-14-2022 Subsequent hospital visit by physician [facility] Comment on above: Malignant neoplasm o f upper-outer quadrant of right breast in female, estrogen receptor positive (HCC) [C50.411, Z17.0] Start: 12-07-2022 End: 12-07-2022 ambulatory RUGEN BRITANYY MAZIN Facility:[facility] Start: 12-07-2022 End: 12-07-2022 Patient encounter procedure Messi Manley MD Work Phone: [facility] Comment on above: Malignant neoplasm o f overlapping sites of right breast in female, estrogen receptor positive (HCC) (Primary Dx) Start: 12-05-2022 Telephone encounter Lana de la rosa RN Work Phone: Hematology/Oncology Comment on above: Ingot Caster - O ther (Oncotype) Start: 12-02-2022 End: 12-03-2022 Orders Only Messi Manley MD Work Phone: [facility] Comment on above: Malignant neoplasm o f overlapping sites of right breast in female, estrogen receptor positive (HCC) (Primary Dx) Malignant neoplasm o f upper-outer quadrant of right breast in female, estrogen receptor positive (HCC) (Primary Dx) Start: 11-29-2022 Telephone encounter Vinh munroe RN Work Phone: [facility] Comment on above: Returning Patient's Call Start: 11-25-2022 End: 11-25-2022 ambulatory RUGEN BRITANYY MAZIN Facility:[facility] Start: 11-24-2022 End: 11-25-2022 ambulatory MESSI MANLEY Facility:[facility] Start: 11-23-2022 End: 11-24-2022 ambulatory RUGEN BRITANYY MAZIN Facility:[facility] Start: 11-16-2022 End: 11-17-2022 ambulatory RUGEN JORDYNFROYLANY MAZIN Facility:[facility] Start: 11-16-2022 End: 11-16-2022 ambulatory Messi Manley MD Work Phone: [facility] Comment on above: Malignant neoplasm o f overlapping sites of right breast in female, estrogen receptor positive (HCC) (Primary Dx) Start: 11-16-2022 End: 11-16-2022 Telemedicine consultation with patient Messi Manley MD Work Phone: [facility] Start: 11-15-2022 End: 11-15-2022 ambulatory Sasha Menjivar Other [employer] Other Start: 11-15-2022 Office outpatient vi sit 15 minutes Sasha Menjivar [facility] [place] Start: 11-14-2022 Telephone encounter Robert Reno MD Work Phone: Plastic Surgery Comment on above: FMLA - Dr. Reno FMLA (Spouse) - Dr. Reno Start: 10-31-2022 Encounter for other preprocedural examination RUGZULAY MAZIN [facility] Start: 10-31-2022 End: 11-01-2022 ambulatory NIMISHA RETANA Facility:[facility] Start: 10-31-2022 Chart abstracting Robert ferrera MD Work Phone: Plastic Surgery Comment on above: PHOTOS TAKEN Start: 10-28-2022 End: 10-29-2022 Orders Only Messi Manley MD Work Phone: Hematology/Oncology Comment on above: Malignant neoplasm o f female breast, unspecified estrogen receptor status, unspecified laterality, unspecified site of breast (HCC) (Primary Dx); Malignant 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 in female, estrogen receptor positive (HCC); Complex sclerosing lesion of left breast Start: 10-25-2022 Telephone encounter Ivon Rankin RN Mammography Comment on above: Results Start: 10-21-2022 ambulatory Get Ryan MD Work Phone: Hematology/Oncology Comment on above: Neoadjuvant therapy? Notes from 10/19 visi t - Error? Start: 10-21-2022 End: 10-21-2022 Subsequent hospital visit by physician Mri Main A10 (Large Bore/1.5t) Work Phone: MRI A10 Comment on above: Abnormal MRI, breast [R92.8] Start: 10-20-2022 End: 10-21-2022 ambulatory Vinh Stauffer RN Work Phone: Hematology/Oncology Comment on above: Pre-Op Teaching Start: 10-20-2022 End: 10-20-2022 Patient encounter procedure Messi Manley MD Work Phone: [facility] Comment on above: Malignant neoplasm o f overlapping sites of right breast in female, estrogen receptor positive (HCC) (Primary Dx) Malignant neoplasm o f upper-outer quadrant of right breast in female, estrogen receptor positive (HCC) (Primary Dx); Malignant neoplasm of right female breast, unspecified estrogen receptor status, unspecified site of breast (HCC); Pre-op testing Start: 10-20-2022 Patient encounter status Shen Manley MD Work Phone: Hematology/Oncology Start: 10-19-2022 End: 10-19-2022 Orders Only Messi Manley MD Work Phone: [facility] Comment on above: Malignant neoplasm o f right female breast, unspecified estrogen receptor status, unspecified site of breast (HCC) (Primary Dx) Abnormal MRI, breast (Primary Dx) Patient Update Malignant neoplasm o f upper-outer quadrant of right breast in female, estrogen receptor positive (HCC) (Primary Dx) Malignant neoplasm o f right breast in female, estrogen receptor positive, unspecified site of breast (HCC) [C50.911, Z17.0] Start: 10-18-2022 Orders Only Messi Manley MD Work Phone: [facility] Comment on above: Malignant neoplasm o f right breast in female, estrogen receptor positive, unspecified site of breast (HCC) (Primary Dx) Start: 09-13-2022 End: 09-14-[address] NIMISHA RETANA Facility:[facility] Procedures Date Procedure Procedure Detail Performing Clinician Start: 06-09-2023 [facility] CBC W AUTO DIFF BLD Generic External Data Provider Start: 04-20-2023 History of radiation therapy History of radiation therapy Generic Provider Start: 12-14-2022 Ct abdomen & pelvis w/contrast material Get Ryan MD Work Phone: Start: 12-14-2022 Ct thorax w/contrast material Get Ryan MD Work Phone: Start: 11-24-2022 History of bilateral mastectomy S/P bilateral mastectomy Vinh Stauffer RN Work Phone: Start: 11-24-2022 Antibody screen NIMISHA REES Comment on above: Order Comment: Speci men Type: BLOOD SPECIMENOrdering Facility: [facility] Address: [address] [place] [address] Performed By: #### T SCR ####CC MAIN BLOOD BANKCLIA [id number] [address] Start: 10-21-2022 Diagnostic mammograp hy computer-aided detcj uni Milagros Su MD Work Phone: Start: 10-21-2022 Bx breast w/device 1 st lesion magnetic res guid Milagros Su MD Work Phone: Start: 10-19-2022 Mri breast without&w ith contrast w/cad bilateral Messi Manley MD Work Phone: Start: 10-18-2022 Lipid 1996 panel - S shannon or Plasma Nurse Main Work Phone: Start: 10-08-2022 H/O: hysterectomy History of hysterectomy Generic Provider Start: 09-13-2022 Mammography Robert ferrera MD Work Phone: Start: 10-02-2018 H/O: hysterectomy History of hysterectomy Vinh Stauffer RN Work Phone: History of bilateral mastectomy H/O bilateral mastectomy Laina Muller ASSET MANAGEMENT COORDINATOR.PROOF PLATE MAKER Work Phone: History of bilateral mastectomy H/O bilateral mastectomy Get Ryan MD Work Phone: Plan of Treatment Date Care Activity Detail Author Start: 07-31-2031 Urine microalbumin profile DTaP,Tdap,Td Vaccine (2 - Td or Tdap) [facility] Start: 10-19-2027 Lipid 1996 panel - S shannon or Plasma Lipid Screening [facility] Start: 10-19-2027 Lipid panel Lipid Screening [facility] Start: 10-19-2027 LIPID SCREEN LIPID SCREEN [facility] Start: 06-09-2026 Diabetes Screening Diabetes Screenin g [facility] Start: 04-14-2026 Diabetes Screening Diabetes Screenin g [facility] Start: 04-04-2026 Diabetes Screening Diabetes Screenin g [facility] Start: 12-14-2025 [facility] Start: 12-14-2025 Diabetes Screening Diabetes Screenin g [facility] Start: 10-31-2025 DIABETES SCREEN DIABETES SCREEN [facility] Start: 10-29-2023 Influenza vaccination Influenza Vacc ine (#1) [facility] Comment on above: Postponed from 12/30 (Other Patient Reasons) Start: 09-14-2023 Mammography [facility] Start: 09-14-2023 Screening for malign ant neoplasm of breast Mammogram Screening [facility] Start: 06-19-2023 End: 06-19-2023 Patient encounter procedure 06/19/2023 8:50 AM EST Office Visit [facility] [address] [place] [phone] [place], [place] [address] [place] [address] [facility] Start: 05-31-2023 Screening for malign ant neoplasm of colon [facility] Start: 03-27-2023 End: 05-27-2023 CBC W Auto Differential panel - Blood ABS GRAN CT + CBC Lab Routine Malignant 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 in female, estrogen receptor positive (HCC) Expected: 03/27/2023 (Approximate), Expires: 05/27/2023 [facility] Work Phone: Comment on above: Expected: 03/27/2023 (Approximate), Expires: 05/27/2023 Start: 03-27-2023 End: 05-27-2023 Comprehensive metabolic 2000 panel - Serum or Plasma COMP METABOLIC PANEL Lab Routine Malignant 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 in female, estrogen receptor positive (HCC) Expected: 03/27/2023 (Approximate), Expires: 05/27/2023 [facility] Work Phone: Comment on above: Expected: 03/27/2023 (Approximate), Expires: 05/27/2023 Start: 12-30-2022 Covid-19 Vaccine () Covid-19 Vaccine () [facility] Start: 12-30-2022 Influenza vaccination [facility] Start: 12-16-2022 End: 02-15-2023 CBC W Auto Differential panel - Blood ABS GRAN CT + CBC Lab Routine Malignant 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 in female, estrogen receptor positive (HCC) Expected: 12/16/2022 (Approximate), Expires: 02/15/2023 [facility] Work Phone: Comment on above: Expected: 12/16/2022 (Approximate), Expires: 02/15/2023 Start: 12-16-2022 End: 02-15-2023 Comprehensive metabolic 2000 panel - Serum or Plasma COMP METABOLIC PANEL Lab Routine Malignant 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 in female, estrogen receptor positive (HCC) Expected: 12/16/2022 (Approximate), Expires: 02/15/2023 [facility] Work Phone: Comment on above: Expected: 12/16/2022 (Approximate), Expires: 02/15/2023 Start: 12-09-2022 End: 01-01-2024 Bone &/joint imaging whole body NM BONE WHOLE BODY Radiology Routine Malignant 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 in female, estrogen receptor positive (HCC) Expected: 12/09/2022 (Approximate), Expires: 01/01/2024 [facility] Work Phone: Comment on above: Expected: 12/09/2022 (Approximate), Expires: 01/01/2024 Start: 12-09-2022 End: 01-01-2024 Ct abdomen & pelvis w/contrast material CT ABD/PEL W IVCON Radiology Routine Malignant 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 in female, estrogen receptor positive (HCC) Expected: 12/09/2022 (Approximate), Expires: 01/01/2024 [facility] Work Phone: Comment on above: Expected: 12/09/2022 (Approximate), Expires: 01/01/2024 Start: 12-09-2022 End: 01-01-2024 CT CHEST W IVCON CT CHEST W IVCON Radiology Routine Malignant 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 in female, estrogen receptor positive (HCC) Expected: 12/09/2022 (Approximate), Expires: 01/01/2024 [facility] Work Phone: Comment on above: Expected: 12/09/2022 (Approximate), Expires: 01/01/2024 Start: 10-20-2022 End: 12-20-2022 aPTT in Platelet poor plasma by Coagulation assay ACTIVATED PTT Lab Routine Pre-op testing Expected: 10/20/2022 (Approximate), Expires: 12/20/2022 [facility] Work Phone: Comment on above: Expected: 10/20/2022 (Approximate), Expires: 12/20/2022 Start: 10-20-2022 End: 12-20-2022 CBC W Auto Differential panel - Blood CBC + DIFF Lab Routine Pre-op testing Expected: 10/20/2022 (Approximate), Expires: 12/20/2022 [facility] Work Phone: Comment on above: Expected: 10/20/2022 (Approximate), Expires: 12/20/2022 Start: 10-20-2022 End: 12-20-2022 Comprehensive metabolic 2000 panel - Serum or Plasma COMP METABOLIC PANEL Lab Routine Pre-op testing Expected: 10/20/2022 (Approximate), Expires: 12/20/2022 [facility] Work Phone: Comment on above: Expected: 10/20/2022 (Approximate), Expires: 12/20/2022 Start: 10-20-2022 End: 12-20-2022 PT panel - Platelet poor plasma by Coagulation assay PROTHROMBIN TIME/PT Lab Routine Pre-op testing Expected: 10/20/2022 (Approximate), Expires: 12/20/2022 [facility] Work Phone: Comment on above: Expected: 10/20/2022 (Approximate), Expires: 12/20/2022 Start: 05-01-2022 DEPRESSION ASSESSMENT DEPRESSION ASS ESSMENT [facility] Start: 03-04-2022 Hepatitis B Vaccine (2 of 3 - Hep B Twinrix 3-dose series) Hepatitis B Vaccine (2 of 3 - Hep B Twinrix 3-dose series) [facility] Start: 01-26-2022 COVID-19 VACCINE (5 - Booster for Moderna series) COVID-19 VACCINE (5 - Booster for Moderna series) [facility] Start: 01-26-2022 COVID-19 VACCINE (5 - Moderna series) COVID-19 VACCINE (5 - Moderna series) [facility] Start: 2018 SHINGRIX VACCINE (1 of 2) SHINGRIX VACCINE (1 of 2) [facility] Start: 2013 COLOGUARD (FIT-DNA) COLOGUARD (FIT-D NA) [facility] Start: 2013 Colonoscopy COLONOSCOPY [facility] Start: 2013 COLORECTAL CANCER SCREENING COLORECTAL CANCER SCREENING [facility] Start: [address] COLONOGRAPHY [facility] Start: 2013 DIABETES SCREEN DIABETES SCREEN [facility] Start: 2013 FECAL OCCULT BLOOD FECAL OCCULT BLOO D [facility] Start: 2013 LIPID SCREEN LIPID SCREEN [facility] Start: 2013 Screening for malign ant neoplasm of colon [facility] Start: 2013 SIGMOIDOSCOPY SIGMOIDOSCOPY [facility] Start: 2008 Mammography MAMMOGRAM [facility] Start: 1998 HPV TESTING HPV TESTING [facility] Start: 1998 Screening for malign ant neoplasm of cervix HPV Testing [facility] Start: 1989 PAP TESTING PAP TESTING [facility] Start: 1989 Screening for malign ant neoplasm of cervix Pap Testing [facility] Start: 11-22-1987 Urine microalbumin profile [facility] Start: 1986 HEPATITIS C SCREENING HEPATITIS C [facility] Start: 1986 Hepatitis C screening Hepatitis C [facility] Start: 1986 HIV SCREENING HIV SCREENING [facility] Start: 1986 HIV screening HIV Screening [facility] Start: 05-24-1969 COVID-19 VACCINE (#1) COVID-19 VACCI NE (#1) [facility] Start: 1968 HEPATITIS B (1 of 3 - 3-dose series) HEPATITIS B (1 of 3 - 3-dose series) [facility] Start: 1968 Hepatitis B Vaccine (1 of 3 - 3-dose series) Hepatitis B Vaccine (1 of 3 - 3-dose series) [facility] Start: 1968 Screening for malign ant neoplasm of colon [facility] rcnstj immt/dly d w/tiss cigar maker sbsq xpnsj BREAST RECONSTRUC W TISS EXPANDR Procedures Routine Malignant 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 in female, estrogen receptor positive (HCC) Malignant neoplasm of right female breast, unspecified estrogen receptor status, unspecified site of breast (HCC) Ordered: 10/20/2022 [facility] Work Phone: Comment on above: Ordered: 10/20/2022 Bx/exc lymph node op en deep axillary node BX/REMV,LYMPH NODE,DEEP AXILL Procedures Routine Malignant 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 in female, estrogen receptor positive (HCC) Malignant neoplasm of right female breast, unspecified estrogen receptor status, unspecified site of breast (HCC) Ordered: 10/20/2022 [facility] Work Phone: Comment on above: Ordered: 10/20/2022 End: 04-13-2024 CBC W Auto Differential panel - Blood ABS GRAN CT + CBC Lab Routine Aromatase inhibitor use H/O bilateral mastectomy Encounter for routine cancer follow-up Malignant neoplasm of right breast in female, estrogen receptor positive, unspecified site of breast (HCC) Every other week for 4 Occurrences starting 04/14/2023 until 04/13/2024, 1 completed [facility] Work Phone: Comment on above: Every other week for 4 Occurrences starting 04/14/2023 until 04/13/2024, 1 completed End: 04-13-2024 Comprehensive metabolic 2000 panel - Serum or Plasma COMP METABOLIC PANEL Lab Routine Aromatase inhibitor use H/O bilateral mastectomy Encounter for routine cancer follow-up Malignant neoplasm of right breast in female, estrogen receptor positive, unspecified site of breast (HCC) Every other week for 4 Occurrences starting 04/14/2023 until 04/13/2024, 1 completed [facility] Work Phone: Comment on above: Every other week for 4 Occurrences starting 04/14/2023 until 04/13/2024, [address] SIM PLANNING RADIATION ONCOLOGY CT SIM PLANNING RADIATION ONCOLOGY Radiology Routine Invasive lobular carcinoma of breast in female (HCC) Ordered: 01/06/2023 [facility] Work Phone: Comment on above: Ordered: 01/06/2023 End: 05-03-2024 DXA-FOREARM SKELETON DXA-FOREARM SKELETON Radiology Routine Aromatase inhibitor use 1 Occurrences starting 04/04/2023 until 05/03/2024 [facility] Work Phone: Comment on above: 1 Occurrences starti ng 04/04/2023 until 05/03/2024 End: 10-21-2023 ECG COMPLETE ECG COMPLETE ECG Routine Pre-op testing 1 Occurrences starting 10/20/2022 until 10/21/2023 [facility] Work Phone: Comment on above: 1 Occurrences starti ng 10/20/2022 until 10/21/2023 Inj radioactive trac er for id of sentinel node IDENTIFY SENTINEL NODE Procedures Routine Malignant 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 in female, estrogen receptor positive (HCC) Malignant neoplasm of right female breast, unspecified estrogen receptor status, unspecified site of breast (HCC) Ordered: 10/20/2022 [facility] Work Phone: Comment on above: Ordered: 10/20/2022 End: 11-18-2023 CARLOS ENRIQUE DIAGNOSTIC RIGHT CARLOS ENRIQUE DIAGNOSTIC RIGHT Radiology Routine Malignant neoplasm of right female breast, unspecified estrogen receptor status, unspecified site of breast (HCC) 1 Occurrences starting 10/19/2022 until 11/18/2023 [facility] Work Phone: Comment on above: 1 Occurrences starti ng 10/19/2022 until 11/18/2023 Mastectomy simple complete MASTECTOMY, SIMPLE, COMPLETE Procedures Routine Malignant 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 in female, estrogen receptor positive (HCC) Malignant neoplasm of right female breast, unspecified estrogen receptor status, unspecified site of breast (HCC) Ordered: 10/20/2022 [facility] Work Phone: Comment on above: Ordered: 10/20/2022 End: 11-18-2023 MRI BREAST BX WO/W IVCON LEFT MRI BREAST BX WO/W IVCON LEFT Radiology Routine Abnormal MRI, breast 1 Occurrences starting 10/19/2022 until 11/18/2023 [facility] Work Phone: Comment on above: 1 Occurrences starti ng 10/19/2022 until 11/18/2023 End: 11-17-2023 MRI BREAST WO/W IVCON BILATERAL MRI BREAST WO/W IVCON BILATERAL Radiology Routine Malignant neoplasm of right breast in female, estrogen receptor positive, unspecified site of breast (HCC) 1 Occurrences starting 10/18/2022 until 11/17/2023 [facility] Work Phone: Comment on above: 1 Occurrences starti ng 10/18/2022 until 11/17/2023 End: 11-27-2023 NM INJ SENTINEL NODE BREAST LEFT NM INJ SENTINEL NODE BREAST LEFT Radiology Routine Malignant neoplasm of female breast, unspecified estrogen receptor status, unspecified laterality, unspecified site of breast (HCC) Malignant 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 in female, estrogen receptor positive (HCC) Complex sclerosing lesion of left breast 1 Occurrences starting 10/28/2022 until 11/27/2023 [facility] Work Phone: Comment on above: 1 Occurrences starti ng 10/28/2022 until 11/27/2023 End: 11-19-2023 NM INJ SENTINEL NODE BREAST RIGHT NM INJ SENTINEL NODE BREAST RIGHT Radiology Routine Malignant 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 in female, estrogen receptor positive (HCC) Malignant neoplasm of right female breast, unspecified estrogen receptor status, unspecified site of breast (HCC) Pre-op testing 1 Occurrences starting 10/20/2022 until 11/19/2023 [facility] Work Phone: Comment on above: 1 Occurrences starti ng 10/20/2022 until 11/19/2023 PT ED GENERAL SURGERY PT ED GENE RAL SURGERY Other 10/20/2022 [facility] Work Phone: PT ED PLASTIC SURGERY PT ED PLAS TIC SURGERY Other 10/20/2022 [facility] Work Phone: PT ED WOMEN'S HEALTH PT ED WOMEN [facility] HEALTH Other 10/20/2022 [facility] Work Phone: End: 05-13-2024 Radiologic exam chest 2 views XR CHEST 2V FRONTAL/LAT Radiology Routine Aromatase inhibitor use H/O bilateral mastectomy Encounter for routine cancer follow-up Malignant neoplasm of right breast in female, estrogen receptor positive, unspecified site of breast (HCC) 1 Occurrences starting 04/14/2023 until 05/13/2024 [facility] Work Phone: Comment on above: 1 Occurrences starti ng 04/14/2023 until 05/13/2024 SURGICAL PATHOLOGY [facility] Work Phone: Comment on above: Release Upon Orderin g for 1 Occurrences starting 10/21/2022, 1 completed SWAB COLLECTION SPECIMEN SWAB CO LLECTION SPECIMEN Lab Routine Malignant neoplasm of overlapping sites of right breast in female, estrogen receptor positive (HCC) Ordered: 01/05/2023 [facility] Work Phone: Comment on above: Ordered: 01/05/2023 End: 11-18-2023 US AXILLA ONLY RIGHT US AXILLA ONLY RIGHT Radiology Routine Malignant neoplasm of right female breast, unspecified estrogen receptor status, unspecified site of breast (HCC) 1 Occurrences starting 10/19/2022 until 11/18/2023 [facility] Work Phone: Comment on above: 1 Occurrences starti ng 10/19/2022 until 11/18/[address] [facility] Immunizations Immunization Date Immunization Notes Care Provider Shaq justiceisabell 02-04-2022 hepatitis A and hepa titis B vaccine Generic Provider [facility] 02-04-2022 Seasonal, quadrivale nt, recombinant, injectable influenza vaccine, preservative free Generic Provider [facility] 02-04-2022 influenza virus vacc ine, unspecified formulation Nurse Main Work Phone: [facility] 07-30-2021 pneumococcal polysaccharide vaccine, 23 valent Generic [facility] 07-30-2021 tetanus toxoid, redu steven diphtheria toxoid, and acellular pertussis vaccine, adsorbed Generic Provider [facility] 03-28-2021 Influenza, injectabl e, Madin [place]ine Kidney, preservative free, quadrivalent Generic Provider [facility] 12-31-2019 influenza, injectabl e, quadrivalent, preservative free Generic Provider [facility] 04-06-2019 Seasonal, quadrivale nt, recombinant, injectable influenza vaccine, preservative free Generic Provider [facility] 02-12-2015 influenza, seasonal, injectable, preservative free Generic Provider [facility] 02-16-2009 influenza virus vacc ine, whole virus Generic Provider [facility] Healthcare Payers Date Payer Category Payer Unknown [id number] 1968 Unknown [id number] 1968 Unknown [id number] 1968 Unknown [id number] 1968 Unknown [id number] 1959 Unknown [id number] Social History Date Type Detail Facility Start: 10-07-2022 End: 04-18-2023 Tobacco smoking status NHIS Ex-smoker [facility] Work Phone: Start: 05-01-1983 End: 05-01-1999 History of tobacco use Current smoker [facility] Work Phone: Start: 05-01-1983 End: 05-01-1999 History of tobacco use Cigarette Smoker [facility] Work Phone: Start: 10-07-2022 End: 03-29-2023 Cigarettes smoked current (pack per day) - Reported 0.3 [facility] Start: 1970 Sex Assigned At Not on file [facility] Start: 10-19-2022 End: 04-18-2023 Tobacco use and exposure Smokeless tobacco non-user [facility] Start: 10-31-2022 End: 03-29-2023 Tobacco use panel [facility] National Score (1-10 0), lower number is lower risk 62 [facility] Start: 11-23-2022 End: 02-15-2023 Alcohol intake Not Asked [facility] Start: 11-23-2022 Alcohol Comment occ [facility] Start: 1970 Sex Assigned At Female [facility] Start: 10-10-2022 Gender identity Identifies as female gender (finding) [facility] Start: 10-10-2022 Sexual orientation Heterosexual (finding) [facility] Start: 04-20-2023 Alcohol intake Ex-drinker (finding) [facility] Within the last year , have you been afraid of your partner or ex-partner? No [facility] Do you belong to any clubs or organizations such as jewish groups, unions, fraternal or athletic groups, or school groups? Yes [facility] Are you now , , , , never or living with a partner? [facility] How often to you hav e a drink containing alcohol? Never [facility] How hard is it for y ou to pay for the very basics like food, housing, medical care, and heating Somewhat hard [facility] Do you feel stress - tense, restless, nervous, or anxious, or unable to sleep at night because your mind is troubled all the time - these days [OSQ] Very much [facility] (I/We) worried whe er (my/our) food would run out before (I/we) got money to buy more. Never true [facility] Start: 10-10-2022 Alcohol Comment Caffeine intake: 1-2 cups per day of coffee [facility] Medical Equipment Procedure Code Equipment Code Equipment Origin al Text Equipment Identifier Dates Mri [employer]glass Br donna Clip [id number] Start: 10-21-2022 Clinical Notes 10-19-2022 to 04-17-2023 Telephone Encounter - Lana Koehler RN - 04/14/2023 5:37 PM ESTTelephone Encounter - Lana Spencer - 04/14/2023 8:09 AM Laina Holley APRN.PROOF PLATE MAKER - 04/04/2023 1:30 PM EST Note Date & Type Note Facility 04-17-2023 Note [facility] 04-14-2023 Miscellaneous Notes Pt reports mild SOB with exertion which recovers with rest. 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 Advised she try to make sure she is drinking plenty of fluids. Reviewed with earlier today. Order for labs and x-ray placed. Pt will go to [facility] for tests. Advised her to call our office Monday afternoon if she does not hear from us. Understanding verbalized. Clive Cardoza('s) is calling Riya Ryan MD today regarding Ingot Caster - Other Patient has been identified by name and birthdate. Patient called stated she has been S.O.B for several day would like a call back Requesting response back: [phone] (home) [phone] (cell) Lana Spencer April 14, 2023 documented in this encounter [facility] 04-04-2023 Note [facility] 04-04-2023 History of Present illness Narrative ATTENDING PHYSICIAN: Dr. 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 REASON FOR VISIT / CHIEF COMPLAINT: Survivorship visit and routine 6 week follow up SURVIVORSHIP VISIT: April 04, 2023 CURRENT SYSTEMIC THERAPY FOR BREAST CANCER: ~ Anastrozole 1 mg daily with intent of completing a minimum of 5 years of the same (until September 2027) ~ Zoledronic acid every 6 months to complete 3 years of therapy (April 04, 2023 is cycle #1 of 6) ~ Abemaciclib 150 mg twice daily PAST THERAPY FOR BREAST CANCER: ~ Bilateral mastectomy with bilateral sentinel node biopsy (November 24, 2022, largest mass 64 mm (with at least 2 other foci measuring about 1 - 2 mm, 2 of 8 nodes positive (right), focal atypical ductal hyperplasia with unremarkable fibroadipose tissue in the sentinel node on the left) ~ Radiation therapy (January 31 - 2022, Dr. Calderón, right chest wall and regional nodes, 4005 cGy) ~ Anastrozole (September - October 2022, January 2023 - present) ~ Abemaciclib (March 20, 2023 - present) INTERVAL HISTORY: Pt presents today by herself. She reports that she is taking her Anastrozole 1 mg daily and Abemaciclib twice dailyas prescribed with minimal difficulty. Updates / Concerns noted at time of today's visit are as follows: 1) taking prilosec for heartburn which is keeping things in check, but not eliminating symptoms, will increase to twice daily and notify our office should symptoms not improve 2) has some soreness in the abdomen and intermittent nausea but denies any vomiting 3) denies any diarrhea 4) mild headaches at times, denies any diplopia, feels that she is staying well hydrated, denies needing anything for the same, hasn't had for the last couple of days 5) lower back pain, present prior to the verzenio, improved with exercises and denies any concerns regarding the same 6) interested in physical therapy for bone health exercise guidance She otherwise reports that she physically feels well and is without any new concerns or discomforts that would be suggestive of recurrent or metastatic disease. She specifically denies any concerning cough, shortness of breath, localized bone pain. REVIEW OF SYSTEMS: The remainder of the review of systems is unremarkable. PERSONAL MEDICAL / SURGICAL HISTORY: Personal medical / surgical history reviewed SIGNIFICANT (CANCER) FAMILY MEDICAL HISTORY: Maternal grandfather with lung cancer Paternal grandfather with prostate cancer Paternal aunt with gastric cancer Paternal uncle with bone cancer Paternal cousin with jaw cancer Maternal cousin with breast cancer Was a referral made to medical genetics? Custom Cancer Panel through [employer] was negative for a pathogenic variant PHYSICAL EXAMINATION: General appearance: well appearing, alert, in no acute distress Skin: Skin color, texture, turgor normal, no rashes or lesions Head: unremarkable Neck: Supple, no adenopathy Lungs: lungs clear to auscultation, no wheezing or rhonchi Heart: Negative, RRR Abdomen: Normal abdominal exam, Abdomen soft, non-tender. No masses, organomegaly Extremities:Extremities normal. No deformities or edema Breasts: Bilateral chest wall exam reveals mastectomy without reconstruction, there is no axillary adenopathy, concerning skin changes or palpable lesions LABS/IMAGING: Lab results from today, April 04, 2023 have been reviewed and are as follows Component Latest Ref Rng & Units 04/04/2023 Protein, Total 6.3 - 8.0 g/dL 7.1 Albumin 3.9 - 4.9 g/dL 4.4 Calcium 8.5 - 10.2 mg/dL 10.1 Bilirubin, Total 0.2 - 1.3 mg/dL 0.3 Alkaline Phosphatase 34 - 123 U/L 93 AST 13 - 35 U/L 16 ALT 7 - 38 U/L 29 Glucose 74 - 99 mg/dL 80 BUN 7 - 21 mg/dL 11 Creatinine 0.58 - 0.96 mg/dL 0.76 Sodium 136 - 144 mmol/L 141 Potassium 3.7 - 5.1 mmol/L 3.9 Chloride 97 - 105 mmol/L 104 CO2 22 - 30 mmol/L 28 Anion Gap 9 - 18 mmol/L 9 eGFR >=60 mL/min/1.73m 93 WBC 3.70 - 11.00 k/uL 4.28 RBC 3.90 - 5.20 m/uL 4.62 Hemoglobin 11.5 - 15.5 g/dL 13.4 Hematocrit 36.0 - 46.0 % 41.0 MCV 80.0 - 100.0 fL 88.7 MCH 26.0 - 34.0 pg 29.0 MCHC 30.5 - 36.0 g/dL 32.7 RDW-CV 11.5 - 15.0 % 13.1 Platelet Count 150 - 400 k/uL 264 MPV 9.0 - 12.7 fL 8.5 (L) Abs Neut (ANC) 1.45 - 7.50 k/uL 3.23 IMMATURE GRANS (ABS) <0.10 k/uL <0.03 Absolute nRBC <0.01 k/uL <0.01 Breast imaging no longer indicated secondary to bilateral mastectomy Bone density (not yet on file): SURVIVORSHIP DISCUSSION: Patient's medical, surgical and family history were reviewed and verified. Her summary of previous treatment, as well as her follow up care plan and issues of survivorship have been reviewed and discussed. The importance of continued adherence with her Anastrozole was discussed. Potential barriers, including side effects, were discussed and she was encouraged to call prior to any potential unplanned discontinuation of the same. An opportunity to ask any questions and address concerns was provided. A copy of her treatment summary, breast cancer survivorship follow up plan of care, as well as what symptoms to notify our office for was provided to the patient (see patient instruction section of the clinic visit documentation). HEALTHY LIFESTYLE DISCUSSION: She is a former smoker but has quit on her own. She has been encouraged to minimize alcohol intake to less than one drink daily (4-5 drinks weekly). Information on the importance of calcium, vitamin d and weight bearing exercise on improving and maintaining bone health was discussed. We have discussed the importance of exercise and I have specifically encouraged a minimum of 30 minutes most days of the week (150 minutes weekly). 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 PLAN: After evaluation and review of the ongoing treatment plan, the following referral/recommendations have been made. (Z08) Encounter for routine cancer follow-up (primary encounter diagnosis) (Z79.811) Aromatase inhibitor use Plan: CONSULT TO PHYSICAL THERAPY, DXA-FOREARM SKELETON (Z90.13) H/O bilateral mastectomy Plan: CONSULT TO MASSAGE THERAPY (V51.491, Z17.0) Malignant neoplasm of right breast in female, estrogen receptor positive, unspecified site of breast (HCC) - Active listening and support provided - All questions / concerns addressed to patients satisfaction - Continue with active therapy in the adjuvant setting for breast cancer: ~ Anastrozole 1 mg daily with intent of completing a minimum of 5 years of the same (until September 2027) ~ Zoledronic acid every 6 months to complete 3 years of therapy (April 04, 2023 is cycle #1 of 6) - We discussed the benefits / risks and alternatives to zoledronic acid for bone health as well as the potential for the medication to decrease the risk of recurrent breast cancer. After said discussion, pt is in agreement with proceeding with these recommendations and verifies that she has seen dentistry recently and has been cleared to proceed with the bisphosphonate therapy as planned. ~ Abemaciclib 150 mg twice daily (March 20, 2023 - present) - Encouraged ongoing monthly breast self exams - Regular exercise (greater then 30 minutes most days of the week / 150 minutes weekly) -She did not have any physical concerns or discomforts related to her breast cancer or treatments at the time of today's visit. - Breast imaging no longer indicated - Bone density due every 2 years, next due: NOW, will schedule with follow up - ASCO recommendations for breast cancer follow up have been reviewed and I have provided her with a written copy of the same - Follow up with PCP for routine health maintenance - Virtual visit in 1 and 2 months to assess tolerance to the abemaciclib with labs, follow up in 3 months for in-person visit, anticipate seeing Dr. Ryan or documentation writer back at that time She has been encouraged to call with any additional questions/concerns in the interim. Understanding verbalized. I spent a total of 45 minutes on the date of the service which included preparing to see the patient, [id number] patient care, completing clinical documentation, obtaining and/or reviewing separately obtained history, performing a medically appropriate examination, counseling and educating the patient/family/caregiver, ordering medications, tests, or procedures, and communicating results to the patient/family/caregiver. Laina Muller APRN.PROOF PLATE MAKER cc: Nimisha Retana MD, MD documented in this encounter [facility] 04-04-2023 Instructions Laina Muller APRN.CATHRYN - 04/04/2023 1:03 PM EST Clive Cardoza Date of : 1970 Treatment Summary and Follow-Up Care Plan This treatment summary and care plan summarizes information about your diagnosis, past treatment, recommendations for follow-up care, and steps you can take to stay healthy. This is not a complete patient history comprehensive record of intended therapies. This is NOT meant to be a substitution for future visits with your health care team, but rather a review of the major aspects of your breast cancer treatment and overall care plan of how to take care of yourself going forward. Prepared by: Laina Muller APRN.PROOF PLATE MAKER Date provided to the patient: April 04, 2023 Treatment Summary All care provided within the [facility] unless otherwise indicated Care Team Medical Oncologist: Dr. Marianna Ryan ([phone]) Oncology Ingot Caster: Lana Koehler RN ([phone]) Radiation Oncologist: Dr. Trevin Calderón ([phone]) Radiation oncology Ingot Caster: Angie Turpin ([phone]) Surgeon: Dr. Messi Manley ([phone]) Primary Care Physician: Nimisha Retana MD, MD Significant family medical history (related to cancer): Maternal grandfather with lung cancer Paternal grandfather with prostate cancer Paternal aunt with gastric cancer Paternal uncle with bone cancer Paternal cousin with jaw cancer Maternal cousin with breast cancer Was a referral made to medical genetics? Custom Cancer Panel through [employer] was negative for a pathogenic variant Diagnosis Information Diagnosis: Right breast cancer Approximate date of diagnosis: September 2022 Age at diagnosis: 51 Stage of disease at diagnosis: [id number] Anatomic stage: IIIA Prognostic stage (with recommended treatments): IB Additional biopsy on the left was notable for intraductal papilloma with apocrine metaplasia; surgical diagnosis of focal atypical ductal hyperplasia with unremarkable fibroadipose tissue in the sentinel node Imaging done at time of diagnosis: Staging CT chest/abdomen/pelvis was negative other than possible bone islands and bone scan showed only changes of DJD Surgery Date of procedure: November 24, 2022 Type of procedure: Bilateral mastectomy and bilateral sentinel node biopsies Tumor information (pathology): Tumor type: Infiltrating lobular carcinoma, grade 2, with pleomorphic lobular carcinoma in situ Tumor size: Pathological: Multifocal, largest mass was 64 mm, with at least 2 other foci measuring 1 to 2 mm Alvaro status: Pathologic: 2 of 8 nodes Estrogen receptor status: Positive Progesterone receptor status: Positive Her2 doris status: Negative Oncotype DX recurrence score: 23 Chemotherapy / targeted IV therapy: Not indicated Radiation Therapy Dates of treatment: January 31, 2023 through February 20, 2023 Area treated: Right chest wall and regional nodes Delivered dose: 4005 cGy in 15 fx Endocrine Therapy: Name of treatment: Anastrozole 1 mg daily Date initiated: October 25, 2022, took for a month, held at time of surgery and restarted in January after radiation Other Therapy: Name of treatment: Abemaciclib Date initiated: March 20, 2023 Name of treatment: Zoledronic acid (reclast / zometa) Date initiated: April 04, 2023; if dental work / clearance is completed Follow-up Care Plan Need for ongoing adjuvant treatment: Name of treatment: Anastrozole 1 mg daily Initiated: SeptemberOctober 2022, January 2023 Planned duration of therapy: At least 5 years Potential side effects: Hot flashes, vaginal dryness, bone/joint aches/pain, potential for decreased bone density Name of treatment: Abemaciclib (Verzenio) Initiated: March 20, 2023 Planned duration of therapy: 2 years Potential side effects: Nausea, vomiting, abdominal cramping, diarrhea, low counts Name of treatment: Zoledronic acid (reclast / zometa) Initiated: April 04, 2023; if dental work is complete Planned duration of therapy: Every 6 months for 3 years Potential side effects: Rare but potential osteonecrosis of the jaw (notify dentist of anticipated use of medication, particularly if planned teeth extractions / root canals) Follow up item How often Who s responsible When next due Breast self-exam Monthly Patient Monthly Clinical breast exams Years from diagnosis Oncology Team (okay to alternate with oncology providers) Virtual in 1 and 2 months to assess tolerance and labs In-person June [address] Ryan 0-3 Every 3 - 6 months 3-5 Every 6 months Beyond 5 Annually Breast imaging (Mammogram unless otherwise indicated) No longer indicated secondary to bilateral mastectomy without reconstruction Medical or surgical oncology As needed Bone density (if on aromatase inhibitor or older than 65 years old) Every 2 years Last done: Not yet on file Medical oncology (while on endocrine therapy) To be scheduled with next follow-up Please continue all other routine health care follow up with your Primary Care Provider or store detective (including but not limited to colonoscopy, cholesterol screening, blood pressure, pap/pelvic exams). Any new, unusual, and/or persistent symptoms should be brought to the attention of your providers. (refer to ASCO guidelines for breast cancer follow up) Important Life Style Habits to Consider/Continue: Continue to NOT smoke Keep alcohol consumption to a minimum (recommended < 1 drink daily for females) Eat low fat, nutritious meals Exercise (recommendations are to exercise at least 30 minutes most days of the week or 150 minutes of moderate exercise weekly) Additional topics of interest: Let us know if we can connect you with those resources.Many cancer survivors have experienced issues / concerns in these areas. If you are having any of these concerns or concerns not listed, please speak to your medical oncologist or primary care physician: Lymphedema / Breast Rehab Emotional or Mental Health Parenting Work/Employment Financial Issues Insurance Heart health / Cardio-oncology Resources for emotional support: With a diagnosis of cancer, it is normal to have feelings of the cancer recurring or feeling alone after all of the acute treatment has ended. Should you need additional support, there are several other resources available to you. [facility] - Juan Oakley ([phone]) or Nadia Dickerson ([phone]) [facility] [phone] Potential chcf or late effects of your treatment: Surgery / radiation Lymphedema is a condition in which swelling can occur in the affected extremity where lymph nodes were removed. If you develop any swelling, redness or warmth in the affected extremity, please contact your medical team for further evaluation. Scar tissue is a common side effect of surgery (or radiation) and can present as a hardened area or an area of the breast that is more sensitive to touch or palpation (but is typically not discolored). If you are feeling either of these sensations for the first time, please contact your medical team for further evaluation, as not all symptoms are benign. Radiation The most common side effect seen following breast radiation are changes to the skin of the breast which can lead to darkening or lightening of the skin of the breast. You may notice firmness in the breast, particularly around the scar area. Although rare, your recommended treatment can increase risk of secondary cancers. Angiosarcoma is a secondary cancer that can occur as a result of breast radiation, any rash, increase in redness (after the initial healing) or change in the skin of the area radiated should be evaluated. At times a condition called radiation pneumonitis/pulmonary fibrosis can occur, this condition may occur years after radiation has been given, and can be accompanied by a cough. Even in the absence of a cough, sometimes radiographic studies (ex: chest xray) may show some lung changes. Discuss concerns with your provider with either of these develop Endocrine therapy: (Anastrazole 1 mg daily) Bone loss, such as osteopenia or osteoporosis, can occur as a result of the oral endocrine therapy (i.e. anastrozole, letrozole, exesmestane). Ways to maintain or improve bone health include, but are not limited to, weight bearing activity, vitamin d supplementation and appropriate calcium in your diet. Bone loss is not something that you typically can feel, so your health care provider may recommend bone density testing every 2 years while you are on the recommended treatment. This can be done either through your primary care physician or your oncologist, discuss with your oncologist which is preferred. If you have concerns regarding these risks, please discuss with your oncology provider BEFORE any unplanned discontinuation of the medication as often times the benefits far outweigh the risks of the therapy being recommended. documented in this encounter [facility] 04-04-2023 Nurse Note Additional intake questions: Has the patient had fever, nausea, vomiting, diarrhea, constipation, fatigue for > 1 week? No Does the patient have a decreased appetite? No Does patient want to see a Truck Despatcher? No (yes to any of above refer patient to schedulers for dietitian appointment) ) Does patient have any new or increased numbness or tingling of extremities? No Is patient interested in fertility information? No Does patient need any prescription refills? No Does patient have an advanced directive in place? No documented in this encounter [facility] 03-28-2023 Miscellaneous Notes Clive Cardoza('s) is calling Riya Ryan MD today regarding Ingot Caster - Other Patient has been identified by name and birthdate. Patient called stated she has had ear pain for 3 days would like a call back Requesting response back: [phone] (home) [phone] (cell) Lana Spencer March 28, 2023 documented in this encounter [facility] 03-10-2023 Note [facility] 03-10-2023 History of Present illness Narrative FOLLOW UP HPI: Clive Cardoza is a 51 year old female with a history of long covid, depression, anxiety. Family history of breast cancer in [facility] (dx in her early 50s), no family hx of ovarian cancer. She presented for an evaluation of a new right breast 10:00 at least 2.4 cm int-poor diff invasive lobular ca with LCIS, ER+ (>95%), WV+ (>95%), HER2- (1+). Innumerable masses throughout the right breast. There is additional Lt breast 2.5 cm NME suspicious for malignancy. No axillary or internal mammary LAD noted on MRI. Biopsy of the Lt breast returned PASH, sclerotic fibrous stroma, sclerosing adenosis, DISCORDANT. She is now s/p b/l TM wo recon, b/l SLNB on 11/24/22. Final path showing Rt breast pT3N1a, superior radial margin focal 1.5 mm ILC but additional submitted superior/anterior margin overlying tumor was negative for carcinoma. pT3N1a. 1 SLN w/macromets, 1 SLN micromets, 5 SLN neg ca (/). No carcinoma in the Lt breast and 0/1 Lt axlilary SLN. Ms. Cardoza underwent adjuvant XRT per Dr. Calderón which was completed from 01/31-02/20/23. She was recently initiated on anastrozole and will begin abemaciclib on 03/[address] Ryan. She presents for 3 month follow up. She feels she is recovering very well and is exercising daily. She has returned to work as well. She reports the lateral left mastectomy incision has begun to form a keloid. She also has occasional sharp pain of the distal right mastectomy incision and notes there is a point at the end of this incision which sometimes rubs on her arm and bothers her. PAST MEDICAL HISTORY: PAST MEDICAL HISTORY Diagnosis Date Anxiety and depression Breast cancer (HCC) 09/29/2022 SURGICAL HISTORY: PAST SURGICAL HISTORY Procedure Laterality Date DENTAL SURGERY HX PT ED OBSTETRICS & GYNECOLOGY VAGINAL HYSTERECTOMY Bilateral 2013 and BSO SOCIAL HISTORY: Social History Socioeconomic History Marital status: Tobacco Use Smoking status: Former Packs/day: 0.25 Years: 15.00 Additional pack years: 0.00 Total pack years: 3.75 Types: Cigarettes Quit date: 2000 Years since quittin.8 Smokeless tobacco: Never Vaping Use Vaping Use: Never used Substance and Sexual Activity Drug use: Yes Types: Marijuana Comment: lalo Sexual activity: Yes Partners: Male CURRENT MEDICATIONS: Current Outpatient Medications Medication Instructions [START ON 03/20/2023] abemaciclib (VERZENIO) 150 mg, ORAL, 2 TIMES DAILY ALPRAZolam (XANAX) 0.5 mg, ORAL, 2 TIMES DAILY anastrozole (ARIMIDEX) 1 mg, ORAL, DAILY buPROPion SR (ZYBAN SR; WELLBUTRIN SR) 150 mg, ORAL, DAILY fexofenadine HCl (MONICA 60 MG CAP) 1 tablet, ORAL, DAILY ondansetron (ZOFRAN) 8 mg, ORAL, ONCE DAILY NEEDED silver sulfADIAZINE (SILVADENE) 1 % cream TOPICAL, 2 TIMES DAILY ALLERGIES: ALLERGIES No Known Allergies REVIEW OF SYSTEMS: GENERAL: No weight loss, malaise or fevers NECK: Negative for lumps, goiter, pain and significant neck swelling RESPIRATORY: Negative for cough, hemoptysis, wheezing, COPD, dyspnea or shortness of breath CARDIOVASCULAR: Negative for chest pain, leg swelling, hypertension, CHF or palpitations GI: No nausea, vomiting, or diarrhea : No history of dysuria, frequency or incontinence GIRLS TENNIS COACH: Negative for abnormal vaginal bleeding, abnormal vaginal discharge MUSCULOSKELETAL: Negative for joint pain or swelling, back pain or muscle pain SKIN: Negative for lesions, rash, and itching HEMATOLOGY/LYMPHOLOGY: Negative for prolonged bleeding, bruising easily or swollen nodes ENDOCRINE: Negative for cold or heat intolerance, polyuria, polydipsia and goiter PHYSICAL EXAM: There were no vitals taken for this visit. There is no height or weight on file to calculate BMI. GENERAL:well-nourished, healthy, alert and oriented x 3, calm SKIN:warm, dry, skin color, texture, turgor normal HEAD/EYES:normocephalic, atraumatic, and anicteric NECK: supple, symmetrical, no thyromegaly RESPIRATORY: Respirations regular & non-labored ABDOMEN: soft, nondistended. No hepatomegaly., No masses MUSCULOSKELETAL: No observed limitations in range of motion of upper extremities. Patient ambulates independently LEFT CHEST: Surgical incision well-healing with mild widening of distal incision, no underlying fluid collection. Lateral most posterior incision with small amount of excess tissue (Rt > Lt). RIGHT CHEST: Surgical incision well-healing with slight redundant tissue at distal aspect. Radiation changes over chest. Lateral most posterior incision with small area of excess tissue (Rt > Lt). IMAGING TO DATE: NA PATHOLOGY: NA ASSESSMENT: (C50.811, Z17.0) Malignant neoplasm of overlapping sites of right breast in female, estrogen receptor positive (HCC) (primary encounter diagnosis) Clive Cardoza is a 51 year old female with a history of long covid, depression, anxiety. Family history of breast cancer in [facility] (dx in her early 50s), no family hx of ovarian cancer. She presented for an evaluation of a new right breast 10:00 at least 2.4 cm int-poor diff invasive lobular ca with LCIS, ER+ (>95%), WV+ (>95%), HER2- (1+). Innumerable masses throughout the right breast. There is additional Lt breast 2.5 cm NME suspicious for malignancy. No axillary or internal mammary LAD noted on MRI. Biopsy of the Lt breast returned PASH, sclerotic fibrous stroma, sclerosing adenosis, DISCORDANT. She is now s/p b/l TM wo recon, b/l SLNB on 11/24/22. Final path showing Rt breast pT3N1a, superior radial margin focal 1.5 mm ILC but additional submitted superior/anterior margin overlying tumor was negative for carcinoma. pT3N1a. 1 SLN w/macromets, 1 SLN micromets, 5 SLN neg ca (2/7). No carcinoma in the Lt breast and 0/1 Lt axlilary SLN. PLAN: Survivorship visit Return to clinic as needed Attending Note: I have personally performed a face to face assessment of this Patient, which included an interview, physical exam, and discussion of the Breast Imaging, Assessment and Plan. I have reviewed and confirmed the history and sánchez findings as documented by the Physician Rock Contractor and edited as appropriate. I spent a total of 30 minutes on the date of the service which included preparing to see the patient, [id number] patient care, completing clinical documentation, performing a medically appropriate examination, counseling and educating the patient/family/caregiver, and care coordination (not separately reported). Messi Manley MD documented in this encounter [facility] 02-27-2023 Miscellaneous Notes RADIATION POST TREATMENT CALL BACK Today's date: February 27, 2023 Patient's final treatment on 02/20/23. Treatment site Right Chest and Regional Nodes Called patient to follow-up on symptom management and follow-up appointments. Spoke with Kwadwo who was treating class and stated she would call me back when she could talk.. Follow up appointment: Not yet scheduled 3 mo follow up with SARAH BETH and [address] Kaitlynn Turpin, RN documented in this encounter [facility] 02-24-2023 Note [facility] 02-24-2023 History of Present illness Narrative CLIVE CARDOZA [id number] 02/24/2023 [facility] Department of Radiation Oncology [facility] RADIATION ONCOLOGY: COMPLETION NOTE DATE OF SIMULATION: 01/16/2023 DATES OF TREATMENT: 01/31/2023 to 02/20/2023 TREATMENT MACHINE: [employer] TREATMENT AREA: Right chest wall and regional nodes DIAGNOSIS: Right breast cancer DELIVERED DOSE: The Right SCV received a total dose of 4005 cGy in 15 fractions at 267 cGy/fraction using 10 MV photons with 2-field technique. The Right chest wall received a total dose of 4005 cGy in 15 fractions at 267 cGy/fraction using 10 MV photons with Opposed Tangents technique; bolus was used for the 1st 8 fractions. ELAPSED DAYS: 20 TOLERANCE: At last on-treatment visit, her toxicity was summarized as: Grade 1 dermatitis. RESPONSE: To be assessed in outpatient clinic. cc: Nimisha Retana MD [address] [facility] [address] [place] [address] Messi Manley [address] [facility] [address] documented in this encounter [facility] 02-16-[address] Watts, patient reached out to me also. I am having Mary look into why this was cancelled for no reason and try to get her rescheduled same day. documented in this encounter [facility] 02-15-2023 Note [facility] 02-15-2023 History of Present illness Narrative Radiation Oncology - On Treatment Review (OTR) Note PATIENT NAME: Clive Cardoza PATIENT DIAGNOSIS: Right breast cancer, T3N1, ER+WV+/HER2-, s/p mastectomy COURSE: adjuvant Area Treated: Right Chest Wall and Regional Nodes Current dose: 3204 cGy in 12 fx Planned dose: 4005 cGy in 15 fx SUBJECTIVE: Kwadwo is here for OTR visit. She is tolerating RT well. Mild erythema tightness and fatigue. Using Miaderm and Curel for moisturizing. Above completed by Angie Turpin RN PHYSICAL EXAM: KPS: 90 General Appearance: Alert and oriented. No acute distress. Skin erythema/hyperpigmentation: Mild Desquamation: No TOXICITY ASSESSMENT (CTC v4.0): Fatigue:grade 0 - No symptoms Radiation dermatitis: grade 1 ASSESSMENT/PLAN: Clinically stable. Toxicity within expected parameters. Continue radiation treatment as planned. I have personally participated in the sánchez components of the case and agree with the above findings: Treatment chart checked: YES Patient treatment site reviewed and verified: YES Setup images reviewed and current: YES Signed by: Trevin Calderón MD documented in this encounter [facility] 02-13-2023 Note [facility] 02-13-2023 History of Present illness Narrative [facility] received prescription for Verzenio from Dr. Ryan, prior authorization was approved with details listed below. Plan Name: [employer] [place] reference number: [id number] Approval Dates: 01/14/2023 - 02/13/2024 Fior Morrison RN [facility] received prescription(s) for Verzenio from Dr. Ryan's office. Benefits investigation was conducted, indicating that a prior authorization is required by patient's insurance plan with [employer]. Encounter will be updated once prior authorization has been submitted by [facility]. Kaley Almodovar CPhT [facility] Oncology P: F: [email or web address] documented in this encounter [facility] 02-13-2023 Note [facility] 02-13-2023 Note [facility] 02-13-2023 Note [facility] 02-13-2023 Note HNO ID: [id number] Author: Get Ryan MD Service: ? Author Type: Physician Type: Progress Notes Filed: 02/13/2023 2:22 PM Note Text: onda [facility] 02-13-2023 Note [facility] 02-13-2023 History of Present illness Narrative Images from the original note were not included. [facility] Department of Pharmacy Oncology Pharmacy Medication Education Patient Name: Clive Cardoza Primary Oncologist: Dr. Get Ryan Diagnosis: Breast cancer Clive Cardoza is a 52 year old patient and daughter here today for medication education for PO abemaciclib (Verzenio) . Drug Interactions: Clinically significant interactions with chemotherapy, immunosuppression, or other standard of care treatment plan medications anticipated: No. There are no pertinent drug interactions identified. Patient was counseled accordingly. Allergies: Patient confirmed allergies documented in Epic are correct: Yes Was medication education provided?: Yes Medication Education: Administration and schedule: Abemaciclib 150 mg tablets - Plan to start abemaciclib 150 mg PO once daily for 1 week, followed by 150 mg PO twice daily (tentative plan to start ~1 month after completion of radiation therapy) - Abemaciclib prescription sent to [facility] Potential side effects discussed: blood clots, diarrhea, complications of myelosuppression (anemia, neutropenia, thrombocytopenia), fatigue, nausea/vomiting, alopecia, decrease in appetite, liver toxicity - Ondansetron 8 mg Q8H PRN sent to local pharmacy PO chemo: Verified patient understands where to store the drug. Yes Verified that patient understands prescription delivery, benefit investigation and refill process. Yes Was medication reconciliation performed?: Yes Changes made to medication list? No Current Outpatient Medications Medication Sig [START ON 03/20/2023] abemaciclib (VERZENIO) 150 mg tablet Take 1 tablet (150 mg) by mouth two times a day. ALPRAZolam (XANAX) 0.5 mg tablet Take 0.5 mg by mouth twice daily. anastrozole (ARIMIDEX) 1 mg tablet Take 1 tablet by mouth once daily. buPROPion SR (ZYBAN SR; WELLBUTRIN SR) 150 mg 12 hr tablet Take 150 mg by mouth once daily. fexofenadine HCl (MONICA 60 MG CAP) Take 1 tablet by mouth once daily. ondansetron (ZOFRAN) 8 mg tablet Take 1 tablet by mouth once daily as needed for nausea/vomiting. No current facility-administered medications for this visit. - Oral chemotherapy education was provided by a pharmacist YES Thank you for allowing us to participate in the care of this patient. I spent 15 time (15 minute increments) with the patient Mine Rukhsana Davila documented in this encounter [facility] 02-13-2023 History of Present illness Narrative onda documented in this encounter [facility] 02-13-2023 History of Present illness Narrative Images from the original note were not included. [facility] SOLID TUMOR ONCOLOGY PROGRESS NOTE PATIENT NAME: Clive Cardoza DATE: 02/13/2023 PHYSICIAN: Riya Ryan MD Some elements of all sections below were copied from my previous note of 01/04/2023 and have been re-examined and updated where appropriate. All elements reflect the medical decision making of today, 02/13/2023 PATIENT ID: Clive Cardoza is a 52 year old woman seen for continuing management of breast cancer. HISTORY OF THE PRESENT ILLNESS: Ms. Clive Cardoza says that a lesion in the upper outer quadrant of the right breast was previously noted and followed. Screening mammograms performed at [facility] on 09/13/22 showed extremely dense breasts. Architectural distortion in the upper portion of the right breast was sen as well as 2 focal nodules in the left breast. Bilateral diagnostic mammograms performed 09/16/22 at [facility] on 09/16/22 were read locally as showing a large spiculated mass in the upper outer quadrant of the right breast. In the left breast spot magnification views showed several asymmetries in the lower inner and upper inner quadrants. Bilateral breast ultrasound showed a 2.4 cm mass at 10:00 o'clock in the right breast as well as several non-specific small oval masses. A 0.8 cm hmass was seen at the 7:00 o'clock position of the left breast. 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 The invasive cancer measured 1.3 cm in the core biopsy and was strongly ER+ in >95% of cells, strongly WV+ in >95% of cells, and HER2 negative (1+ by IHC). Biopsy of a left breast lesion performed 09/29/22 showed intraductal papilloma with apocrine metaplasia. She had no symptoms suggestive of metastatic disease. Breast MRI done 10/19/22 showed multiple enhancing masses in the right breast as well as an area of non-mass enhancement in the left breast breast. MRI-guided biopsy of the left breast performed 10/21/22 showed PASH and other benign changes. Because of concerns about treatment delay, she was started on anastrozole on 10/25/22. Ms. So underwent bilateral mastectomy and bilateral sentinel node biopsies on 11/24/22. Pathology from that procedure showed: Left breast: Focal atypical ductal hyperplasia with unremarkable fiboradipose tissue in the SLN specimen. Right breast: Multiple foci of invasive lobular carcinoma with focal pleomorphic features, grade 2. the largest mass was 64 mm, with at least two other foci measuring 1-2 mm in size. Two (2) of 8 sentinel + other axillary nodes were involved by macrometastases measuring up to 7 mm without extranodal extension. The initial superior margin was involved by invasive cancer, but an additional superior margin specimen was negative. Angiolymphatic invasion was not seen. Staging CT chest/abdomen/pelvis was negative other than possible bone islands and bone scan showed only changes of DJD. Oncotype on her original biopsy was attempted but that biopsy could not be obtained. We requested Oncotype testing on the mastectomy specimen, which was taken 1 week after she stopped temporizing anastrozole, and it returned a Recurrence Score of 23. She is surgically post-menopausal. INTERVAL HISTORY: Clive Cardoza's 68-gene Custom Cancer Panel through [employer] was negative for a pathogenic variant. Ms. Cardoza is receiving post-mastectomy radiation therapy and tolerating it relatively well. She is staying at the [facility] and finds it a supportive environment. She has no new problems. She saw her dentist and needs no work. She was given a Pen Rider and is practicing optimal dental care. TREATMENT SUMMARY: Pre-op temporizing anastrozole 10/25/22 - 11/17/22 Bilateral mastectomy, L SLN, R SLN + ax sampling 11/24/22 Post-mastectomy radiation therapy - 02/20/23 Anastrozole (planned) 02/21/23 - Abemaciclib (planned) 03/20/23 - Zoledronic acid (planned) 04/03/23 - PHYSICAL EXAM: BP 131/72 Pulse 89 Temp 36.4 C (97.5 F) (Temporal) Resp 20 Wt 80.1 kg (176 lb 8 oz) SpO2 99% BMI 28.49 kg/m Body surface area is 1.93 meters squared. Clive Fragoso I a very pleasant 52 year old woman accompanied by her daughter. Performance Status=1. HEENT-no cervical adenopathy. Pulmonary-lungs are clear to ausculation. Cardiac-regular rate and rhythm. Breast and Chest Wall-bilateral mastectomy without reconstruction. Mild erythema over the right anterior chest wall, right axilla, and right superior posterior chest wall. Abdomen-no organomegaly, mass, or tenderness. Extremities-no arm edema. Skin-see breast exam. Neuro-grossly intact. LABORATORY: IMAGING: None this visit. IMPRESSION: Clive Cardoza is a 52 year old post-menopausal woman s/p bilateral mastectomy and right axillary node dissection for pathologic stage IB([id number] ER+, WV+, HER2-negative) invasive lobular carcinoma with pleomorphic features with Oncotype Dx Recurrence Score 23, done 1 week after stopping anastrozole. Cancer Staging Invasive lobular carcinoma of breast in female (HCC) Staging form: Breast, AJCC 8th Edition - Pathologic: Stage IB (pT3, pN1a, cM0, G2, ER+, WV+, HER2-) - Unsigned PLAN: The situation was reviewed and discussed. Questions were addressed. She will have a DXA scan done by her PCP. I recommended treatment with anastrozole + abemaciclib as a mainstay of systemic therapy, and recommended zoledronic as well. -She will resume anastrozole on 02/21/23, the day after completing radiation therapy. -She will start abemaciclib on 03/20/23, 4 weeks after completing radiation therapy. She will take 150 mg po daily x 1 week and then 150 mg po BID thereafter. -She will return the week of 04/03/23 for survivorship visit, toxicity check and her first dose of zoledronic acid. I spent a total of 40 minutes on the date of the service which included preparing to see the patient, [id number] patient care, completing clinical documentation, obtaining and/or reviewing separately obtained history, performing a medically appropriate examination, counseling and educating the patient/family/caregiver, ordering medications, tests, or procedures, communicating with other HCPs (not separately reported), independently interpreting results (not separately reported), communicating results to the patient/family/caregiver, and care coordination (not separately reported). Riya Ryan MD cc: Nimisha Retana MD Trevin Mason MD documented in this encounter [facility] 02-13-2023 Nurse Note Additional intake questions: Has the patient had fever, nausea, vomiting, diarrhea, constipation, fatigue for > 1 week? Yes, nausea, diarrhea ( 1 times in last 24 hours), and Provider Notified Does the patient have a decreased appetite? Yes Does patient want to see a Truck Despatcher? No (yes to any of above refer patient to schedulers for dietitian appointment) ) Does patient have any new or increased numbness or tingling of extremities? No Is patient interested in fertility information? NA Does patient need any prescription refills? No Does patient have an advanced directive in place? No, Patient referred to [facility] documented in this encounter [facility] 02-08-2023 Note [facility] 02-08-2023 History of Present illness Narrative Radiation Oncology - On Treatment Review (OTR) Note PATIENT NAME: Clive Cardoza PATIENT DIAGNOSIS: Right breast cancer, T3N1, ER+WV+/HER2-, s/p mastectomy COURSE: adjuvant Area Treated: Right Chest Wall and Regional Nodes Current dose: 1869 cGy in 7 fx Planned dose: 4005 cGy in 15 fx SUBJECTIVE: Kwadwo is here for OTR visit. She is tolerating RT well. Mild erythema and fatigue. Using Miaderm for moisturizing. Above completed by Angie Turpin RN PHYSICAL EXAM: KPS: 90 General Appearance: Alert and oriented. No acute distress. Skin erythema/hyperpigmentation: No Desquamation: No TOXICITY ASSESSMENT (CTC v4.0): Fatigue:grade 0 - No symptoms Radiation dermatitis: grade 0 - No symptoms ASSESSMENT/PLAN: Clinically stable. Toxicity within expected parameters. Continue radiation treatment as planned. I have personally participated in the sánchez components of the case and agree with the above findings: Treatment chart checked: YES Patient treatment site reviewed and verified: YES Setup images reviewed and current: YES Signed by: Trevin Calderón MD documented in this encounter [facility] 02-01-2023 Note [facility] 01-23-2023 Miscellaneous Notes [facility] paperwork for patient's daughter Minerva has been signed and faxed to [employer] with confirmation received for dates 01/30/23 -02/20/23. Angie Turpin RN documented in this encounter [facility] 01-16-2023 Note [facility] 01-16-2023 Note [facility] 01-16-2023 Note [facility] 01-16-2023 Note [facility] 01-16-2023 Nurse Note Radiation Therapy - Patient Education Note PATIENT NAME: Clive Cardoza PATIENT January 16, 2023 [facility] FACILITY/LOCATION: [facility] READINESS TO LEARN Cognitive Ability: Alert and oriented Motivation to learn: Eager Interested Family Support: High - Very involved in pt care Instruction provide to: Patient and family member Patient learns best by: Individual Instruction Written Instruction - Hand-outs Verbal Instruction Factors effecting learning: None Physical limitations effecting learning: None LEARNING RESPONSE Diagnosis: Pt simulated today for radiation therapy to right breast. Education Topic/Teaching Points: Radiation therapy, Side effects, and OTV: Method of instruction: Individual instruction Written instruction - handouts Verbal instruction Patient /Family response: Patient and family verbalized understanding of radiation treatments, side effects, OTV, and transportation. Follow-up plan: Patient instructed to call with any further issues Supplemental material: Informational handouts on Breast packet. Referral (recommendation): None, Pt denied need for social work, van service, and gopherman. Was approved? Yes Signed by: Melody Rios RN documented in this encounter [facility] 01-16-2023 History of Present illness Narrative Consent Note: Patient presented with breast cancer for pre-sim consent prior to radiation simulation and treatment planning. We discussed the nature of the disease, as well as the radiation therapy risks, benefits, alternatives, side effects, complications, involved personnel, and plan. All questions were answered to the patient's satisfaction. Signed informed consent was obtained. Eileen Clemente MD Radiation Oncology, PGY-2 documented in this encounter [facility] 01-16-2023 History of Present illness Narrative {Patient.NameLFM@U} {Ident.MANUEL} {Ident.MITCHELL} {Object.Encounter_Date} [facility] Department of Radiation Oncology [facility] RADIATION ONCOLOGY SIMULATION NOTE DATE OF SIMULATION: {Object.Encounter_Date} MACHINE: CT Simulator DIAGNOSIS: Right breast cancer AREA: RIGHT BREAST PATIENT POSITION: Supine. CONTRAST: None PROTOCOL: None BLOCKS: Custom blocks are necessary to develop an optimal plan. FIXATION DEVICE: In order to achieve accurate and reproducible treatments, the patient is immobilized with ABC DEVICE. PROCEDURE: A time-out was conducted and recorded by the therapist. Patient was simulated on the CT scanner for external beam radiation therapy. Treatment site was marked by the simulation therapist. ASSESSMENT/PLAN: Patient tolerated simulation procedure well. Treatments will be initiated after treatment planning. The patient will be scheduled for a verification simulation on the treatment machine to ensure proper set-up and field arrangement is correct prior to the first treatment of primary and any boost hyde if applicable. Electronically Signed Trevin Calderón M.D. :16 PM documented in this encounter [facility] 01-16-2023 History of Present illness Narrative CLIVE CARDOZA [id number] 01/16/2023 [facility] Department of Radiation Oncology Treatment Planning Note For reasons stated in the consult note, Clive Cardoza is a candidate for radiation therapy. Based on review and interpretation of the relevant diagnostic studies together with the exam findings, Clive Cardoza was simulated on 01/16/2023 at which time the target volume and/or requisite hyde were delineated, as indicated in the simulation note, to be treated according to the prescription. CT images were taken during controlled breathing using a breath hold device. Multiple CT image sets were acquired and reviewed to assess respiratory reproducibility, which was incorporated in the internal target volume (ITV). Motion management allowed for design of patient specific planning target volume and reduced the radiation exposure to normal tissues. The treatment target and organs at risk were contoured on the simulation scan. After reviewing multiple treatment plans with dosimetry, the best plan was approved to deliver the prescribed course of radiation to the target area using 3D planning to allow for the best isodose distribution, treating to the 99%/99.0%/98.5% isodose line with 10MV and 6 hyde. Custom MLCs were the treatment device used to shape/modify the beams. Limiting dose to normal tissue was confirmed upon review of the calculated dose volume histogram. A completed summary of this plan dated 01/25/2023 incorporated herein by reference includes dose, beam arrangements, energy, blocking, isodose distribution, and/or ports and DVH. Electronically Signed Trevin Calderón M.D. 37:58 AM documented in this encounter [facility] 01-09-2023 Note [facility] 01-09-2023 History of Present illness Narrative [facility] Consultation Note Genetic Counselor: Kaley Barriga, MS, [facility] Patient: Clive Cardoza Patient Name and confirmed at initiation of visit. This visit was conducted virtually via [employer]. I have communicated my name and active licensure. The patient's identity and physical location were verified at the time of this visit. Either the patient or their legal clearance representative has been informed of the risks and benefits of -- and alternatives to -- treatment through a remote evaluation and consents to proceed with the evaluation remotely. HIGH LEVEL SUMMARY: The patient's personal and family history is not overly suggestive of a hereditary cancer syndrome. The patient provided informed consent for 68-gene Custom Cancer Panel through [employer] via a self pay option. We will arrange for a saliva kit to be sent to the patient's home address. Results are expected in 3 weeks. IDENTIFICATION AND CHIEF COMPLAINT: Dr. Jacqueline Altamirano requested a consultation for genetic counseling and risk assessment for Clive Cardoza, a 52 year old female, for discussion of her personal and family history of cancer. She presents to clinic today to discuss the possibility of a genetic predisposition to cancer, and to further clarify her risks, as well as her family members' risks for cancer. HISTORY OF PRESENT ILLNESS: In September 2022, at the age of 51, Clive Cardoza was diagnosed with right invasive lobular carcinoma, ER+/[id number]+/[id number]-. She underwent a bilateral mastectomy. PAST MEDICAL HISTORY Diagnosis Date Anxiety and depression Breast cancer (HCC) 09/29/2022 PAST SURGICAL HISTORY Procedure Laterality Date DENTAL SURGERY HX PT ED OBSTETRICS & GYNECOLOGY VAGINAL HYSTERECTOMY Bilateral 2013 and BSO CANCER SURVEILLANCE HISTORY: Colonoscopy: No / has had normal Cologuard, most recently in 2019 EGD: No GI Polyps: No Dermatology: Yes / normal skin check 2021 REPRODUCTIVE HISTORY AND PERSONAL RISK ASSESSMENT FACTORS: Uterus Intact: No Ovaries Intact: Yes SOCIAL HISTORY: Social History Tobacco Use Smoking status: Former Packs/day: 0.25 Years: 15.00 Additional pack years: 0.00 Total pack years: 3.75 Types: Cigarettes Quit date: 2000 Years since quittin.7 Smokeless tobacco: Never Substance Use Topics Drug use: Yes Types: Marijuana Comment: gummies FAMILY HISTORY: We obtained a detailed, 4-generation family history. Significant diagnoses are listed below: FAMILY HISTORY Problem Relation Age of Onset Anesthesia Problems Mother other (felt locked within her body with ketamine) Mother Lung Cancer Maternal Grandfather Prostate Cancer Paternal Grandfather dx in his 70s Gastric Cancer Paternal Aunt Dx 50s other (bone cancer) Paternal Uncle other (jaw cancer) Paternal cousin 13 Breast Cancer Maternal cousin dx in her early 50s The patient's ancestors are of [place] and Japanese descent. There is no Ashkenazi Adventist ancestry. There is no known consanguinity. A copy of the patient's pedigree will be available under the scanned documents tab following today's visit. GENETIC COUNSELING RISK ASSESSMENT, DISCUSSION, AND SUGGESTED FOLLOW UP: We reviewed the natural history and genetic etiology of sporadic, familial and hereditary cancer syndromes. The patient's personal and family history is not overly suggestive of: a hereditary cancer syndrome. She does not meet NCCN criteria for testing. We discussed that identification of a hereditary cancer syndrome may help her care providers tailor her medical management. If a mutation is detected, the National Comprehensive Cancer Network and/or expert opinion recommendations could include increased cancer surveillance and targeted treatment options. If a mutation is detected, the patient will be referred back to the referring provider and to any additional appropriate care providers to discuss the relevant options. Inheritance of hereditary cancer syndromes was discussed with the patient. If a mutation is not found in the patient, this will decrease the likelihood of a hereditary cancer syndrome for the patient, however it cannot rule it out as the explanation for the personal and family history of cancer. Cancer surveillance options would be discussed for the patient according to the appropriate standard National Comprehensive Cancer Network and [place] Cancer Society guidelines, with consideration of their personal and family history risk factors. In this case, the patient will be referred back to their care providers for discussions of management. Based on this assessment of the patient's family and personal history, genetic testing is not recommended, but could be considered via a self pay option.. After considering the risks, benefits, and limitations, the patient chose to pursue and provided informed consent for the following testin-gene Custom Cancer Panel through [employer]. The 68-gene Custom Cancer Panel includes ANKRD26, APC, KATHIA, AXIN2, BAP1, BARD1, BMPR1A, BRCA1, BRCA2, BRIP1, CDH1, CDK4, CDKN2A, CEBPA, CHEK2, CTNNA1, DDX41, DICER1, ELANE, EPCAM, ETV6, FH, FLCN, GATA2, GREM1, HOXB13, MAX, MBD4, MEN1, MET, MITF, MLH1, MSH2, MSH3, MSH6, MUTYH, NF1, NTHL1, PALB2, PMS2, POLD1, POLE, POT1, PTCH1, PTEN, RAD51C, RAD51D, RET, RTEL1, RUNX1, SAMD9, SAMD9L, SDHA, SDHAF2, SDHB, SDHC, SDHD, SMAD4, SMARCA4, STK11, TERC, TERT, TINF2, VRZS677, TP53, TSC1, TSC2, and VHL. The Custom Cancer Panel looks at genes associated with inherited breast, ovarian, pancreatic, prostate, colon, uterine, kidney, stomach, endocrine, and hematologic (blood) cancers as well as inherited colon polyp and melanoma syndromes. We discussed that an NGS panel can rarely result in an unexpected finding which may or may not be related to the presenting phenotype. Per the patient's request, we will contact her by telephone to discuss these results. A follow up genetic counseling visit will be scheduled if requested. The patient was seen for a total of 25 minutes, greater than 50% of which was spent [id number] counseling. This plan is being carried out under the oversight of Dr. Peyton Rehman. This note will also be sent to the referring provider via the electronic medical record. Kaley Barriga MS, [facility] CC: Dr. Jacqueline Rehman documented in this encounter [facility] 01-05-2023 Miscellaneous Notes Images from the original note were not included. [facility] Department of Pharmacy, Oncology NAME: Clive Cardoza Primary Oncologist: Isaias Primary Cancer: BC : 1970 ORAL CHEMOTHERAPY/HORMONAL THERAPY EDUCATION Mr./Ms. Clive Cardoza is a 52 yo female with Early stage breast cancer who presents to clinic for adjuvant abemaciclib. Chemotherapy education and handouts were provided to the patient today in clinic. Regimen: Oral chemotherapy/hormonal agent: Abemaciclib Dose/schedule: 150mg BID x 2 years Tentative start date: Post Radiation Education: Chemotherapy Education Side effects discussed included, but were not limited to: Supportive Care Medication Education Diarrhea management Storage/Handling Proper storage of oral chemotherapy/hormonal agent(s) discussed: store in a cool, dry area The following handout(s) were provided: Oral Chemotherapy Education (OCE) Plan and Recommendations: Follow-up: Patient will f/u w/ Dr. Ryan in 3-4 weeks to discuss how radiation is going and get prescrioption for abema Patient verbalized understanding of therapy dosing, administrations, as well as all other ADEs secondary to chemotherapy. I spent 20 minutes in direct patient care. Abhijeet Rinaldi RPh, PharmD, [facility] Solid Tumor Oncology Clinical Business Development Coordinator Pager: [phone] documented in this encounter [facility] 01-04-2023 Note [facility] 01-04-2023 History of Present illness Narrative [facility] VISIT [facility] which required patient-provider interaction for the medical decision making as documented below. Persons Present: patient I have communicated my name and active licensure. The patient s identity and physical location were verified at the time of this visit. Clive Cardoza or their legal clearance representative has been informed of the risks and benefits of -- and alternatives to -- treatment through a remote evaluation and consents to proceed with the evaluation remotely. Total Time Spent: more than 30 minutes [id number] with the patient and over half the time was devoted to counseling and/or coordination of care. [facility] SOLID TUMOR ONCOLOGY PROGRESS NOTE PATIENT NAME: Clive Cardoza DATE: 01/04/2023 PHYSICIAN: Riya Ryan MD Some elements of all sections below were copied from my previous note of 12/19/2022 and have been re-examined and updated where appropriate. All elements reflect the medical decision making of today, 01/04/2023 PATIENT ID: Clive Cardoza is a 52 year old woman seen for continuing management of breast cancer. HISTORY OF THE PRESENT ILLNESS: Ms. Clive Cardoza says that a lesion in the upper outer quadrant of the right breast was previously noted and followed. Screening mammograms performed at [facility] on 09/13/22 showed extremely dense breasts. Architectural distortion in the upper portion of the right breast was sen as well as 2 focal nodules in the left breast. Bilateral diagnostic mammograms performed 09/16/22 at [facility] on 09/16/22 were read locally as showing a large spiculated mass in the upper outer quadrant of the right breast. In the left breast spot magnification views showed several asymmetries in the lower inner and upper inner quadrants. Bilateral breast ultrasound showed a 2.4 cm mass at 10:00 o'clock in the right breast as well as several non-specific small oval masses. A 0.8 cm hmass was seen at the 7:00 o'clock position of the left breast. 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 The invasive cancer measured 1.3 cm in the core biopsy and was strongly ER+ in >95% of cells, strongly WV+ in >95% of cells, and HER2 negative (1+ by IHC). Biopsy of a left breast lesion performed 09/29/22 showed intraductal papilloma with apocrine metaplasia. She had no symptoms suggestive of metastatic disease. Breast MRI done 10/19/22 showed multiple enhancing masses in the right breast as well as an area of non-mass enhancement in the left breast breast. MRI-guided biopsy of the left breast performed 10/21/22 showed PASH and other benign changes. Because of concerns about treatment delay, she was started on anastrozole on 10/25/22. Ms. So underwent bilateral mastectomy and bilateral sentinel node biopsies on 11/24/22. Pathology from that procedure showed: Left breast: Focal atypical ductal hyperplasia with unremarkable fiboradipose tissue in the SLN specimen. Right breast: Multiple foci of invasive lobular carcinoma with focal pleomorphic features, grade 2. the largest mass was 64 mm, with at least two other foci measuring 1-2 mm in size. Two (2) of 8 sentinel + other axillary nodes were involved by macrometastases measuring up to 7 mm without extranodal extension. The initial superior margin was involved by invasive cancer, but an additional superior margin specimen was negative. Angiolymphatic invasion was not seen. Staging CT chest/abdomen/pelvis was negative other than possible bone islands and bone scan showed only changes of DJD. Oncotype on her original biopsy was attempted but that biopsy could not be obtained. INTERVAL HISTORY: We requested Oncotype testing on the mastectomy specimen, which was taken 1 week after she stopped temporizing anastrozole, and it has returned a Recurrence Score of 23. She is surgically post-menopausal. She feels well, but is continuing to heal from her bilateral mastectomy. TREATMENT SUMMARY: Bilateral mastectomy, L SLN, R SLN + ax sampling 11/24/22 PHYSICAL EXAM: There were no vitals taken for this visit. There is no height or weight on file to calculate BSA. Clive Fragoso I a very pleasant 52 year old woman seen on the Zoom platform. Performance Status=0. HEENT-unremarkable. Pulmonary-no wheezing or coughing heard. Cardiac-not examined. Breast and Chest Wall-not examined. Abdomen-not examined. Extremities-no lymphedema seen. Neuro-grossly intact. LABORATORY: IMAGING: None this visit. IMPRESSION: Clive Cardoza is a 52 year old woman s/p bilateral mastectomy and right alnd for pathologic stage IB(C5H1dQ6 ER+, WV+, HER2-negative) invasive lobular carcinoma with pleomorphic features with Oncotype Dx Recurrence Score 23, done 1 week after stopping anastrozole. Cancer Staging Invasive lobular carcinoma of breast in female (HCC) Staging form: Breast, AJCC 8th Edition - Pathologic: Stage IB (pT3, pN1a, cM0, G2, ER+, WV+, HER2-) - Unsigned PLAN: The situation was reviewed and discussed. Several excellent questions were addressed. -She will start po FeS04 300-325 mg q MWF with Vitamin C. -I recommended treatment with anastrozole + abemaciclib as a mainstay of systemic therapy, and recommended zoledronic as well. -She will proceed with radiation therapy and will hold anastrozole during radiation. -I will see her in 3-4 weeks, toward the end of her radiation therapy, at which time we will -plan to resume anastrozole, -start abemaciclib, -arrange zoledronic acid treatment, and -plan a survivorship visit and follow-up for abemaciclib Riya Ryan MD cc: Nimisha Retana MD Trevin Mason MD documented in this encounter [facility] 12-28-2022 Miscellaneous Notes Call returned, informed [place] we sent tissue from [facility]. Understanding verbalized. Clive Cardoza('s) caregiver: [place] [facility] is calling Riya Ryan MD today regarding Ingot Caster - Other (Need to know which block for patient has enough tissue to send for Oncotype) [place] from pathology at [facility] called stating that patient needs oncotype testing but they are unsure which one to use. She stated there were 2 blocks on slide A and 1 on slide B, they need to know which one has enough tissue to send for testing. Please call her back at [phone]. Patient has been identified by name and birthdate. Requesting response back: [phone] (home) [phone] (cell) Solange Orosco December 23, 2022 documented in this encounter [facility] 12-20-2022 Miscellaneous Notes Done. Patient needs a return to work letter via [employer]. Date returning is 01/09. Restrictions? documented in this encounter [facility] 12-19-2022 Note [facility] 12-19-2022 History of Present illness Narrative [facility] SOLID TUMOR ONCOLOGY PROGRESS NOTE PATIENT NAME: Clive Cardoza DATE: 12/19/2022 PHYSICIAN: Riya Ryan MD Some elements of all sections below were copied from my previous note of 12/02/2022.and have been re-examined and updated where appropriate. All elements reflect the medical decision making of today, 12/19/2022 PATIENT ID: Clive Cardoza is a 52 year old woman seen post-operatively for breast cancer. HISTORY OF THE PRESENT ILLNESS: Ms. Clive Cardoza says that a lesion in the upper outer quadrant of the right breast was previously noted and followed. Screening mammograms performed at [facility] on 09/13/22 showed extremely dense breasts. Architectural distortion in the upper portion of the right breast was sen as well as 2 focal nodules in the left breast. Bilateral diagnostic mammograms performed 09/16/22 at [facility] on 09/16/22 were read locally as showing a large spiculated mass in the upper outer quadrant of the right breast. In the left breast spot magnification views showed several asymmetries in the lower inner and upper inner quadrants. Bilateral breast ultrasound showed a 2.4 cm mass at 10:00 o'clock in the right breast as well as several non-specific small oval masses. A 0.8 cm hmass was seen at the 7:00 o'clock position of the left breast. 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 The invasive cancer measured 1.3 cm in the core biopsy and was strongly ER+ in >95% of cells, strongly WV+ in >95% of cells, and HER2 negative (1+ by IHC). Biopsy of a left breast lesion performed 09/29/22 showed intraductal papilloma with apocrine metaplasia. She had no symptoms suggestive of metastatic disease. Breast MRI done 10/19/22 showed multiple enhancing masses in the right breast as well as an area of non-mass enhancement in the left breast breast. MRI-guided biopsy of the left breast performed 10/21/22 showed PASH and other benign changes. Because of concerns about treatment delay, she was started on anastrozole on 10/25/22. Ms. So underwent bilateral mastectomy and bilateral sentinel node biopsies on 11/24/22. Pathology from that procedure showed: Left breast: Focal atypical ductal hyperplasia with unremarkable fiboradipose tissue in the SLN specimen. Right breast: Multiple foci of invasive lobular carcinoma with focal pleomorphic features, grade 2. the largest mass was 64 mm, with at least two other foci measuring 1-2 mm in size. Two (2) of 8 sentinel + other axillary nodes were involved by macrometastases measuring up to 7 mm without extranodal extension. The initial superior margin was involved by invasive cancer, but an additional superior margin specimen was negative. Angiolymphatic invasion was not seen. INTERVAL HISTORY: Staging CT chest/abdomen/pelvis was negative other than possible bone islands and bone scan showed only changes of DJD. Oncotype on her original biopsy was attempted but that biopsy could not be obtained. We have requested Oncotype testing on the mastectomy specimen, which was taken 1 week after she stopped temporizing anastrozole. She feels well, but is continuing to heal from her bilateral mastectomy. TREATMENT SUMMARY: Bilateral mastectomy, L SLN, R SLN + ax sampling 11/24/22 PHYSICAL EXAM: BP 129/70 Pulse 92 Temp 36.1 C (97 F) (Oral) Resp 16 Ht 167.6 cm (5' 6 ) Wt 82.1 kg (181 lb) SpO2 99% BMI 29.21 kg/m Body surface area is 1.96 meters squared. Clive Fragoso I a very pleasant 52 year old woman accompanied by her . Performance Status=0. HEENT-no palpable cervical adenopathy. Pulmonary-lungs are clear to ausculation. Cardiac-regular rate and rhythm. Breast and Chest Wall-bilateral mastectomies without reconstruction. Abdomen-no organomegaly, mass, or tenderness. Extremities-no arm edema. Skin-no rash. Neuro-grossly intact. LABORATORY: Component Latest Ref Rng & Units 12/14/2022 Protein, Total 6.3 - 8.0 g/dL 6.5 Albumin 3.9 - 4.9 g/dL 4.1 Calcium 8.5 - 10.2 mg/dL 9.5 Bilirubin, Total 0.2 - 1.3 mg/dL 0.5 Alkaline Phosphatase 34 - 104 U/L 68 AST 13 - 39 U/L 37 ALT 7 - 52 U/L 63 (H) Glucose 74 - 99 mg/dL 85 BUN 7 - 25 mg/dL 13 Creatinine 0.60 - 1.30 mg/dL 0.67 Sodium 136 - 144 mmol/L 136 Potassium 3.5 - 5.1 mmol/L 3.9 Chloride 98 - 107 mmol/L 100 CO2 22 - 30 mmol/L 30 Anion Gap 9 - 18 mmol/L 6 (L) eGFR >=60 mL/min/1.73m 104 WBC 3.70 - 11.00 k/uL 4.55 RBC 3.90 - 5.20 m/uL 4.39 Hemoglobin 11.5 - 15.5 g/dL 12.7 Hematocrit 36.0 - 46.0 % 39.9 MCV 80.0 - 100.0 fL 90.9 MCH 26.0 - 34.0 pg 28.9 MCHC 30.5 - 36.0 g/dL 31.8 RDW-CV 11.5 - 15.0 % 14.0 Platelet Count 150 - 400 k/uL 316 MPV 9.0 - 12.7 fL 9.2 Abs Neut (ANC) 1.45 - 7.50 k/uL 3.16 IMMATURE GRANS (ABS) <0.10 k/uL <0.03 Absolute nRBC <0.01 k/uL <0.01 IMAGING: See interval hisotry. IMPRESSION: Clive Cardoza is a 52 year old woman s/p bilateral mastectomy and right alnd for pathologic stage IB(L6W5sQ6 ER+, WV+, HER2-negative) invasive lobular carcinoma with pleomorphic features. Cancer Staging Invasive lobular carcinoma of breast in female (HCC) Staging form: Breast, AJCC 8th Edition - Pathologic: Stage IB (pT3, pN1a, cM0, G2, ER+, WV+, HER2-) - Unsigned PLAN: The situation was reviewed and discussed. -I recommended treatment with anastrozole + abemaciclib as a mainstay of therapy, and recommended zoledronic as well. -A mutual decision was made to send her masectomy tumor specimen for Oncotype Dx testing. -I will see her in 2-3 weeks by virtual visit to discuss systemic therapy informed by the Oncotype Dx Recurrence Score. I spent a total of 20 minutes on the date of the service which included preparing to see the patient, [id number] patient care, completing clinical documentation, obtaining and/or reviewing separately obtained history, performing a medically appropriate examination, counseling and educating the patient/family/caregiver, ordering medications, tests, or procedures, communicating with other HCPs (not separately reported), independently interpreting results (not separately reported), communicating results to the patient/family/caregiver, and care coordination (not separately reported). Riya Ryan MD cc: Nimisha Retana MD Trevin Mason MD documented in this encounter [facility] 12-19-2022 Nurse Note Additional intake questions: Has the patient had fever, nausea, vomiting, diarrhea, constipation, fatigue for > 1 week? No Does the patient have a decreased appetite? Yes Does patient want to see a Truck Despatcher? Yes, MD Notified (yes to any of above refer patient to schedulers for dietitian appointment) ) Does patient have any new or increased numbness or tingling of extremities? Yes, hands Is patient interested in fertility information? No Does patient need any prescription refills? No Does patient have an advanced directive in place? No, Patient referred to [facility] documented in this encounter [facility] 12-19-2022 Miscellaneous Notes Per discussion with Dr Ryan, will plan to send Oncotype on surgical specimen to avoid additional delay. [facility] updated, they will reach out to [facility] to request surgical specimen [id number] from date of collection 11/24. Will need to reschedule follow-up to discuss oncotype results once available. Per Dr Ryan, okay to keep or cancel visit later this afternoon based on patient preference. Attempted to contact patient, no reply, detailed VM message left with update above and return number to confirm if she would like to keep or cancel visit today. Explained we would also plan to schedule a separate visit to discuss Oncotype results once available. Randee Cardoza RN [employer] contacted to check status of Oncotype testing. Per clearance representative, order was submitted 12/05 and they requested pathology sample same-day to [facility]. Per order, [facility] has requested biopsy specimen with date of collection 09/29/2022 specimen# [id number]. As of this morning [facility] has been unable to reach anyone at [facility] pathology department, no specimen has been received. Will review with Dr Ryan. Randee Cardoza RN Clive Cardoza('s) is calling Riya Ryan MD today regarding Ingot Caster - Other (Has oncotype results been received) Patient called in stating that Dr. Ryan instructed her to call to see if her oncotype results has been received before coming to her appt. She has an appt this afternoon at 3pm. She is currently at main getting a bone scan at 10:30am, would like to be called this afternoon before her appointment. Patient has been identified by name and birthdate. Requesting response back: [phone] (home) [phone] (cell) Solange Orosco December 19, 2022 documented in this encounter [facility] 12-19-2022 Note [facility] 12-19-2022 History of Present illness Narrative RADIOLOGY SERVICE PROGRESS NOTE SERVICE DATE: 12/19/2022 SERVICE TIME: 8:28 AM PATIENT IDENTITY VERIFICATION COMPLETED USING TWO (2) STANDARD IDENTIFIERS: Name and Date of confirmed by patient verbally and Name and Date of confirmed by identification band FALL SCREENING: Has the patient had 2 falls in the last year or 1 fall with injury or currently using an Ambulatory Assistive Device (Walker, Cane, Wheelchair, Crutches, etc.)? No PATIENT GENDER DATA: .female : No ALLERGIES: Reviewed and unchanged MEDICATIONS REVIEWED: Yes PATIENT RELEVANT IMPLANT DATA REVIEWED: Not Applicable CREATININE: Creatinine Date Value Ref Range Status 12/14/2022 0.67 0.60 - 1.30 mg/dL Final 10/31/2022 0.71 0.58 - 0.96 mg/dL Final Estimated Glomerular Filtration Rate Date Value Ref Range Status 12/14/2022 104 >=60 mL/min/1.73m Final Comment: Estimated Glomerular Filtration Rate (eGFR) is calculated using the 2020 CKD-EPI creatinine equation. This equation utilizes serum creatinine, sex, and age as parameters. The creatinine assay has traceable calibration to isotope dilution-mass spectrometry. Refer to KDIGO guidelines for clinical interpretation. In patients with unstable renal function, e.g. those with acute kidney injury, the eGFR may not accurately reflect actual GFR. P.O.C.T. RESULTS: N/A December 19, [address] PERFORMED: No IV SITE: Ambulatory: A peripheral IV was started in the Right antecubital site with a Angio cath: 22 gauge. POST EXAM PIV STATUS: Discontinued PROCEDURE TYPE: NM INJECT: Whole Body Bone Scan. 20.4 mCi Tc99m HDP. No other medications given.. ADMINISTRATION TIME: 823 PATIENT DISCHARGED TO: Ambulatory patient, left NM department area. A Diagnostic radioactive procedure has taken place, with no further precautions necessary other than routine body substance precautions. More information regarding radiation safety can be found using this link: [email or web address] SIGNATURE: Reba Bateman PATIENT NAME: Clive Cardoza DATE: December 19, 2022 TIME: 8:28 AM PAGER/CONTACT #: documented in this encounter [facility] 12-15-2022 Note [facility] 12-15-2022 History of Present illness Narrative POPULATION HEALTH NAVIGATION OUTREACH Action/I Patient Outreach: Spoke with patient to schedule in RST. Pt declined RST Consult. She will be getting Breast Rehab locally. Patient Identified by Name and : YES, via phone Outreach Outcome/Action Spoke to patient / parent / legal guardian: Patient declined Did you use a PCP flex slot to schedule this appointment? No Reason for Outreach Care Gap or Scheduling/Wellness visits Payer: Payor: MMO / Plan: MMO SUPERMED PPO / Product Type: PPO / Care Gap Reviewed:: Specialty Scheduling Reminder: Reminder note to check Health Maintenance for items below Health Maintenance items due: HEPATITIS B(1 of 3 - 3-dose series) Never done HEPATITIS C SCREENING Never done HIV SCREENING Never done DTAP,TDAP,TD(1 - Tdap) Never done PAP TESTING Never done HPV TESTING Never done COLORECTAL CANCER SCREENING Never done SHINGRIX VACCINE(1 of 2) Never done COVID-19 VACCINE(5 - Moderna series) due on 01/26/2022 Navigation Signature: Trinh Ramirezjames Pino December 15, 2022 1:28 PM documented in this encounter [facility] 12-14-2022 Note HNO ID: [id number] Author: Lucy Larson RT(R) Service: ? Author Type: Technologist Type: Progress Notes Filed: 12/14/2022 9:03 AM Note Text: Radiology Service Progress Note PATIENT NAME: Clive Cardoza DATE OF SERVICE: December 14, 2022 TIME: 8:53 AM PATIENT IDENTITY VERIFICATION COMPLETED USING TWO (2) IDENTIFIERS: Name and Date of confirmed by patient verbally. FALL SCREENING: Has the patient had 2 falls in the last year or 1 fall with injury or currently using an Ambulatory Assistive Device (Walker, Cane, Wheelchair, Crutches, etc.)? No PATIENT GENDER DATA: Female. status: : No status: NO. PATIENT RELEVANT IMPLANT DATA REVIEWED: Yes RADIOLOGY DEPARTMENT: CT; Exam(s) Completed: Chest Abdomen Pelvis PERIPHERAL IV DATA: Site assessment: Clean,Dry and Intact, Site disposition Discontinued SIGNED BY: RT Lynda(R) December 14, 2022 8:53 AM [facility] 12-14-2022 History of Present illness Narrative Radiology Service Progress Note PATIENT NAME: Clive Cardoza DATE OF SERVICE: December 14, 2022 TIME: 8:53 AM PATIENT IDENTITY VERIFICATION COMPLETED USING TWO (2) IDENTIFIERS: Name and Date of confirmed by patient verbally. FALL SCREENING: Has the patient had 2 falls in the last year or 1 fall with injury or currently using an Ambulatory Assistive Device (Walker, Cane, Wheelchair, Crutches, etc.)? No PATIENT GENDER DATA: Female. status: : No status: NO. PATIENT RELEVANT IMPLANT DATA REVIEWED: Yes RADIOLOGY DEPARTMENT: CT; Exam(s) Completed: Chest Abdomen Pelvis PERIPHERAL IV DATA: Site assessment: Clean,Dry and Intact, Site disposition Discontinued SIGNED BY: RT Lynda(R) December 14, 2022 8:53 AM documented in this encounter [facility] 12-14-2022 Nurse Note Radiology Service Progress Note DATE OF SERVICE: December 14, 2022 TIME: 8:08 AM PATIENT WEIGHT: 144 LBS PATIENT IDENTITY VERIFICATION COMPLETED USING TWO (2) STANDARD IDENTIFIERS: Name and Date of confirmed by patient verbally. FALL SCREENING: Has the patient had 2 falls in the last year or 1 fall with injury or currently using an Ambulatory Assistive Device (Walker, Cane, Wheelchair, Crutches, etc.)? No PATIENT GENDER DATA: Female. status: : No status: NO. ALLERGIES: Reviewed and unchanged CONTRAST ALLERGY: No EXAM: CT -CONTRAST INDUCED NEPHROPATHY RISK FACTORS: Not applicable CREATININE: Creatinine Date Value Ref Range Status 10/31/2022 0.71 0.58 - 0.96 mg/dL Final Estimated Glomerular Filtration Rate Date Value Ref Range Status 10/31/2022 102 >=60 mL/min/1.73m Final Comment: Estimated Glomerular Filtration Rate (eGFR) is calculated using the 2020 CKD-EPI creatinine equation. This equation utilizes serum creatinine, sex, and age as parameters. The creatinine assay has traceable calibration to isotope dilution-mass spectrometry. Refer to KDIGO guidelines for clinical interpretation. In patients with unstable renal function, e.g. those with acute kidney injury, the eGFR may not accurately reflect actual GFR. P.O.C.T. RESULTS: N/A December 14, 2022 TREATMENT: N/A and No Hydration needed. IV SITE: Ambulatory: A peripheral IV was started in the Right forearm with a Angio cath: 20 gauge. and A Saline lock was inserted per protocol IV SITE APPEARANCE: Clean,Dry and Intact SIGNATURE: Curtis Estrella RN PATIENT NAME: Clive Cardoza DATE: December 14, 2022 TIME: 8:08 AM documented in this encounter [facility] 12-07-2022 Note [facility] 12-07-2022 Nurse Note Left drain removed. Dry sterile dressing applied. Vinh Stauffer RN December 07, 2022 11:17 AM Additional intake questions: Has the patient had fever, nausea, vomiting, diarrhea, constipation, fatigue for > 1 week? No Does the patient have a decreased appetite? No Does patient want to see a Truck Despatcher? No (yes to any of above refer patient to schedulers for dietitian appointment) ) Does patient have any new or increased numbness or tingling of extremities? New onset of numbness in the right pointer finger-comes and goes Is patient interested in fertility information? No Does patient need any prescription refills? No Does patient have an advanced directive in place? No documented in this encounter [facility] 12-07-2022 History of Present illness Narrative BREAST SURGERY POST OPERATIVE FOLLOW-UP SERVICE DATE: 12/07/2022 SURGERY DATE: 11/24/22 SUBJECTIVE: Clive Cardoza is a 51 year old female with a history of long covid, depression, anxiety. Family history of breast cancer in [facility] (dx in her early 50s), no family hx of ovarian cancer. She presented for an evaluation of a new right breast 10:00 at least 2.4 cm int-poor diff invasive lobular ca with LCIS, ER+ (>95%), WV+ (>95%), HER2- (1+). Innumerable masses throughout the right breast. There is additional Lt breast 2.5 cm NME suspicious for malignancy. No axillary or internal mammary LAD noted on MRI. Biopsy of the Lt breast returned PASH, sclerotic fibrous stroma, sclerosing adenosis, DISCORDANT. She is now s/p b/l TM wo recon, b/l SLNB on 11/24/22. Final path showing Rt breast pT3N1a, superior radial margin focal 1.5 mm ILC but additional submitted superior/anterior margin overlying tumor was negative for carcinoma. pT3N1a. 1 SLN w/macromets, 1 SLN micromets, 5 SLN neg ca (2/7). No carcinoma in the Lt breast and 0/1 Lt axlilary SLN. She presents for drain and incision check. 12/07/22 Ms. Cardoza's Rt drain was removed on 12/02/22. Lt drain has since put out < 30 cc for past 2 days. She notes concerns with left side incision possible bleeding from incision. Notices a sharp pain near medial portion of incision when laughing too hard. REVIEW OF SYSTEMS: GENERAL: No weight loss, malaise or fevers NECK: Negative for lumps, goiter, pain and significant neck swelling RESPIRATORY: Negative for cough, hemoptysis, wheezing, COPD, dyspnea or shortness of breath CARDIOVASCULAR: Negative for chest pain, leg swelling, hypertension, CHF or palpitations GI: No nausea, vomiting, or diarrhea : No history of dysuria, frequency or incontinence GIRLS TENNIS COACH: Negative for abnormal vaginal bleeding, abnormal vaginal discharge MUSCULOSKELETAL: Negative for joint pain or swelling, back pain or muscle pain SKIN: Negative for lesions, rash, and itching HEMATOLOGY/LYMPHOLOGY: Negative for prolonged bleeding, bruising easily or swollen nodes ENDOCRINE: Negative for cold or heat intolerance, polyuria, polydipsia and goiter OBJECTIVE: PHYSICAL EXAM: BP 144/79 Pulse 80 Resp 18 SpO2 99% There is no height or weight on file to calculate BMI. No Complaints. GENERAL:well-nourished, healthy, alert and oriented x 3, calm SKIN:warm, dry, skin color, texture, turgor normal NECK: supple, symmetrical, no thyromegaly MUSCULOSKELETAL: No observed limitations in range of motion of upper extremities. BREASTS: The Patient was examined in the upright and supine positions. LEFT BREAST: Left breast mid-lateral incision with small amount of s/s fluid noted on gauze. No underlying fluctuance, erythema, mass. No purulence. Incision is approximated without dehiscence. RIGHT BREAST: Surgical incision c/d/I with surgical glue and no erythema. No underlying fluid collection. ASSESSMENT: (C50.811, Z17.0) Malignant neoplasm of overlapping sites of right breast in female, estrogen receptor positive (HCC) (primary encounter diagnosis) Clive Cardoza is a 51 year old female with a history of long covid, depression, anxiety. Family history of breast cancer in [facility] (dx in her early 50s), no family hx of ovarian cancer. She presented for an evaluation of a new right breast 10:00 at least 2.4 cm int-poor diff invasive lobular ca with LCIS, ER+ (>95%), WV+ (>95%), HER2- (1+). Innumerable masses throughout the right breast. There is additional Lt breast 2.5 cm NME suspicious for malignancy. No axillary or internal mammary LAD noted on MRI. Biopsy of the Lt breast returned PASH, sclerotic fibrous stroma, sclerosing adenosis, DISCORDANT. She is now s/p b/l TM wo recon, b/l SLNB on 11/24/22. Final path showing Rt breast pT3N1a, superior radial margin focal 1.5 mm ILC but additional submitted superior/anterior margin overlying tumor was negative for carcinoma. pT3N1a. 1 SLN w/macromets, 1 SLN micromets, 5 SLN neg ca (2/). No carcinoma in the Lt breast and 0/1 Lt axlilary SLN. PLAN: Continue with previously scheduled consults. Lt drain removed Left incision surgical glue re-applied to the mid-lateral portion of incision. Continue f/u in 3 months from surgery Provided breast PT script and prosthetic fitting for after 4 weeks from surgery All questions were answered; patient has no further concerns. Messi Manley MD documented in this encounter [facility] 12-05-2022 Miscellaneous Notes Oncotype ordered at the request of DR. Ryan, via [employer] web portal. All required documents uploaded with order. documented in this encounter [facility] 12-02-2022 Note [facility] 12-02-2022 Instructions Get Ryan MD - 12/02/2022 4:47 PM EDT Please schedule CT FIRST AVAILABLE CT SCHEDULING QUESTIONNAIRE Is the patient 60 or older or does the patient have diabetes or a history of kidney disease other than stones? No Hydration: No Is the associated diagnosis or reason for exam Peritoneal Dialysis, Prerenal Transplant, Triphasic Liver or AAA (Abdominal Aoritc Aneurism) or anything with Adrenals or does the order indicate Liver Exam, Kidney Exam or Urogram? No Is there any possibility the patient may be ? No documented in this encounter [facility] 12-02-2022 Note [facility] 12-02-2022 History of Present illness Narrative [facility] SOLID TUMOR ONCOLOGY PROGRESS NOTE PATIENT NAME: Clive Cardoza DATE: December 02, 2022 PHYSICIAN: Riya Ryan MD Some elements of all sections below were copied from my previous note of 10/19/22 and have been re-examined and updated where appropriate. All elements reflect the medical decision making of today, 12/02/2022. PATIENT ID: Clive Cardoza is a 52 year old woman seen post-operatively for breast cancer. HISTORY OF THE PRESENT ILLNESS: Ms. Clive Cardoza says that a lesion in the upper outer quadrant of the right breast was previously noted and followed. Screening mammograms performed at [facility] on 09/13/22 showed extremely dense breasts. Architectural distortion in the upper portion of the right breast was sen as well as 2 focal nodules in the left breast. Bilateral diagnostic mammograms performed 09/16/22 at [facility] on 09/16/22 were read locally as showing a large spiculated mass in the upper outer quadrant of the right breast. In the left breast spot magnification views showed several asymmetries in the lower inner and upper inner quadrants. Bilateral breast ultrasound showed a 2.4 cm mass at 10:00 o'clock in the right breast as well as several non-specific small oval masses. A 0.8 cm hmass was seen at the 7:00 o'clock position of the left breast. 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 The invasive cancer measured 1.3 cm in the core biopsy and was strongly ER+ in >95% of cells, strongly WV+ in >95% of cells, and HER2 negative (1+ by IHC). Biopsy of a left breast lesion performed 09/29/22 showed intraductal papilloma with apocrine metaplasia. She had no symptoms suggestive of metastatic disease. INTERVAL HISTORY: Breast MRI done 10/19/22 showed multiple enhancing masses in the right breast as well as an area of non-mass enhancement in the left breast breast. MRI-guided biopsy of the left breast performed 10/21/22 showed PASH and other benign changes. Because of concerns about treatment delay, she was started on anastrozole on 10/25/22. Ms. So underwent bilateral mastectomy and bilateral sentinel node biopsies on 11/24/22. Pathology from that procedure showed: Left breast: Focal atypical ductal hyperplasia with unremarkable fiboradipose tissue in the SLN specimen. Right breast: Multiple foci of invasive lobular carcinoma with focal pleomorphic features, grade 2. the largest mass was 64 mm, with at least two other foci measuring 1-2 mm in size. Two (2) of 8 sentinel + other axillary nodes were involved by macrometastases measuring up to 7 mm without extranodal extension. The initial superior margin was involved by invasive cancer, but an additional superior margin specimen was negative. Angiolymphatic invasion was not seen. TREATMENT SUMMARY: Bilateral mastectomy, L SLN, R SLN + ax sampling 11/24/22 PHYSICAL EXAM: There were no vitals taken for this visit. There is no height or weight on file to calculate BSA. Clive Fragoso I a very pleasant 52 year old woman accompanied by her . Performance Status=0. HEENT-no palpable cervical adenopathy. Pulmonary-lungs are clear to ausculation. Cardiac-regular rate and rhythm. Breast and Chest Wall-bilateral mastectomies without reconstruction. Abdomen-no organomegaly, mass, or tenderness. Extremities-no arm edema. Skin-no rash. Neuro-grossly intact. LABORATORY: none today IMAGING: none this visit. IMPRESSION: Clive Cardoza is a 52 year old woman s/p bilateral mastectomy and right alnd for pathologic stage [id number] ER+, WV+, HER2-negative invasive lobular carcinoma with pleomorphic features. Cancer Staging Invasive lobular carcinoma of breast in female (HCC) Staging form: Breast, AJCC 8th Edition - Pathologic: Stage IB (pT3, pN1a, cM0, G2, ER+, WV+, HER2-) - Unsigned PLAN: The situation was reviewed and discussed. -I recommended treatment with anastrozole + abemaciclib as a mainstay of therapy, and recommended zoledronic as well. -A mutual decision was made to send her tumor biopsy specimen for Oncotype Dx testing. -I will see her in 2-3 weeks, but she will call the day before to be sure the Recurrence Score is back. I spent a total of 35 minutes on the date of the service which included preparing to see the patient, [id number] patient care, completing clinical documentation, obtaining and/or reviewing separately obtained history, performing a medically appropriate examination, counseling and educating the patient/family/caregiver, ordering medications, tests, or procedures, communicating with other HCPs (not separately reported), independently interpreting results (not separately reported), communicating results to the patient/family/caregiver, and care coordination (not separately reported). Riya Ryan MD cc: Nimisha Retana MD Trevin Mason MD documented in this encounter [facility] 12-02-2022 Note [facility] 12-02-2022 Nurse Note Changed dressing on left drain. Patient to call when drain output<30ml x 2 days. Provided patient with order for breast rehab with number to call to schedule. Provided patient with prescription for mastectomy bras and prosthesis. Vihn Stauffer RN December 02, 2022 3:20 PM Additional intake questions: Has the patient had fever, nausea, vomiting, diarrhea, constipation, fatigue for > 1 week? No Does the patient have a decreased appetite? No Does patient want to see a Truck Despatcher? No (yes to any of above refer patient to schedulers for dietitian appointment) ) Does patient have any new or increased numbness or tingling of extremities? No Is patient interested in fertility information? No Does patient need any prescription refills? No Does patient have an advanced directive in place? No documented in this encounter [facility] 12-02-2022 Miscellaneous Notes Addended by: VINH STAUFFER on: 12/02/2022 02:24 PM Modules accepted: Orders documented in this encounter [facility] 12-02-2022 History of Present illness Narrative BREAST SURGERY POST OPERATIVE FOLLOW-UP #1 SERVICE DATE: 12/02/2022 SURGERY DATE: 11/24/22 SUBJECTIVE: Clive Cardoza is a 51 year old female with a history of long covid, depression, anxiety. Family history of breast cancer in [facility] (dx in her early 50s), no family hx of ovarian cancer. She presented for an evaluation of a new right breast 10:00 at least 2.4 cm int-poor diff invasive lobular ca with LCIS, ER+ (>95%), WV+ (>95%), HER2- (1+). Innumerable masses throughout the right breast. There is additional Lt breast 2.5 cm NME suspicious for malignancy, pending MRI bx. No axillary or internal mammary LAD noted on MRI. Biopsy of the Lt breast returned PASH, sclerotic fibrous stroma, sclerosing adenosis, DISCORDANT. Following discussion with Ms. Cardoza, the decision was made to proceed with TM wo/reconstruction and b/l SLNB. She is now s/p b/l TM wo recon, b/l SLNB on 11/24/22. Final path showing Rt breast pT3N1a, superior radial margin focal 1.5 mm ILC but additional submitted superior/anterior margin overlying tumor was negative for carcinoma. pT3N1a. 1 SLN w/macromets, 1 SLN micromets, 5 SLN neg ca (2/7). No carcinoma in the Lt breast and 0/1 Lt axlilary SLN. She denies any signs of infection such as fever, chills, redness, or drainage. Her pain is well controlled with Oxycodone, Tylenol, and Advil. She is able to perform her daily activities without any difficulties. She is eating and drinking well. Endorses regular bowel movements. SURGICAL PATHOLOGY: Component FINAL DIAGNOSIS A. Right axillary sentinel lymph node, #1, excision: - Unremarkable fibroadipose tissue. B. Left breast, mastectomy: - Focal atypical ductal hyperplasia. - Focal atypical lobular hyperplasia. - Breast tissue with stromal fibrosis, microcysts, apocrine metaplasia, sclerosing adenosis, usual ductal hyperplasia and microcalcifications. - Biopsy site change and 1 biopsy clip identified. - Unremarkable nipple. C. Right breast, mastectomy: - Multiple foci of invasive lobular carcinoma with focal pleomorphic features, Alejandro grade 2, measuring 64 mm in greatest dimension (see synoptic report and comment) - Lobular carcinoma in situ/atypical lobular hyperplasia. - Biopsy site change and 1 biopsy clip identified. - Unremarkable skin. D. Right breast, new superior anterior lateral margin, excision: - Negative for carcinoma. E. Right axillary sentinel lymph node, #2, excision: - 1 lymph node with macrometastatic carcinoma (1/1) F. Right axillary sentinel lymph node, #3, excision: - 1 lymph node with micrometastatic carcinoma (1/1). G. Left axillary sentinel lymph node #1, excision: - 1 lymph node, negative for metastatic carcinoma (0/1). H. Right axillary sentinel lymph node, #4, excision: - Two lymph nodes, negative for metastatic carcinoma (0/2). I. Right sentinel lymph node, #5, excision: - 1 lymph node, negative for metastatic carcinoma (0/1). J. Right axillary sentinel lymph node, #6, excision: - 1 lymph node, negative for metastatic carcinoma (0/1). K. Right axillary sentinel lymph node, #7, excision: - 1 lymph node, negative for metastatic carcinoma (0/1). Diagnosis Comment C and D. Adjacent to the main mass, there are multiple small foci of invasive lobular carcinoma measuring 1-2 mm in greatest dimension. Superior radial margin is focally involved by invasive carcinoma (slide C7, spanning 1.5 mm), but additional superior margin is negative in part D. E and F: Immunohistochemical stains for cytokeratin AE1/3 highlight the carcinoma cells. Laboratory Developed Test (LDT) Disclaimer: Performance characteristics of immunohistochemical, immunofluorescent and chromogenic in-situ hybridization tests have been determined by the performing laboratory within [facility] [place] ([facility], [facility], [facility], [facility], [facility], or [facility]) in a manner consistent with CLIA requirements. One or more of these tests have not been cleared or approved by the FDA. [facility] is regulated under CLIA as qualified to perform high-complexity testing. These tests are used for clinical purposes. They should not be regarded as investigational or for research. Positive and negative controls stain appropriately. Synoptic Report INVASIVE CARCINOMA OF THE BREAST: Resection 8th Edition - Protocol posted: 04/13/2022 INVASIVE CARCINOMA OF THE BREAST: EXCISION - All Specimens SPECIMEN Procedure Total mastectomy Specimen Laterality Right TUMOR Tumor Site Upper outer quadrant Histologic Type Invasive lobular carcinoma Histologic Grade ([place] Histologic Score) Glandular (Acinar) / Tubular Differentiation Score 3 Nuclear Pleomorphism Score 2 Mitotic Rate Score 1 Overall Grade Grade 2 (scores of 6 or 7) Tumor Size Greatest dimension of largest invasive focus (Millimeters): 64 mm Tumor Focality Multiple foci of invasive carcinoma Number of Foci At least: 3 Sizes of Individual Foci in Millimeters (mm) 64, 2, 1.5 Ductal Carcinoma In Situ (DCIS) Not identified Lymphatic and / or Vascular Invasion Not identified Treatment Effect in the Breast No known presurgical therapy MARGINS Margin Status for Invasive Carcinoma All margins negative for invasive carcinoma Distance from Invasive Carcinoma to Closest Margin Greater than: 12 mm Closest Margin(s) to Invasive Carcinoma radial superior margin REGIONAL LYMPH NODES Regional Lymph Node Status Tumor present in regional lymph node(s) Number of Lymph Nodes with Macrometastases 1 Number of Lymph Nodes with Micrometastases 1 Size of Largest Alvaro Metastatic Deposit 7 mm Extranodal Extension Not identified Total Number of Lymph Nodes Examined (sentinel and non-sentinel) 7 Number of Vanleer Nodes Examined 7 pTNM CLASSIFICATION (AJCC 8th Edition) Reporting of pT, pN, and (when applicable) pM categories is based on information available to the pathologist at the time the report is issued. As per the AJCC (Chapter 1, 8th Ed.) it is the managing physician s responsibility to establish the final pathologic stage based upon all pertinent information, including but potentially not limited to this pathology report. pT Category pT3 T Suffix (m) pN Category pN1a SPECIAL STUDIES Estrogen Receptor (ER) Status Positive (greater than 10% of cells demonstrate nuclear positivity) Percentage of Cells with Nuclear Positivity 91-100% Progesterone Receptor (PgR) Status Positive Percentage of Cells with Nuclear Positivity 91-100% HER2 (by immunohistochemistry) Negative (Score 1+) Comment(s) Library Consultant blocks C1, C2 and C3 REVIEW OF SYSTEMS: GENERAL: No weight loss, malaise or fevers NECK: Negative for lumps, goiter, pain and significant neck swelling RESPIRATORY: Negative for cough, hemoptysis, wheezing, COPD, dyspnea or shortness of breath CARDIOVASCULAR: Negative for chest pain, leg swelling, hypertension, CHF or palpitations GI: No nausea, vomiting, or diarrhea : No history of dysuria, frequency or incontinence GIRLS TENNIS COACH: Negative for abnormal vaginal bleeding, abnormal vaginal discharge MUSCULOSKELETAL: Negative for joint pain or swelling, back pain or muscle pain SKIN: Negative for lesions, rash, and itching HEMATOLOGY/LYMPHOLOGY: Negative for prolonged bleeding, bruising easily or swollen nodes ENDOCRINE: Negative for cold or heat intolerance, polyuria, polydipsia and goiter OBJECTIVE: PHYSICAL EXAM: BP 130/65 Pulse 101 Resp 20 Wt 83 kg (182 lb 14.4 oz) SpO2 99% BMI 29.52 kg/m Body mass index is 29.52 kg/m . Incision(s) healing without signs of infection. GENERAL:well-nourished, healthy, alert and oriented x 3, calm SKIN:warm, dry, skin color, texture, turgor normal MUSCULOSKELETAL: No observed limitations in range of motion of upper extremities. BREASTS: The Patient was examined in the upright and supine positions. LEFT BREAST: Surgically absent RIGHT BREAST: Surgically absent Assessment ASSESSMENT: (C50.811, Z17.0) Malignant neoplasm of overlapping sites of right breast in female, estrogen receptor positive (HCC) (primary encounter diagnosis) Clive Cardoza is a 51 year old female with a history of long covid, depression, anxiety. Family history of breast cancer in [facility] (dx in her early 50s), no family hx of ovarian cancer. She presented for an evaluation of a new right breast 10:00 at least 2.4 cm int-poor diff invasive lobular ca with LCIS, ER+ (>95%), WV+ (>95%), HER2- (1+). Innumerable masses throughout the right breast. There is additional Lt breast 2.5 cm NME suspicious for malignancy, pending MRI bx. No axillary or internal mammary LAD noted on MRI. Biopsy of the Lt breast returned PASH, sclerotic fibrous stroma, sclerosing adenosis, DISCORDANT. Following discussion with Britany Cardoza, the decision was made to proceed with TM wo/reconstruction and b/l SLNB. She is now s/p b/l TM wo recon, b/l SLNB on 11/24/22. Final path showing Rt breast pT3N1a, superior radial margin focal 1.5 mm ILC but additional submitted superior/anterior margin overlying tumor was negative for carcinoma. pT3N1a. 1 SLN w/macromets, 1 SLN micromets, 5 SLN neg ca (06/07). No carcinoma in the Lt breast and 0/1 Lt axlilary SLN. PATHOLOGIC STAGE: Rt breast pT3N1a, Lt breast no ca PLAN: Continue with previously scheduled consults - patient to see rad onc and med onc for adjuvant treatments The JEROME drain site was assessed. Verified with the patient that there was <30ml drainage per day over the past 48 hours on the Rt side. Drain was removed as ordered and patient tolerated well. Dressing was applied. Patient instructed on wound care and verbalized understanding. The L drain remains in place and will likely be removed next week, possibly Monday Breast PT 4 weeks after surgery Breast prosthesis 4 weeks after surgery All questions were answered; patient has no further concerns. Attending Note: I have personally performed a face to face assessment of this Patient, which included an interview, physical exam, and discussion of the Breast Imaging, Assessment and Plan. I have reviewed and confirmed the history and sánchez findings as documented by the resident and edited as appropriate. Messi Manley MD documented in this encounter [facility] 12-02-2022 Nurse Note Reviewed and confirmed with patient that there were no changes in the the nursing assessment and vitals that were completed on 12/02/2022 during previous provider appointment. Siobhan Glover MA documented in this encounter [facility] 11-29-2022 Miscellaneous Notes Patient called/sent email asking about changing drain dressing. Explained that Dr Manley's team will change dressing if drain is not pulled at post op appt 12/02. Patient states she has a cut at back of right axilla. Asked patient to take a picture and send through [email or web address]. Patient states will take photo. States it is healing well. Let patient know she will see Dr Ryan on 12/02 at 4pm. Patient states understanding. Vinh Stauffer RN November 29, 2022 1:27 PM documented in this encounter [facility] 11-25-2022 Note [facility] 11-24-2022 Note [facility] 11-23-2022 Note [facility] 11-16-2022 Note [facility] 11-16-2022 History of Present illness Narrative Telephone FOLLOW UP HPI: Clive Cardoza is a 51 year old female with a history of long covid, depression, anxiety. Family history of breast cancer in [facility] (dx in her early 50s), no family hx of ovarian cancer. She presented for an evaluation of a new right breast 10:00 at least 2.4 cm int-poor diff invasive lobular ca with LCIS, ER+ (>95%), WV+ (>95%), HER2- (1+). Innumerable masses throughout the right breast. There is additional Lt breast 2.5 cm NME suspicious for malignancy, pending MRI bx. No axillary or internal mammary LAD noted on MRI. Biopsy of the Lt breast returned PASH, sclerotic fibrous stroma, sclerosing adenosis, DISCORDANT. Following discussion with Ms. Cardoza on 10/28/22, the decision was made to proceed with bilateral SSM w/reconstruction. Discussed we would plan for a Right SLNB and left SLNB. In the interim, Ms. Cardoza has decided to proceed with bilateral TM w/o reconstruction. She has had time to reflect based on her priorities, her current experience with her cousin who also has breast cancer and underwent reconstruction, and based on other breast cancer patient experiences. PAST MEDICAL HISTORY: PAST MEDICAL HISTORY Diagnosis Date Anxiety and depression Breast cancer (HCC) 09/29/2022 SURGICAL HISTORY: PAST SURGICAL HISTORY Procedure Laterality Date VAGINAL HYSTERECTOMY Bilateral 2013 and BSO SOCIAL HISTORY: Social History Socioeconomic History Marital status: Tobacco Use Smoking status: Former Packs/day: 0.25 Years: 15.00 Total pack years: 3.75 Types: Cigarettes Quit date: 1999 Years since quittin.5 Smokeless tobacco: Never Substance and Sexual Activity Drug use: Yes Types: Marijuana CURRENT MEDICATIONS: Current Outpatient Medications Medication Instructions ALPRAZolam (XANAX) 0.5 mg, ORAL, 2 TIMES DAILY anastrozole (ARIMIDEX) 1 mg, ORAL, DAILY buPROPion SR (ZYBAN SR; WELLBUTRIN SR) 150 mg, ORAL, DAILY fexofenadine HCl (MONICA 60 MG CAP) 1 tablet, ORAL, DAILY REVIEW OF SYSTEMS: GENERAL: No weight loss, malaise or fevers NECK: Negative for lumps, goiter, pain and significant neck swelling RESPIRATORY: Negative for cough, hemoptysis, wheezing, COPD, dyspnea or shortness of breath CARDIOVASCULAR: Negative for chest pain, leg swelling, hypertension, CHF or palpitations GI: No nausea, vomiting, or diarrhea : No history of dysuria, frequency or incontinence GIRLS TENNIS COACH: Negative for abnormal vaginal bleeding, abnormal vaginal discharge MUSCULOSKELETAL: Negative for joint pain or swelling, back pain or muscle pain SKIN: Negative for lesions, rash, and itching HEMATOLOGY/LYMPHOLOGY: Negative for prolonged bleeding, bruising easily or swollen nodes ENDOCRINE: Negative for cold or heat intolerance, polyuria, polydipsia and goiter PHYSICAL EXAM: There were no vitals taken for this visit. There is no height or weight on file to calculate BMI. Deferred due to nature of telephone visit IMAGING TO DATE: NA PATHOLOGY: NA ASSESSMENT: (C50.811, Z17.0) Malignant neoplasm of overlapping sites of right breast in female, estrogen receptor positive (HCC) (primary encounter diagnosis) Clive Cardoza is a 51 year old female with a history of long covid, depression, anxiety. Family history of breast cancer in [place] (dx in her early 50s), no family hx of ovarian cancer. She presented for an evaluation of a new right breast 10:00 at least 2.4 cm int-poor diff invasive lobular ca with LCIS, ER+ (>95%), WV+ (>95%), HER2- (1+). Innumerable masses throughout the right breast. There is additional Lt breast 2.5 cm NME suspicious for malignancy, pending MRI bx. No axillary or internal mammary LAD noted on MRI. Biopsy of the Lt breast returned PASH, sclerotic fibrous stroma, sclerosing adenosis, DISCORDANT. Initially, Ms. Cardoza was considering bilateral SSM; however, after further reflection, she has decided to undergo TM w/o reconstruction in order to decrease the potential need for additional surgery, based on her cousin's experience with reconstruction, and based on other breast cancer patient experiences. Discussed with Ms. Cardoza that we would still plan on bilateral sentinel lymph node biopsy. Discussed possibility of excess tissue medially and laterally s/p procedure. PLAN: Resend consent Proceed with OR as planned Will notify Dr. Reno's team I spent a total of 15 minutes on the date of the service which included preparing to see the patient, [id number] patient care, completing clinical documentation, performing a medically appropriate examination, counseling and educating the patient/family/caregiver, and care coordination (not separately reported). Patient consented for telephone visit documented in this encounter [facility] 11-14-2022 Miscellaneous Notes FMLA (Spouse) completed for Dr. Reno RTW: Continuous: 11/23/2022 - 12/01/82013 Intermittent: 12/02/2022 - 01/06/2023 documented in this encounter [facility] 11-14-2022 Miscellaneous Notes FMLA completed for Dr. Reno RTW: 01/07/2023 Faxed successfully and copy scanned into chart. documented in this encounter [facility] 10-31-2022 Note HNO ID: [id number] Author: Disha Mena (Photo) Service: ? Author Type: ? Type: Progress Notes Filed: 10/31/2022 2:50 PM Note Text: DATE OF PHOTOS: 10/31/2022 Body Part: Breasts Dishaara Mena (Photo) October 31, 2022 2:50 PM [facility] 10-31-2022 Note [facility] 10-31-2022 History of Present illness Narrative DATE OF PHOTOS: 10/31/2022 Body Part: Breasts Disha Mena (Photo) October 31, 2022 2:50 PM documented in this encounter [facility] 10-28-2022 Note [facility] 10-21-2022 Note [facility] 10-21-2022 History of Present illness Narrative Radiology Service Progress Note DATE OF SERVICE: October 21, 2022 TIME: 1:04 PM PATIENT IDENTITY VERIFICATION COMPLETED USING TWO (2) STANDARD IDENTIFIERS: Name and Date of confirmed by patient verbally. FALL SCREENING: Has the patient had 2 falls in the last year or 1 fall with injury or currently using an Ambulatory Assistive Device (Walker, Cane, Wheelchair, Crutches, etc.)? No PATIENT GENDER DATA: Female. status: : No status: NO. PATIENT RELEVANT IMPLANT DATA REVIEWED: Yes ALLERGIES: Reviewed and unchanged CONTRAST ALLERGY: NO. EXAM: MRI - CONTRAST TYPE: GROUP II PERIPHERAL IV DATA: Ambulatory: A peripheral IV was started in the Left antecubital site with a Angio cath: 22 gauge. RADIOLOGY DEPARTMENT: MR; Exam(s) Completed: Chest: MRI Left Breast BX SIGNATURE: RT Sunil(R) PATIENT NAME: Clive Cardoza DATE: October 21, 2022 TIME: 1:04 PM documented in this encounter [facility] 10-20-2022 Note [facility] 10-20-2022 Note [facility] 10-20-2022 History of Present illness Narrative AMBULATORY PATIENT EDUCATION NOTE TOPIC: SURVIVAL SKILLS: Complication Prevention Pain Management Wound Care READINESS TO LEARN COGNITIVE ABILITY: Alert and oriented MOTIVATION TO LEARN: Eager FAMILY SUPPORT: High - Very involved in pt care INSTRUCTION PROVIDED TO: Patient and family member PATIENT LEARNS BEST BY: Unable to Assess FACTORS AFFECTING LEARNING: None PHYSICAL LIMITATIONS AFFECTING LEARNING: None LEARNING RESPONSE DIAGNOSIS: breast cancer METHOD OF INSTRUCTION: Individual instruction Written instruction - handouts Verbal instruction Demonstration-Hands on Learning Video PATIENT / FAMILY RESPONSE: Verbalizes understanding of: DRAIN CARE- Correct procedure to perform drain care PAIN MANAGEMENT-Effective strategies to manage pain in addition to pain medication POST-OPERATIVE INSTRUCTIONS-Correct actions to take to reduce postoperative complications PRE-OPERATIVE INSTRUCTIONS-Correct action to take to follow pre-operative instructions PATIENT SAFETY PRINCIPLES WORSENING CONDITION-Signs and symptoms of a worsening condition that warrant a call to the physician WOUND CARE-Correct procedure to perform wound care FOLLOW-UP PLAN: Complete - No need for follow-up Patient instructed to call with any further issues SUPPLEMENTAL MATERIAL: Your Surgical Guide REFERRAL (RECOMMENDATION): None Hibiclens 4 ounce bottle given to patient with instruction. Electronically Signed By: Vinh Stauffer RN In Department: HEMATOLOGY/ONCOLOGY Time spent on patient education: 30 minutes. documented in this encounter [facility] 10-20-2022 Nurse Note Additional intake questions: Has the patient had fever, nausea, vomiting, diarrhea, constipation, fatigue for > 1 week? No Does the patient have a decreased appetite? Yes, decreased since all this has started (has lost about 15-17 pounds) Does patient want to see a Truck Despatcher? No (yes to any of above refer patient to schedulers for dietitian appointment) ) Does patient have any new or increased numbness or tingling of extremities? No Is patient interested in fertility information? No Does patient need any prescription refills? No Does patient have an advanced directive in place? No documented in this encounter [facility] 10-20-2022 History of Present illness Narrative NEW BREAST CANCER - INITIAL SURGICAL VISIT SERVICE DATE: 10/20/2022 REFERRING PROVIDER: No referring provider defined for this encounter. Consult requested for an opinion regarding the evaluation and treatment of breast cancer. My final impression and recommendations will be communicated back to the requesting physician by way of the shared medical record or letter via US mail. SUBJECTIVE: REASON FOR TODAY'S VISIT: Breast Cancer Evaluation HISTORY of PRESENT ILLNESS: Clive Cardoza is a 51 year old female with a history of long covid, depression, anxiety. Family history of breast cancer in [facility] (dx in her early 50s), no family hx of ovarian cancer. She presents for an evaluation of a new right breast 10:00 at least 2.4 cm int-poor diff invasive lobular ca with LCIS, ER+ (>95%), WV+ (>95%), HER2- (1+). Innumerable masses throughout the right breast. There is additional Lt breast 2.5 cm NME suspicious for malignancy, pending MRI bx. No axillary or internal mammary LAD noted on MRI. Staging pending further work up. Screening MMG 09/13/2022 ([facility] review): heterogeneously dense breast tissue bilaterally. There is a region of prominent architectural distortion in the UOQ of the right breast. Oval mass seen in the left breast central to the nipple. Scattered calcs seen throughout both breasts. Bilateral diag MMG 09/16/2022 ([facility] review): Redemonstration of right UOQ architectural distortion with indeterminate punctate calcs medial to the irregular mass on CC. Bilateral targeted breast US 09/16/2022 ([facility] review): 2.4 x 1.9 x 1.8 cm irregular mass in the right breast at 10:00 4 cmFN which c/w MMG findings. A few additional small oval hypoechoic masses seen in right breast. Left breast 0.9 x 0.8 x 0.8 cm oval mass at 7:00 which corresponds with MMG findings. No images of bilateral axillae. US-guided CNBx x 2 09/29/2022 ([facility]): 1. Right breast 10:00 4 cmFN: int-poor diff invasive lobular ca, pleomorphic type, ER+/WV+/HER2- with LCIS. HM coil clip placed. 2. Left breast 7:00: intraductal papilloma Breast MRI 10/19/2022 ([facility]): Right Breast: - Innumerable enhancing irregular and oval masses throughout the right breast, more confluent in the upper outer and lower outer quadrants. There is associated bx marker clip in the UOQ of the Rt breast at site of bx-proven ILC. No dermal or pectoralis involvement noted. Left Breast: - 2.5 cm area of NME 1:00 mid depth. - 0.8 cm lobulated mass with a smooth margin in the Lt breast 10:00 post depth. Correlates with MMG findings and stable since 2019, likely fibroadenoma. - No enhancing mass is identified in the Lt breast 6:00, at site of bx-proven papilloma Lymph Nodes: - No axillary or internal mammary LAD (either side) Genetic testing: none prior Patient denies any other masses, skin changes/thickening, dimpling, breast pain, nipple discharge, or nipple inversion of either breast. HISTORY OF BREAST PROCEDURE(S): No prior history of breast biopsies or procedures Total Clips: RIGHT- 1, LEFT-1 HM coil clip: Right breast 10:00 4 cmFN- int-poor diff invasive lobular ca, ER+/WV+/HER2- with LCIS HM coil clip: left breast 7:00- intraductal papilloma PAST MEDICAL HISTORY: PAST MEDICAL HISTORY Diagnosis Date Anxiety and depression Breast cancer (HCC) 09/29/2022 No DM, CVA, PR, renal, hepatic, pulmonary disease/dysfunction. Can walk more than a mile without becoming short of breath. Patient would accept a blood transfusion if necessary. PAST SURGICAL HISTORY: PAST SURGICAL HISTORY Procedure Laterality Date VAGINAL HYSTERECTOMY Bilateral 2013 and BSO OBSTETRIC RELATED HISTORY: G 3, P 3 Age at the of first child: 14 years of age. She did breast feed. No LMP recorded. Patient has had a hysterectomy. Age at the onset of menses: 9 years of age. Age at menopause: 42 years of age. Surgical s/p ROBERTA BSO. Hormonal therapy: She took estradiol for HRT from [id number]. FAMILY HISTORY: FAMILY HISTORY Problem Relation Age of Onset Lung Cancer Maternal Grandfather Prostate Cancer Paternal Grandfather dx in his 70s Cancer Paternal Aunt primary not known to the patient other (bone cancer) Paternal Uncle other (jaw cancer) Paternal cousin Breast Cancer Maternal cousin dx in her early 50s No history of , ovarian cancer, colon cancer, or pancreatic cancer. Ashkenazi Ancestry: unsure SOCIAL HISTORY: Social History Tobacco Use Smoking status: Former Packs/day: 0.25 Years: 15.00 Pack years: 3.75 Types: Cigarettes Quit date: 1999 Years since quittin.4 Smokeless tobacco: Never Substance Use Topics Drug use: Yes Types: Marijuana There is no problem list on file for this patient. 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 iv contrast (will be provided with radiology test) MRI LT Breast Bx Inject, intravenously, once for 1 dose. No IV access, insert saline lock prior to the beginning of sedation, infusion, injection of imaging exam. Discontinue saline lock post exam. If Pt has a central line or IVAD, may access for administration according to line specific nursing protocol. Once exam is complete flush line and de-access according to line specific nursing protocol in the MR contrast administration guidelines link buPROPion SR (ZYBAN SR; WELLBUTRIN SR) 150 mg 12 hr tablet Take 150 mg by mouth once daily. fexofenadine HCl (MONICA 60 MG CAP) Take 1 tablet by mouth once daily. ALLERGIES: ALLERGIES No Known Allergies REVIEW OF SYSTEMS: GENERAL: No weight loss, malaise or fevers NECK: Negative for lumps, goiter, pain and significant neck swelling RESPIRATORY: Negative for cough, hemoptysis, wheezing, COPD, dyspnea or shortness of breath CARDIOVASCULAR: Negative for chest pain, leg swelling, hypertension, CHF or palpitations GI: No nausea, vomiting, or diarrhea : No history of dysuria, frequency or incontinence GIRLS TENNIS COACH: Negative for abnormal vaginal bleeding, abnormal vaginal discharge MUSCULOSKELETAL: Negative for joint pain or swelling, back pain or muscle pain SKIN: Negative for lesions, rash, and itching HEMATOLOGY/LYMPHOLOGY: Negative for prolonged bleeding, bruising easily or swollen nodes ENDOCRINE: Negative for cold or heat intolerance, polyuria, polydipsia and goiter OBJECTIVE: PHYSICAL EXAM: BP 128/65 Pulse 77 Resp 20 Wt 85.3 kg (188 lb 1.6 oz) SpO2 100% BMI 30.05 kg/m GENERAL:well-nourished, healthy, alert and oriented x 3, calm SKIN:warm, dry, skin color, texture, turgor normal HEAD/EYES:normocephalic, atraumatic, and anicteric NECK: supple, symmetrical, no thyromegaly RESPIRATORY: Respirations regular & non-labored MUSCULOSKELETAL: No observed limitations in range of motion of upper extremities. Patient ambulates independently BREASTS: The Patient was examined in the upright and supine positions. LEFT BREAST: The breast skin and nipple areolar complexes appear normal without retraction or lesions. There is no nipple discharge. There is no dominant mass or clinical abnormality noted in left breast. RIGHT BREAST: There is a 7-8 cm area of fullness in the UOQ when compared to the opposite side. The breast skin and nipple areolar complexes appear normal without retraction or lesions. There is no nipple discharge. There are no other dominant masses or clinical abnormalities noted in right breast. LEFT REGIONAL LYMPH NODES: There is no concerning supraclavicular, infraclavicular or axillary lymphadenopathy RIGHT REGIONAL LYMPH NODES: There is no concerning supraclavicular, infraclavicular or axillary lymphadenopathy Single Resource Boss present for exam IMAGING TO DATE: 10/19/2022 Breast MRI FINDINGS: The tissue of both breasts is heterogeneously dense. Bilateral background breast enhancement is mild. There are innumerable enhancing irregular and oval masses throughout the right breast, more confluent in the upper outer and lower outer quadrants. There is associated biopsy marker clip in the upper outer quadrant of the right breast, at the site of the biopsy-proven invasive lobular carcinoma. No dermal involvement or pectoralis invasion is identified. There is also 2.5 cm area of non-mass enhancement in the left breast at 1:00 middle depth. This shows slow initial rise and delayed persistent type vascular enhancement. This correlates as an incidental finding. There also is an 8 mm lobulated mass with a smooth margin in the left breast at 10 o'clock posterior depth. This shows homogeneous enhancement and slow initial rise and delayed persistent type vascular enhancement. This correlates with mammography findings. This has been mammographically stable since the 04/18/2019 comparison mammographic examination and likely represents a fibroadenoma. No enhancing mass is identified in the left breast at 6:00, at the site of the biopsy-proven papilloma. No pathologically enlarged axillary or internal mammary lymph nodes are identified. IMPRESSION: SUSPICIOUS FINDING - BIOPSY SHOULD BE CONSIDERED 1. The innumerable enhancing masses throughout the right breast are consistent with the biopsy-proven invasive lobular carcinoma. 2. The 2.5 cm area of non-mass enhancement in the left breast at 1:00 is suspicious of malignancy. An MRI guided biopsy is recommended. 3. No pathologically enlarged axillary or internal mammary lymph nodes are identified. The patient will follow up with Dr. Manley. 10/18/2022 3:35 PM - Radiology, Oru In Addenda * * *Final Report* * * DATE OF EXAM: Sep 16 2022 12:00AM OUT 0007 - MAMM OUTSIDE DICOM IMPORT -NBNR / PROCEDURE REASON: Previous report is inadequate. * * * * Physician Interpretation * * * * EXAMINATION: OUTSIDE IMAGING INTERPRETATION Indication for the Request / Reason for Overread: Second opinion. Newly diagnosed malignancy in the right breast. Service Requesting Consult: Breast surgery. Overread Date: 10/18/2022 3:13 PM I am asked to review outside imaging on the patient prior to surgical consultation at this institution. She has newly diagnosed malignancy in the right breast, invasive lobular carcinoma. Left breast biopsy demonstrated intraductal papilloma. Submitted imaging includes bilateral screening mammogram 09/13/2022; bilateral diagnostic mammogram and ultrasound 09/16/2022; left and right ultrasound-guided breast biopsies 09/29/2022 and postbiopsy mammogram. Mammogram 09/12/22 demonstrates heterogeneously dense breast tissue, which limits the sensitivity of mammography. There is a region of prominent architectural distortion in the upper outer right breast. An oval mass is seen in the left breast, central to the nipple anterior depth. Scattered calcifications are seen throughout both breasts. Bilateral diagnostic mammogram was performed 09/16/2022. Re-demonstrated is prominent architectural distortion in the upper outer right breast. Indeterminate punctate calcifications are seen medial to the irregular mass on the craniocaudal magnification views. These may not be significantly changed compared to 2019 however due to positioning of the magnification views, these calcifications are not well visualized. Magnification views of the left breast demonstrate multiple scattered round calcifications, again not well visualized due to positioning of the magnification views. On the screening mammogram they do not appear significantly changed compared to 2019. Bilateral targeted breast ultrasound was performed. In the upper outer right breast at 10:00 4CMFN there is an irregular hypoechoic mass which correlates with mammography and measures 2.4 x 1.9 x 1.8 cm. A few additional small oval incidental hypoechoic masses were shown in the right breast on ultrasound. There are no images of the axilla. In the left breast, there is an oval isoechoic mass at 7 o'clock position measuring 0.9 x 0.8 x 0.8 cm and corresponding with mammography. Ultrasound-guided biopsy was performed 09/29/2022 for the right breast mass at 10:00 4 cm from the nipple, and the left breast mass at 7:00. Biopsy clip was placed in each biopsy site. Postbiopsy mammogram demonstrates a clip in the upper outer right breast, along the lateral aspect of architectural distortion. A HydroMARK coil clip is present in the left breast, and corresponds with the oval mass seen on initial mammogram. Pathology for the right breast mass is malignant, invasive lobular carcinoma. Pathology for the left breast mass is benign, intraductal papilloma. IMPRESSION: RIGHT BREAST: - ARCHITECTURAL DISTORTION IN THE UPPER OUTER RIGHT BREAST WHICH CORRESPONDS ON ULTRASOUND TO AN IRREGULAR 2.4 CM MASS AT 10:00 4 CM FROM THE NIPPLE. BIOPSY RESULT IS MALIGNANT, INVASIVE LOBULAR CARCINOMA. BIOPSY CLIP APPEARS TO BE ALONG THE LATERAL ASPECT OF THE MASS. SURGICAL CONSULTATION IS RECOMMENDED. - ADDITIONAL IMAGING RECOMMENDED FOR THE RIGHT BREAST: MAGNIFICATION VIEWS AND FULL ML FOR BETTER VISUALIZATION OF THE CALCIFICATIONS SEEN ON OUTSIDE CC MAG VIEWS (see 09-16-22); RIGHT AXILLARY ULTRASOUND. - GIVEN THE PATIENT'S HETEROGENEOUS BREAST TISSUE, INVASIVE LOBULAR HISTOLOGY, AND ADDITIONAL QUESTIONED INCIDENTAL FINDINGS ON OUTSIDE ULTRASOUND, BREAST MRI IS RECOMMENDED FOR FURTHER EVALUATION. BREAST MRI IS CURRENTLY SCHEDULED FOR 10/19/2022. LEFT BREAST: - BIOPSY PROVEN INTRADUCTAL PAPILLOMA (HYDROMARK COIL CLIP). NO ADDITIONAL SUSPICIOUS FOCAL FINDINGS SEEN IN THE LEFT BREAST. SURGICAL CONSULTATION RECOMMENDED. Wardrobe Mistress: YUDY Transcribe Date/Time: Oct 18 2022 3:13P Dictated by : CHRIS GARCIA MD This examination was interpreted and the report reviewed and electronically signed by: CHRIS GARCIA MD on Oct 18 2022 3:33PM EST 10/19/2022 1:36 PM - Radiology, O[facility] In Impression IMPRESSION: SUSPICIOUS FINDING - BIOPSY SHOULD BE CONSIDERED 1. The innumerable enhancing masses throughout the right breast are consistent with the biopsy-proven invasive lobular carcinoma. 2. The 2.5 cm area of non-mass enhancement in the left breast at 1:00 is suspicious of malignancy. An MRI guided biopsy is recommended. 3. No pathologically enlarged axillary or internal mammary lymph nodes are identified. The patient will follow up with Dr. Manley. Milagros Su M.D. rs/:10/19/2022 13:35:18 Customer Supply Chain Analyst(s): RT Tatiana(R)(M), [facility] Breast [place] MRI BI-RADS: 4 Suspicious finding - Biopsy should be considered Multiple national specialty organizations have released breast cancer screening guidelines for women at average risk for developing breast cancer - guidelines that are based on both evidence and opinion, yet differ on when to start and how often to screen for breast cancer. With representation from Breast Imaging, Internal Medicine, Women's Health, Family Medicine, and Medical/Surgical Oncology, the [facility] has carefully reviewed the data and reached the following consensus: 1) All women should engage in shared decision-making with their providers to decide when to start and how often to screen; 2) All women should have the opportunity to start screening mammography at age 40; 3) For women ages 45-55, we recommend annual screening mammograms; 4) For women ages 55 and over, we support both the transition from an annual to a biennial interval if this aligns more with patient's values and preferences, or continuation with annual screening; 5) All women should discuss with their providers when to stop screening mammograms. Wardrobe Mistress: Silvia Transcribe Date/Time: Oct 19 2022 12:21P Dictated by : MILAGROS SU MD This examination was interpreted and the report reviewed and electronically signed by: MILAGROS SU MD on Oct 19 2022 1:35PM EST Results-Findings * * *Final Report* * * DATE OF EXAM: Oct 19 2022 12:29PM AB 0773 - MRI BREAST WO/W IVCON DARRELL / PROCEDURE REASON: multiple diagnoses * * * * Physician Interpretation * * * * #[id number] - MRI BREAST WO/W IVCON DARRELL BREAST MRI OF BOTH BREASTS: 10/19/2022 HISTORY: Multiple Diagnoses. RESULT: Comparison is made to exams dated: 09/13/2022 mammogram, 09/16/2022 mammogram, 04/18/2019 mammogram, and 09/16/2022 ultrasound. Informed consent was obtained from the patient. MRI images were obtained. The patient was studied using the Sentinelle dedicated breast biopsy coil in the Siemens 1.5 Luisa scanner. Initial axial STIR imaging was carried out followed by axial T1-weighted GRE imaging both before and after IV administration of 14 ml of Dotarem. Subsequently, subtraction imaging and 3-D reconstruction were completed on an independent workstation. Interpretation of this MRI was correlated with available mammograms, ultrasounds, previous MRI scans and clinical information. MRI images were obtained at 1.5 mm intervals and at 5 mm coronal intervals with a dedicated breast coil. Examination includes pre-contrast and post-contrast imaging in the axial plane at 1 minutes. Post processing was performed including motion subtraction, color parametric mapping and 3D multiplanar reconstruction. FINDINGS: The tissue of both breasts is heterogeneously dense. Bilateral background breast enhancement is mild. There are innumerable enhancing irregular and oval masses throughout the right breast, more confluent in the upper outer and lower outer quadrants. There is associated biopsy marker clip in the upper outer quadrant of the right breast, at the site of the biopsy-proven invasive lobular carcinoma. No dermal involvement or pectoralis invasion is identified. There is also 2.5 cm area of non-mass enhancement in the left breast at 1:00 middle depth. This shows slow initial rise and delayed persistent type vascular enhancement. This correlates as an incidental finding. There also is an 8 mm lobulated mass with a smooth margin in the left breast at 10 o'clock posterior depth. This shows homogeneous enhancement and slow initial rise and delayed persistent type vascular enhancement. This correlates with mammography findings. This has been mammographically stable since the 04/18/2019 comparison mammographic examination and likely represents a fibroadenoma. No enhancing mass is identified in the left breast at 6:00, at the site of the biopsy-proven papilloma. No pathologically enlarged axillary or internal mammary lymph nodes are identified. 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 Family history of breast cancer in [facility] (dx in her early 50s), no family hx of ovarian cancer. She presents for an evaluation of a new right breast 10:00 at least 2.4 cm int-poor diff invasive lobular ca with LCIS, ER+ (>95%), WV+ (>95%), HER2- (1+). Innumerable masses throughout the right breast. There is additional Lt breast 2.5 cm NME suspicious for malignancy, pending MRI bx. No axillary or internal mammary LAD noted on MRI. Staging pending further work up. I have examined Ms. Cardoza and reviewed the physical findings, imaging and pathology reports with her. A discussion was held with the patient regarding the local-regional, as well as systemic treatment of her Breast Cancer. We discussed role of breast conservation surgery or mastectomy, indications and risks of sentinel lymph node biopsy, possibility of axillary lymph node dissection, breast reconstruction, and role of systemic and radiation therapy. Given the extent of disease which appears to be encompassing the majority of the right upper outer quadrant as well as left breast finding on MRI requiring biopsy, Ms. Cardoza is interested in bilateral skin-sparing mastectomies. We discussed a right axillary sentinel lymph node biopsy is indicated and, should the left breast biopsy return as malignant, a left axillary sentinel lymph node biopsy would also be indicated. She is interested in reconstruction and will be referred to see a plastic surgeon. On continued discussion, in the event that the left breast MRI biopsy is negative, Ms. Cardoza would be open to considering a unilateral mastectomy with contralateral plastic symmetry procedure. The risks and benefits of the procedure were discussed in detail and included, but not limited to, bleeding, hematoma requiring operation, infection, breast asymmetry, skin necrosis, seroma, nerve paresthesias and positive margins requiring reoperation. Patient expressed understanding and agreement to plan. IMAGING ORDERED TODAY: Left breast MRI-guided bx scheduled for 10/21 PLAN: Plan for bilateral skin-sparing mastectomy with right axillary sentinel lymph node biopsy +/- left axillary sentinel lymph node biopsy (should left MR-guided bx return as malignant)- may place a suture in the skin if tumor appears to extend close to skin Telephone/virtual regroup appointment following MRI biopsy to finalize surgical plan and obtained; patient is open to unilateral mastectomy with contralateral plastic surgery procedure for symmetry if left breast bx returns benign. Medical Oncology: Dr. Get Ryan 10/19 Radiation Oncology: needs scheduled Plastic Surgery: referral for reconstruction Genetics: referral placed per patient request All questions were answered and the patient had no further concerns at this time Ms. Cardoza was given our contact information if she has any further questions or concerns. Attending Note: I have personally performed a face to face assessment of this Patient, which included an interview, physical exam, and discussion of the Breast Imaging, Assessment and Plan. I have reviewed and confirmed the history and sánchez findings as documented by the Physician Rock Contractor and edited as appropriate. I spent a total of 74 minutes on the date of the service which included preparing to see the patient, [id number] patient care, completing clinical documentation, performing a medically appropriate examination, counseling and educating the patient/family/caregiver, communicating with other HCPs (not separately reported), communicating results to the patient/family/caregiver, and care coordination (not separately reported). Messi Manley MD documented in this encounter [facility] 10-19-2022 Miscellaneous Notes Called Ms. Cardoza to notify her that MRI negative axillary and internal mammary Lns. As a result, will defer bilateral axillary US. Messi Manley MD documented in this encounter [facility] 10-19-2022 Note [facility] 10-19-2022 Note [facility] 10-19-2022 Nurse Note Additional intake questions: Has the patient had fever, nausea, vomiting, diarrhea, constipation, fatigue for > 1 week? No Does the patient have a decreased appetite? Yes Does patient want to see a Truck Despatcher? No (yes to any of above refer patient to schedulers for dietitian appointment) ) Does patient have any new or increased numbness or tingling of extremities? No Is patient interested in fertility information? NA Does patient need any prescription refills? No Does patient have an advanced directive in place? No, Patient referred to [facility] documented in this encounter [facility] 10-19-2022 History of Present illness Narrative [facility] CANCER INTITUTE CONSULT NOTE - Marianna Ryan MD SOLID TUMOR ONCOLOGY PATIENT NAME: Clive Cardoza DATE OF SERVICE: October 19, 2022 My findings and recommendations will be communicated to the referring physician and other members of the patient's health care team by means of the shared electronic medical record and fax. CHIEF COMPLAINT: Clive Cardoza is a 51 year old woman seen in consultation for Messi Manley MD, who seeks my opinion regarding management of screen detected but palpable ER+, WV+, HER2 negative breast cancer. HISTORY OF PRESENT ILLNESS: Ms. Clive Cardoza says that a lesion in the upper outer quadrant of the right breast was previously noted and followed. Screening mammograms performed at [facility] on 09/13/22 showed extremely dense breasts. Architectural distortion in the upper portion of the right breast was sen as well as 2 focal nodules in the left breast. Bilateral diagnostic mammograms performed 09/16/22 at [facility] on 09/16/22 were read locally as showing a large spiculated mass in the upper outer quadrant of the right breast. In the left breast spot magnification views showed several asymmetries in the lower inner and upper inner quadrants. Bilateral breast ultrasound showed a 2.4 cm mass at 10:00 o'clock in the right breast as well as several non-specific small oval masses. A 0.8 cm hmass was seen at the 7:00 o'clock position of the left breast. 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 The invasive cancer measured 1.3 cm in the core biopsy and was strongly ER+ in >95% of cells, strongly WV+ in >95% of cells, and HER2 negative (1+ by IHC). Biopsy of a left breast lesion performed 09/29/22 showed intraductal papilloma with apocrine metaplasia. Ms. Cardoza feels well physically, but is distressed by her diagnosis. She has no symptoms suggestive of metastatic disease. PAST MEDICAL HISTORY: PAST MEDICAL HISTORY Diagnosis Date Anxiety and depression Breast cancer (HCC) 09/29/2022 PAST SURGICAL HISTORY: PAST SURGICAL HISTORY Procedure Laterality Date VAGINAL HYSTERECTOMY Bilateral 2013 and BSO ALLERGIES: ALLERGIES Not on File CURRENT MEDICATIONS: ALPRAZolam (XANAX) 0.5 mg tablet Take 0.5 mg by mouth twice daily. iv contrast (will be provided with radiology test) MRI Breast DARRELL Inject, intravenously, once for 1 dose. No IV access, insert saline lock prior to the beginning of sedation, infusion, injection of imaging exam. Discontinue saline lock post exam. If Pt has a central line or IVAD, may access for administration according to line specific nursing protocol. Once exam is complete flush line and de-access according to line specific nursing protocol in the MR contrast administration guidelines link buPROPion SR (ZYBAN SR; WELLBUTRIN SR) 150 mg 12 hr tablet Take 150 mg by mouth once daily. fexofenadine HCl (MONICA 60 MG CAP) Take 1 tablet by mouth once daily. iv contrast (will be provided with radiology test) MRI LT Breast Bx Inject, intravenously, once for 1 dose. No IV access, insert saline lock prior to the beginning of sedation, infusion, injection of imaging exam. Discontinue saline lock post exam. If Pt has a central line or IVAD, may access for administration according to line specific nursing protocol. Once exam is complete flush line and de-access according to line specific nursing protocol in the MR contrast administration guidelines link FAMILY HISTORY: FAMILY HISTORY Problem Relation Age of Onset Lung Cancer Maternal Grandfather Prostate Cancer Paternal Grandfather other (bone cancer) Paternal Uncle other (jaw cancer) Paternal cousin Breast Cancer Maternal cousin Cancer Paternal Aunt primary not known to the patient SOCIAL HISTORY: Clive Cardoza is with 2 children and 3rd that she had at age 14 and adopted out. 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 She smoked lightly (2 cigarettes/day) between ages 13 and 28, drinks alcohol rarely (1-2/year) and uses marijuana gummies at night for sleep and anxiety, but no other recreational drugs. REVIEW OF SYSTEMS: General-15 lb/3 month weight loss related to [place]. Energy good. HEENT-negative other than hay fever. Pulmonary-cough with hay fever. Cardiac-negative. GI-negative. -stress and urge incontinence. Musculoskeletal-negative. Endocrine-negative. Neuro-negative. 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 Menarche 9. First live age 14. LMP 2014 with hysterectomy. She took estradiol from 2013 until 09/16/22. Social History Tobacco Use Smoking status: Former Packs/day: 0.25 Years: 15.00 Pack years: 3.75 Types: Cigarettes Quit date: 1999 Years since quittin.4 Smokeless tobacco: Never Substance Use Topics Drug use: Yes Types: Marijuana PHYSICAL EXAMINATION: BP 139/74 Pulse 84 Temp (Src) 98.2 (Oral) Resp 20 Ht 5' 6.339 (1.69m) Wt 188 lb 11.2 oz (85.6kg) SpO2 100[ra]% BMI 30.15 kg/(m^2). Clive Cardoza is an anxious 51 year old woman accompanied by her . Performance Status=0. HEENT-no cervical adenopathy. Pulmonary-lungs are clear to ausculation. Cardiac-regular rate and rhythm. Breast and Chest Wall-left breast exam is unremarkable other than an ecchymotic area in the left lower breast. There is a visible bulge in the upper outer quadrant of the left breast with a poorly defined but clearly palpable 6 cm mass in the RUO quadrant. There is no palpable adenopathy Abdomen-no organomegaly, mass, or tenderness. Extremities-no arm edema. Neuro-grossly intact. IMAGING: MRI done today was reviewed with radiology and with Dr. Manley. It showed multiple enhancing masses throughout the right breast, most confluent laterally where the lesions constitute a 7 cm mass. There is a 2.5 cm area of non-mass enhancement in the left breast at 1:00 o'clock. No axillary or internal mammary adenopathy is seen. IMPRESSION: Extensive involvement of the right breast with ER+, WV+, HER2-negative pleomorphic lobular carcinoma, pending pathology review. Suspicious left breast lesion. PLAN: The situation was reviewed and discussed. A left breast MRI-guided biopsy was recommended and will be scheduled. The differentiation between local and systemic therapy was made and the rationale for each explained. I told her that there would be a major role for endocrine therapy as well as a likely role for abemaciclib. A potential role for chemotherapy was discussed, and prognostic and predictive factors that would be used to make a final treatment recommendation were reviewed, including the possible use of the Oncotype Dx 21 gene assay or the Mammoprint assay. If mastectomy is to be done regardless of neoadjuvant therapy, I favor primary surgery, but I discussed the possibility of neoadjuvant systemic therapy with the patient. I will talk with Dr. Manley after his visit and the left breast biopsy. She is interested in a medical genetics opinion. I spent a total of 70 minutes on the date of the service which included preparing to see the patient, [id number] patient care, completing clinical documentation, obtaining and/or reviewing separately obtained history, performing a medically appropriate examination, counseling and educating the patient/family/caregiver, ordering medications, tests, or procedures, communicating with other HCPs (not separately reported), independently interpreting results (not separately reported), communicating results to the patient/family/caregiver, and care coordination (not separately reported). Marianna Ryan MD cc: Messi Manley MD documented in this encounter [facility] 10-19-2022 History of Present illness Narrative Radiology Service Progress Note PATIENT NAME: Clive Cardoza DATE OF SERVICE: October 19, 2022 TIME: 12:20 PM PATIENT IDENTITY VERIFICATION COMPLETED USING TWO (2) IDENTIFIERS: Name and Date of confirmed by patient verbally and Name and Date of confirmed by identification band. FALL SCREENING: Has the patient had 2 falls in the last year or 1 fall with injury or currently using an Ambulatory Assistive Device (Walker, Cane, Wheelchair, Crutches, etc.)? No PATIENT GENDER DATA: Female. status: : No status: NO. PATIENT RELEVANT IMPLANT DATA REVIEWED: Yes RADIOLOGY DEPARTMENT: MR; Exam(s) Completed: Chest: Breast PERIPHERAL IV DATA: Site assessment: Clean,Dry and Intact, Site disposition Discontinued SIGNED BY: RT Tatiana(R) October 19, 2022 12:20 PM documented in this encounter [facility] Evaluation note Diagnosis Malignant neoplasm of right breast in female, estrogen receptor positive, unspecified site of breast (HCC)- Primary documented in this encounter [facility] note* Diagnosis Malignant neoplasm of right breast in female, estrogen receptor positive, unspecified site of breast (HCC) Malignant neoplasm of right female breast, unspecified estrogen receptor status, unspecified site of breast (HCC)- Primary documented in this encounter [facility] note* Diagnosis Abnormal MRI, breast- Primary Other (abnormal) findings on radiological examination of breast documented in this encounter [facility] note* Diagnosis Malignant 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 in female, estrogen receptor positive (HCC)- Primary documented in this encounter [facility] note* Diagnosis Malignant neoplasm of right breast in female, estrogen receptor positive, unspecified site of breast (HCC) documented in this encounter [facility] note* Diagnosis Malignant neoplasm of overlapping sites of right breast in female, estrogen receptor positive (HCC)- Primary documented in this encounter [facility] note* Diagnosis Malignant 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 in female, estrogen receptor positive (HCC)- Primary Malignant neoplasm of right female breast, unspecified estrogen receptor status, unspecified site of breast (HCC) Pre-op testing Preoperative examination, unspecified documented in this encounter [facility] note* Diagnosis Abnormal MRI, breast Other (abnormal) findings on radiological examination of breast Malignant 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 in female, estrogen receptor positive (HCC) documented in this encounter [facility] note* Diagnosis Malignant neoplasm of overlapping sites of right breast in female, estrogen receptor positive (HCC)- Primary Malignant neoplasm of female breast, unspecified estrogen receptor status, unspecified laterality, unspecified site of breast (HCC)- Primary Malignant 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 in female, estrogen receptor positive (HCC) Complex sclerosing lesion of left breast Malignant 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 in female, estrogen receptor positive (HCC) documented in this encounter [facility] noteNort [employer] Other Evaluation note* Diagnosis Malignant neoplasm of overlapping sites of right breast in female, estrogen receptor positive (HCC)- Primary Malignant 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 in female, estrogen receptor positive (HCC) documented in this encounter [facility] note* Diagnosis Malignant neoplasm of overlapping sites of right breast in female, estrogen receptor positive (HCC)- [facility] Diagnosis Malignant neoplasm of overlapping sites of right breast in female, estrogen receptor positive (HCC)- Primary [facility] Diagnosis Malignant 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 in female, estrogen receptor positive (HCC)- Primary [facility] Diagnosis Malignant neoplasm of overlapping sites of right breast in female, estrogen receptor positive (HCC)- Primary [facility]* Diagnosis Malignant 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 in female, estrogen receptor positive (HCC) [facility]* Diagnosis Malignant 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 in female, estrogen receptor positive (HCC)- Primary [facility]* Diagnosis Malignant 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 in female, estrogen receptor positive (HCC)- Primary [facility]* Diagnosis Invasive lobular carcinoma of breast in female (HCC)- Primary [facility]* Diagnosis Malignant neoplasm of overlapping sites of right breast in female, estrogen receptor positive (HCC) [facility]* Diagnosis Invasive lobular carcinoma of breast in female (HCC)- Primary [facility]* Diagnosis Invasive lobular carcinoma of breast in female (HCC)- Primary [facility]* Diagnosis Invasive lobular carcinoma of breast in female (HCC)- Primary [facility]* Diagnosis Malignant 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 in female, estrogen receptor positive (HCC)- Primary [facility]* Diagnosis History of aromatase inhibitor therapy Personal history of antineoplastic chemotherapy [facility]* Diagnosis Malignant neoplasm of upper-outer quadrant of right female breast, unspecified estrogen receptor status (HCC)- Primary [facility] Diagnosis Invasive lobular carcinoma of breast in female (HCC)- Primary [facility] Diagnosis Malignant neoplasm of overlapping sites of right breast in female, estrogen receptor positive (HCC)- Primary [facility] Diagnosis History of aromatase inhibitor therapy- Primary Personal history of antineoplastic chemotherapy Invasive lobular carcinoma of breast in female (HCC) documented in this encounter [facility] note* Diagnosis Encounter for routine cancer follow-up- Primary Other follow-up examination Aromatase inhibitor use Use of aromatase inhibitors H/O bilateral mastectomy Acquired absence of breast and nipple Malignant neoplasm of right breast in female, estrogen receptor positive, unspecified site of breast (HCC) documented in this encounter [facility] note* Diagnosis Aromatase inhibitor use- Primary Use of aromatase inhibitors H/O bilateral mastectomy Acquired absence of breast and nipple Encounter for routine cancer follow-up Other follow-up examination Malignant neoplasm of right breast in female, estrogen receptor positive, unspecified site of breast (HCC) (HCC) documented in this encounter [facility] note* Diagnosis Aromatase inhibitor use- Primary Use of aromatase inhibitors documented in this encounter [facility]ative - [facility] [employer] Other Reason for referral (narrative)* Diagnostic Procedure Only (Routine) - Authorized Specialty Diagnoses / Procedures Referred By Kenny rocha Referred To Contact BR IMAGING Diagnoses Malignant neoplasm of right female breast, unspecified estrogen receptor status, unspecified site of breast (HCC) Procedures US AXILLA ONLY RIGHT US LMTD JOINT/OTH NONVASC XTR STRUX R-T W/IMG Messi Manley MD [address] [place] [address] Br Imaging [facility] [place] [address] Referral ID Status Reason Start Date Expiration Date Visits Requested Visits Authorized [id number] Authorized Auto-Generat ed Referral 10/19/2022 11/18/2023 1 1 * Diagnostic Procedure Only (Routine) - Authorized Specialty Diagnoses / Procedures Referred By Kenny rocha Referred To Contact BR IMAGING Diagnoses Malignant neoplasm of right female breast, unspecified estrogen receptor status, unspecified site of breast (HCC) Procedures CARLOS ENRIQUE DIAGNOSTIC RIGHT DIAGNOSTIC MAMMOGRAPHY COMPUTER-AIDED DETCJ UNI Messi Manley MD [address] [place] [address] Br Imaging [address] [place] [address] Referral ID Status Reason Start Date Expiration Date Visits Requested Visits Authorized [id number] Authorized Auto-Generat ed Referral 10/19/2022 11/18/2023 1 1 [facility] for referral (narrative)* Diagnostic Procedure Only (Routine) - Pending Review Specialty Diagnoses / Procedures Referred By Contac t Referred To Contact MOLECULAR & FUNCTIONAL IMAGING Diagnoses Malignant 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 in female, estrogen receptor positive (HCC) Procedures NM BONE WHOLE BODY BONE &/JOINT IMAGING [place]LE [place] [id number] [place], [place] [id number] Molecular & Functional Imaging [address] [place] [address] Referral ID Status Reason Start Date Expiration Date Visits Requested Visits Authorized [id number] Pending Review Auto-Generat ed Referral 12/09/2022 01/01/2024 1 1 * MRI/CT (Routine) - Authorized Specialty Diagnoses / Procedures Referred By Contac t Referred To Contact CT IMAGING Diagnoses Malignant 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 in female, estrogen receptor positive (HCC) Procedures CT CHEST W IVCON DIAGNOSTIC COMPUTED TOMOGRAPHY THORAX W/CONTRAST Get Ryan MD [id number] [place] [address] [address] [address] Referral ID Status Reason Start Date Expiration Date Visits Requested Visits Authorized [id number] Authorized Auto-Generat ed Referral 12/09/2022 01/01/2024 1 1 * MRI/CT (Routine) - Open Specialty Diagnoses / Procedures Referred By Contac t Referred To Contact CT IMAGING Diagnoses Malignant 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 in female, estrogen receptor positive (HCC) Procedures CT ABD/PEL W IVCON CT ABD & PELVIS W/[place] [address] [place] [address] Ct Imaging Referral ID Status Reason Start Date Expiration Date V isits Requested Visits Authorized [id number] Open Auto-Generate d Referral 12/09/2022 01/01/2024 1 1 [facility] for visit Narrative* Diagnostic Procedure Only (Routine) - Closed Specialty Diagnoses / Procedures Referred By Contac t Referred To Contact MOLECULAR & FUNCTIONAL IMAGING Diagnoses Malignant 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 in female, estrogen receptor positive (HCC) Procedures NM BONE WHOLE BODY BONE &/[place] [address] [place] [id number] Molecular & Functional Imaging [address] [place] [address] Referral ID Status Reason Start Date Expiration Date V isits Requested Visits Authorized [id number] Closed Auto-Generate d Referral 12/09/2022 01/01/2024 2 2 [facility] Summary Purpose Family History No Family History Records FoundNo Family History Records FoundNo Family History Records FoundNo Family History Records FoundNo Family History Records Found Advance Directives No Advanced Directives Records FoundNo Advanced Directives Records FoundNo Advanced Directives Records FoundNo Advanced Directives Records FoundNo Advanced Directives Records Found Reason for Referral Specialty Diagnoses / Procedures Referred By Miteshac t Referred To Contact MR IMAGING Diagnoses Malignant neoplasm of right breast in female, estrogen receptor positive, unspecified site of breast (HCC) Procedures MRI BREAST WO/W IVCON BILATERAL MRI BREAST WITHOUT&WITH CONTRAST W/CAD BILATERAL Messi Manley MD [address] [place] [address] Mr Imaging Referral ID Status Reason Start Date Expiration Date Visits Requested Visits Authorized [id number] Pending Review Auto-Generat ed Referral 10/18/2022 11/17/2023 1 1 Specialty Diagnoses / Procedures Referred By Contac t Referred To Contact MR IMAGING Diagnoses Abnormal MRI, breast Procedures MRI BREAST BX WO/W IVCON LEFT BX BREAST W/DEVICE 1ST LESION MAGNETIC RES GUID Sharlene, Rosalinn, MD [address] [place] [address] Mr Imaging Referral ID Status Reason Start Date Expiration Date Visits Requested Visits Authorized [id number] Pending Review Auto-Generat ed Referral 10/19/2022 11/18/2023 1 1 Referral ID Status Reason Start Date Expiration Date V isits Requested Visits Authorized [id number] Closed Auto-Generate d Referral 10/11/2022 11/25/2022 1 1 Specialty Diagnoses / Procedures Referred By Contac t Referred To Contact Diagnoses Malignant neoplasm of overlapping sites of right breast in female, estrogen receptor positive (HCC) Procedures CONSULT TO MEDICAL GENETICS - CANCER MEDICAL GENETICS COUNSELING EACH 30 MINUTES Jacqueline Altamirano PA-C [facility] [place] [address] [facility] Medicine [address] [address] Referral ID Status Reason Start Date Expiration Date Visits Requested Visits Authorized [id number] Authorized PCP Requested Referral Auto-Generate d Referral 10/20/2022 10/20/2023 1 1 Specialty Diagnoses / Procedures Referred By Contac t Referred To Contact Diagnoses Pre-op testing Procedures REFER TO PACC - PRE ANESTHESIA CONSULTATION CLINIC OFFICE/OUTPATIENT [facility] 60-74 MINUTES Messi Manley MD [address] [place] [address] Referral ID Status Reason Start Date Expiration Date Visits Requested Visits Authorized [id number] Authorized PCP Requested Referral 10/20/2022 10/20/2023 1 1 Specialty Diagnoses / Procedures Referred By Contac t Referred To Contact [facility] Diagnoses Pre-op testing Procedures ECG COMPLETE ECG ROUTINE ECG W/LEAST 12 LDS W/I&R Messi Manley MD [address] [place] [address] [facility] [place] [address] [place] [address] Referral ID Status Reason Start Date Expiration Date Visits Requested Visits Authorized [id number] Pending Review Auto-Generat ed Referral 10/20/2022 10/20/2023 1 1 Referral ID Status Reason Start Date Expiration Date V isits Requested Visits Authorized [id number] Closed Patient Cleared - Admin/Chairm an/Director advise to proceed or did not respond 10/19/2022 04/30/2023 1 1 Specialty Diagnoses / Procedures [facility] To Contact Diagnoses Malignant neoplasm of overlapping sites of right breast in female, estrogen receptor positive (HCC) Procedures BREAST PROSTHESIS, MASTECTOMY BRA BREAST PROSTHESIS, [place] [address] [place] [address] Referral ID Status Reason Start Date Expiration Date V isits Requested Visits Authorized [id number] Closed Auto-Generate d Referral 12/02/2022 12/03/2023 1 1 Specialty Diagnoses / Procedures Referred By Contac t Referred To Contact Diagnoses Malignant neoplasm of overlapping sites of right breast in female, estrogen receptor positive (HCC) Procedures BREAST PROSTHESIS, SILICONE BREAST PROSTHESIS[place] [address] [place] [address] Referral ID Status Reason Start Date Expiration Date V isits Requested Visits Authorized [id number] Closed Auto-Generate d Referral 12/02/2022 12/03/2023 1 1 Referral ID Status Reason Start Date Expiration Date V isits Requested Visits Authorized [id number] Closed Auto-Generate d Referral 12/02/2022 12/03/2023 1 1 Specialty Diagnoses / Procedures [facility]erred To Contact [facility] Diagnoses Malignant neoplasm of overlapping sites of right breast in female, estrogen receptor positive (HCC) Procedures CONSULT TO BREAST REHAB PROGRAM THERAPEUTIC EXERCISES RE, EA 15 MIN. THERAPEUT ACTVITY DIRECT PT CONTACT EACH 15 [place] [address] [place] [address] [facility] [address] [address] Referral ID Status Reason Start Date Expiration Date Visits Requested Visits Authorized [id number] Authorized PCP Requested Referral Auto-Generate d Referral 12/02/2022 12/02/2023 1 1 Specialty Diagnoses / Procedures Referred By Contac t Referred To Contact CT IMAGING Diagnoses Malignant 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 in female, estrogen receptor positive (HCC) Procedures CT CHEST W IVCON DIAGNOSTIC COMPUTED TOMOGRAPHY THORAX W/[place] [address] [place] [phone] [facility] [place] [address] Referral ID Status Reason Start Date Expiration Date V isits Requested Visits Authorized [id number] Closed Auto-Generate d Referral 12/09/2022 01/01/2024 2 2 Specialty Diagnoses / Procedures Referred By Contac t Referred To Contact CT IMAGING Diagnoses Malignant 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 in female, estrogen receptor positive (HCC) Procedures CT ABD/PEL W IVCON CT ABD & PEL[place] [address] [place] [phone] [facility] [place] [address] Referral ID Status Reason Start Date Expiration Date V isits Requested Visits Authorized [id number] Closed Auto-Generate d Referral 12/05/2022 01/19/2023 1 1 Specialty Diagnoses / Procedures Referred By Contac t Referred To Contact Diagnoses Invasive lobular carcinoma of breast in female (HCC) Procedures CT SIM PLANNING RADIATION ONCOLOGY THER RAD SIMULAJ-AIDED FIELD SETTING COMPLEX Trevin Calderón MD [address] [place] [address] Referral ID Status Reason Start Date Expiration Date Visits Requested Visits Authorized [id number] Pending Review PCP Requested Referral 01/06/2023 04/06/2023 1 1 Specialty Diagnoses / Procedures Referred By Contac t Referred To Contact Diagnoses H/O bilateral mastectomy Procedures CONSULT TO MASSAGE THERAPY OFFICE/OUTPATIENT [facility] 60-74 MINUTES Laina Muller, JOSELITO.PROOF PLATE MAKER [address] [place] [phone] Referral ID Status Reason Start Date Expiration Date Visits Requested Visits Authorized [id number] Pending Review PCP Requested Referral 04/04/2023 04/03/2024 1 1 Specialty Diagnoses / Procedures Referred By Contac t Referred To Contact XR IMAGING Diagnoses Aromatase inhibitor use Procedures DXA-FOREARM SKELETON DXA BONE DENSITY STUDY 1/>SITES APPENDICLR SKEL Laina Muller, ASSET MANAGEMENT COORDINATOR.PROOF PLATE MAKER [address] [place] [address] [place] [address] Referral ID Status Reason Start Date Expiration Date Visits Requested Visits Authorized [id number] Pending Review Auto-Generat ed Referral 04/04/2023 05/03/2024 1 1 Specialty Diagnoses / Procedures Referred By Contac t Referred To Contact [facility] Diagnoses Aromatase inhibitor use Procedures CONSULT TO PHYSICAL THERAPY PHYSICAL THERAPY EVALUATION HIGH COMPLEX 45 MINS Laina Muller, ASSET MANAGEMENT COORDINATOR.PROOF PLATE MAKER [address] [place] [address] [facility] [place] [address] [place] [address] Referral ID Status Reason Start Date Expiration Date Visits Requested Visits Authorized [id number] Pending Review Auto-Generat ed Referral 04/04/2023 04/03/2024 1 1 Medications Administered Section Inactive Administered Medications - up to 3 most recent administrations Medication Order MAR Action Action Date Dose Rate Site lidocaine 10 mg/mL (1 %) injection (XYLOCAINE) OTHER, X (OR/PROCEDURE) PRN, Starting on Mon10/21/22 at 1327, Until 10/22/22 at 0440, Intraprocedure Given 10/21/2022 1:27 PM EDT 50 mg Breast, Left lidocaine-EPINEPHrine 0.5 %-1:200,000 injection INTRADERMAL, X (OR/PROCEDURE) PRN, Starting on Mon10/21/22 at 1327, Until 10/22/22 at 0440, Intraprocedure Given 10/21/2022 1:32 PM EDT 10 mL Breast, Left Given 10/21/2022 1:27 PM EDT 5 mL Br east, Left Inactive Administered Medications - up to 3 most recent administrations Medication Order MAR Action Action Date Dose Rate Site zoledronic uu-kbheycac-6.9NaCl 4 mg iv piggyback 100 mL (ZOMETA) 4 mg, INTRAVENOUS, Administer over 15 Minutes, ONCE, 1 dose, On Mon04/04/23 at 1500, Hazardous Potential Reproductive Risk Drug: Use appropriate PPE. New Bag/Syringe/Bottle 04/04/2023 2:50 PM EST 4 mg Additional Source Comments INFORMATION SOURCE (unrecogn ized section and content) DATE CREATED AUTHOR 07/15/2021 [facility] dical Specialist DATE CREATED AUTHOR AUTHOR'S ORGANIZ ATION 09/14/2022 [facility] DATE CREATED AUTHOR AUTHOR'S ORGANIZ ATION 12/15/2022 [facility] DATE CREATED AUTHOR AUTHOR'S ORGANIZ ATION 06/11/2023 [facility] DATE CREATED AUTHOR AUTHOR'S ORGANIZ ATION 06/19/2023 [facility] dical Specialists EPIC Source Comments (unrecognize d section and content) In the event this informatio n is protected by the Federal Confidentiality of Alcohol and Drug Abuse Patient Records regulations: The Federal rules restrict any use of the information to criminally investigate or prosecute any alcohol or drug abuse patient.[facility] the event this information is protected by the Federal Confidentiality of Alcohol and Drug Abuse Patient Records regulations: The Federal rules restrict any use of the information to criminally investigate or prosecute any alcohol or drug abuse patient.[facility] the event this information is protected by the Federal Confidentiality of Alcohol and Drug Abuse Patient Records regulations: The Federal rules restrict any use of the information to criminally investigate or prosecute any alcohol or drug abuse patient.[facility] the event this information is protected by the Federal Confidentiality of Alcohol and Drug Abuse Patient Records regulations: The Federal rules restrict any use of the information to criminally investigate or prosecute any alcohol or drug abuse patient.[facility] the event this information is protected by the Federal Confidentiality of Alcohol and Drug Abuse Patient Records regulations: The Federal rules restrict any use of the information to criminally investigate or prosecute any alcohol or drug abuse patient.[facility] the event this information is protected by the Federal Confidentiality of Alcohol and Drug Abuse Patient Records regulations: The Federal rules restrict any use of the information to criminally investigate or prosecute any alcohol or drug abuse patient.[facility] the event this information is protected by the Federal Confidentiality of Alcohol and Drug Abuse Patient Records regulations: The Federal rules restrict any use of the information to criminally investigate or prosecute any alcohol or drug abuse patient.[facility] the event this information is protected by the Federal Confidentiality of Alcohol and Drug Abuse Patient Records regulations: The Federal rules restrict any use of the information to criminally investigate or prosecute any alcohol or drug abuse patient.[facility] the event this information is protected by the Federal Confidentiality of Alcohol and Drug Abuse Patient Records regulations: The Federal rules restrict any use of the information to criminally investigate or prosecute any alcohol or drug abuse patient.[facility] the event this information is protected by the Federal Confidentiality of Alcohol and Drug Abuse Patient Records regulations: The Federal rules restrict any use of the information to criminally investigate or prosecute any alcohol or drug abuse patient.[facility] the event this information is protected by the Federal Confidentiality of Alcohol and Drug Abuse Patient Records regulations: The Federal rules restrict any use of the information to criminally investigate or prosecute any alcohol or drug abuse patient.[facility] Hospital[facility] the event this information is protected by the Federal Confidentiality of Alcohol and Drug Abuse Patient Records regulations: The Federal rules restrict any use of the information to criminally investigate or prosecute any alcohol or drug abuse patient.[facility] Hospital[facility] the event this information is protected by the Federal Confidentiality of Alcohol and Drug Abuse Patient Records regulations: The Federal rules restrict any use of the information to criminally investigate or prosecute any alcohol or drug abuse patient.[facility] Hospital[facility] the event this information is protected by the Federal Confidentiality of Alcohol and Drug Abuse Patient Records regulations: The Federal rules restrict any use of the information to criminally investigate or prosecute any alcohol or drug abuse patient.[facility] Hospital[facility] the event this information is protected by the Federal Confidentiality of Alcohol and Drug Abuse Patient Records regulations: The Federal rules restrict any use of the information to criminally investigate or prosecute any alcohol or drug abuse patient.[facility] Hospital[facility] the event this information is protected by the Federal Confidentiality of Alcohol and Drug Abuse Patient Records regulations: The Federal rules restrict any use of the information to criminally investigate or prosecute any alcohol or drug abuse patient.[facility] the event this information is protected by the Federal Confidentiality of Alcohol and Drug Abuse Patient Records regulations: The Federal rules restrict any use of the information to criminally investigate or prosecute any alcohol or drug abuse patient.[facility] Hospital[facility] the event this information is protected by the Federal Confidentiality of Alcohol and Drug Abuse Patient Records regulations: The Federal rules restrict any use of the information to criminally investigate or prosecute any alcohol or drug abuse patient.[facility] HospitalIn the event this information is protected by the Federal Confidentiality of Alcohol and Drug Abuse Patient Records regulations: The Federal rules restrict any use of the information to criminally investigate or prosecute any alcohol or drug abuse patient.[facility] HospitalIn the event this information is protected by the Federal Confidentiality of Alcohol and Drug Abuse Patient Records regulations: The Federal rules restrict any use of the information to criminally investigate or prosecute any alcohol or drug abuse patient.[facility] HospitalIn the event this information is protected by the Federal Confidentiality of Alcohol and Drug Abuse Patient Records regulations: The Federal rules restrict any use of the information to criminally investigate or prosecute any alcohol or drug abuse patient.[facility] HospitalIn the event this information is protected by the Federal Confidentiality of Alcohol and Drug Abuse Patient Records regulations: The Federal rules restrict any use of the information to criminally investigate or prosecute any alcohol or drug abuse patient.[facility] HospitalIn the event this information is protected by the Federal Confidentiality of Alcohol and Drug Abuse Patient Records regulations: The Federal rules restrict any use of the information to criminally investigate or prosecute any alcohol or drug abuse patient.[facility] HospitalIn the event this information is protected by the Federal Confidentiality of Alcohol and Drug Abuse Patient Records regulations: The Federal rules restrict any use of the information to criminally investigate or prosecute any alcohol or drug abuse patient.[facility] HospitalIn the event this information is protected by the Federal Confidentiality of Alcohol and Drug Abuse Patient Records regulations: The Federal rules restrict any use of the information to criminally investigate or prosecute any alcohol or drug abuse patient.[facility] HospitalIn the event this information is protected by the Federal Confidentiality of Alcohol and Drug Abuse Patient Records regulations: The Federal rules restrict any use of the information to criminally investigate or prosecute any alcohol or drug abuse patient.[facility] HospitalIn the event this information is protected by the Federal Confidentiality of Alcohol and Drug Abuse Patient Records regulations: The Federal rules restrict any use of the information to criminally investigate or prosecute any alcohol or drug abuse patient.[facility] HospitalIn the event this information is protected by the Federal Confidentiality of Alcohol and Drug Abuse Patient Records regulations: The Federal rules restrict any use of the information to criminally investigate or prosecute any alcohol or drug abuse patient.[facility] HospitalIn the event this information is protected by the Federal Confidentiality of Alcohol and Drug Abuse Patient Records regulations: The Federal rules restrict any use of the information to criminally investigate or prosecute any alcohol or drug abuse patient.[facility] HospitalIn the event this information is protected by the Federal Confidentiality of Alcohol and Drug Abuse Patient Records regulations: The Federal rules restrict any use of the information to criminally investigate or prosecute any alcohol or drug abuse patient.[facility] HospitalIn the event this information is protected by the Federal Confidentiality of Alcohol and Drug Abuse Patient Records regulations: The Federal rules restrict any use of the information to criminally investigate or prosecute any alcohol or drug abuse patient.[facility] HospitalIn the event this information is protected by the Federal Confidentiality of Alcohol and Drug Abuse Patient Records regulations: The Federal rules restrict any use of the information to criminally investigate or prosecute any alcohol or drug abuse patient.[facility] HospitalIn the event this information is protected by the Federal Confidentiality of Alcohol and Drug Abuse Patient Records regulations: The Federal rules restrict any use of the information to criminally investigate or prosecute any alcohol or drug abuse patient.[facility] HospitalIn the event this information is protected by the Federal Confidentiality of Alcohol and Drug Abuse Patient Records regulations: The Federal rules restrict any use of the information to criminally investigate or prosecute any alcohol or drug abuse patient.[facility] HospitalIn the event this information is protected by the Federal Confidentiality of Alcohol and Drug Abuse Patient Records regulations: The Federal rules restrict any use of the information to criminally investigate or prosecute any alcohol or drug abuse patient.[facility] HospitalIn the event this information is protected by the Federal Confidentiality of Alcohol and Drug Abuse Patient Records regulations: The Federal rules restrict any use of the information to criminally investigate or prosecute any alcohol or drug abuse patient.[facility] HospitalIn the event this information is protected by the Federal Confidentiality of Alcohol and Drug Abuse Patient Records regulations: The Federal rules restrict any use of the information to criminally investigate or prosecute any alcohol or drug abuse patient.[facility] HospitalIn the event this information is protected by the Federal Confidentiality of Alcohol and Drug Abuse Patient Records regulations: The Federal rules restrict any use of the information to criminally investigate or prosecute any alcohol or drug abuse patient.[facility] HospitalIn the event this information is protected by the Federal Confidentiality of Alcohol and Drug Abuse Patient Records regulations: The Federal rules restrict any use of the information to criminally investigate or prosecute any alcohol or drug abuse patient.[facility] HospitalIn the event this information is protected by the Federal Confidentiality of Alcohol and Drug Abuse Patient Records regulations: The Federal rules restrict any use of the information to criminally investigate or prosecute any alcohol or drug abuse patient.[facility] HospitalIn the event this information is protected by the Federal Confidentiality of Alcohol and Drug Abuse Patient Records regulations: The Federal rules restrict any use of the information to criminally investigate or prosecute any alcohol or drug abuse patient.[facility] HospitalIn the event this information is protected by the Federal Confidentiality of Alcohol and Drug Abuse Patient Records regulations: The Federal rules restrict any use of the information to criminally investigate or prosecute any alcohol or drug abuse patient.[facility] HospitalIn the event this information is protected by the Federal Confidentiality of Alcohol and Drug Abuse Patient Records regulations: The Federal rules restrict any use of the information to criminally investigate or prosecute any alcohol or drug abuse patient.[facility] HospitalIn the event this information is protected by the Federal Confidentiality of Alcohol and Drug Abuse Patient Records regulations: The Federal rules restrict any use of the information to criminally investigate or prosecute any alcohol or drug abuse patient.[facility] HospitalIn the event this information is protected by the Federal Confidentiality of Alcohol and Drug Abuse Patient Records regulations: The Federal rules restrict any use of the information to criminally investigate or prosecute any alcohol or drug abuse patient.[facility] HospitalIn the event this information is protected by the Federal Confidentiality of Alcohol and Drug Abuse Patient Records regulations: The Federal rules restrict any use of the information to criminally investigate or prosecute any alcohol or drug abuse patient.[facility] HospitalIn the event this information is protected by the Federal Confidentiality of Alcohol and Drug Abuse Patient Records regulations: The Federal rules restrict any use of the information to criminally investigate or prosecute any alcohol or drug abuse patient.[facility] HospitalIn the event this information is protected by the Federal Confidentiality of Alcohol and Drug Abuse Patient Records regulations: The Federal rules restrict any use of the information to criminally investigate or prosecute any alcohol or drug abuse patient.[facility] HospitalIn the event this information is protected by the Federal Confidentiality of Alcohol and Drug Abuse Patient Records regulations: The Federal rules restrict any use of the information to criminally investigate or prosecute any alcohol or drug abuse patient.[facility] HospitalIn the event this information is protected by the Federal Confidentiality of Alcohol and Drug Abuse Patient Records regulations: The Federal rules restrict any use of the information to criminally investigate or prosecute any alcohol or drug abuse patient.[facility] HospitalIn the event this information is protected by the Federal Confidentiality of Alcohol and Drug Abuse Patient Records regulations: The Federal rules restrict any use of the information to criminally investigate or prosecute any alcohol or drug abuse patient.[facility] HospitalIn the event this information is protected by the Federal Confidentiality of Alcohol and Drug Abuse Patient Records regulations: The Federal rules restrict any use of the information to criminally investigate or prosecute any alcohol or drug abuse patient.[facility] HospitalIn the event this information is protected by the Federal Confidentiality of Alcohol and Drug Abuse Patient Records regulations: The Federal rules restrict any use of the information to criminally investigate or prosecute any alcohol or drug abuse patient.[facility] HospitalIn the event this information is protected by the Federal Confidentiality of Alcohol and Drug Abuse Patient Records regulations: The Federal rules restrict any use of the information to criminally investigate or prosecute any alcohol or drug abuse patient.[facility] HospitalIn the event this information is protected by the Federal Confidentiality of Alcohol and Drug Abuse Patient Records regulations: The Federal rules restrict any use of the information to criminally investigate or prosecute any alcohol or drug abuse patient.[facility] HospitalIn the event this information is protected by the Federal Confidentiality of Alcohol and Drug Abuse Patient Records regulations: The Federal rules restrict any use of the information to criminally investigate or prosecute any alcohol or drug abuse patient.[facility] HospitalIn the event this information is protected by the Federal Confidentiality of Alcohol and Drug Abuse Patient Records regulations: The Federal rules restrict any use of the information to criminally investigate or prosecute any alcohol or drug abuse patient.[facility] HospitalIn the event this information is protected by the Federal Confidentiality of Alcohol and Drug Abuse Patient Records regulations: The Federal rules restrict any use of the information to criminally investigate or prosecute any alcohol or drug abuse patient.[facility] HospitalIn the event this information is protected by the Federal Confidentiality of Alcohol and Drug Abuse Patient Records regulations: The Federal rules restrict any use of the information to criminally investigate or prosecute any alcohol or drug abuse patient.[facility] HospitalIn the event this information is protected by the Federal Confidentiality of Alcohol and Drug Abuse Patient Records regulations: The Federal rules restrict any use of the information to criminally investigate or prosecute any alcohol or drug abuse patient.[facility] HospitalIn the event this information is protected by the Federal Confidentiality of Alcohol and Drug Abuse Patient Records regulations: The Federal rules restrict any use of the information to criminally investigate or prosecute any alcohol or drug abuse patient.[facility] Reason for Visit (unrecogniz ed section and content) Reason Comments Breast Cancer Specialty Diagnoses / Procedures Referred By Contac t Referred To Contact Diagnoses Malignant neoplasm of overlapping sites of right breast in female, estrogen receptor positive (HCC) Procedures CONSULT TO MEDICAL GENETICS - CANCER MEDICAL GENETICS COUNSELING EACH 30 MINUTES Jacqueline Altamirano PA-C [address] [place] [id number] [facility] [place] [address] [place] [address] Referral ID Status Reason Start Date Expiration Date V isits Requested Visits Authorized [id number] Closed PCP Requested Referral Auto-Generated Referral 10/20/2022 10/20/2023 1 1 Reason Comments Patient Update Reason Comments Consult Reason Comments Radiology MRI Specialty Diagnoses / Procedures [facility] To Contact MR IMAGING Diagnoses Malignant neoplasm of right breast in female, estrogen receptor positive, unspecified site of breast (HCC) Procedures MRI BREAST WO/W IVCON BILATERAL MRI BREAST WITHOUT&WITH CONTRAST W/CAD BILATERAL Messi Manley MD [address] [place] [address] Mr Imaging Referral ID Status Reason Start Date Expiration Date V isits Requested Visits Authorized [id number] Closed Auto-Generate d Referral 10/11/2022 11/25/2022 1 1 Reason Comments Consult Reason Comments Pre-Op Teaching Specialty Diagnoses / Procedures [facility] Referred To Contact MR IMAGING Diagnoses Abnormal MRI, breast Procedures MRI BREAST BX WO/W IVCON LEFT BX BREAST W/DEVICE 1ST LESION MAGNETIC RES GUID Milagros Su MD [address] [place] [address] Mr Imaging Referral ID Status Reason Start Date Expiration Date V isits Requested Visits Authorized [id number] Closed Patient Cleared - Admin/Chairm an/Director advise to proceed or did not respond 10/19/2022 04/30/2023 1 1 Reason Comments Results Reason Comments PHOTOS TAKEN Reason Comments FMLA - Dr. Reno Reason Comments FMLA (Spouse) - Dr. Reno Reason Comments Returning Patient's Call Reason Comments Established Patient Reason Comments Ingot Caster - Other Oncotype Specialty Diagnoses / Procedures [facility] Ref[facility] To Contact CT IMAGING Diagnoses Malignant 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 in female, estrogen receptor positive (HCC) Procedures CT CHEST W IVCON DIAGNOSTIC COMPUTED TOMOGRAPHY [place]ORAX W/[place] [address] [place] [address] [facility] [place] [address] Referral ID Status Reason Start Date Expiration Date V isits Requested Visits Authorized [id number] Closed Auto-Generate d Referral 12/09/2022 01/01/2024 2 2 Reason Comments Ingot Caster - Other Has oncotype re sults been received Reason Comments Established Patient Follow-Up Reason Comments Radiology NM Specialty Diagnoses / Procedures Referred By [facility] Referred To Contact MOLECULAR & FUNCTIONAL IMAGING Diagnoses Malignant 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 in female, estrogen receptor positive (HCC) Procedures NM BONE WHOLE BODY BONE &/[place] [address] [place] [address] Molecular & Functional Imaging [address] [place] [address] Referral ID Status Reason Start Date Expiration Date V isits Requested Visits Authorized [id number] Closed Auto-Generate d Referral 12/09/2022 01/01/2024 2 2 Reason Comments Letter Return to work Reason Comments Ingot Caster - Other Need to know wh ich block for patient has enough tissue to send for Oncotype Reason Comments Established Patient Breast Cancer Reason Onset Date Comments Simulation Request Form 01/06/2023 Reason Comments Patient Education Reason Comments Care Coordination FMLA Forms for [employer] ter Reason Comments Radiotherapy On-treatment Visit Reason Comments Oral Anti-cancer Agent Education Abemaci clib (Verzenio) Reason Onset Date Comments SPP Oral Oncology/hematology - Treatment Referra l 02/13/2023 Verzenio 150mg Insurance Authorization 02/13/2023 JUAN cuevas Reason Comments Care Coordination Post Treatment Call Reason Comments F/U 3 Month Reason Comments Ingot Caster - Other Specialty Diagnoses / Procedures Referred By Contjerica t Referred To Contact Diagnoses Invasive lobular carcinoma of breast in female (HCC) History of aromatase inhibitor therapy Procedures INJECTION, ZOLEDRONIC [place]ID, [address] [place] [address] [place] [address] [place] [address] [address] [place] [id number] Referral ID Status Reason Start Date Expiration Date V isits Requested Visits Authorized [id number] Authorized 02/13/2023 04/30/2023 99 99 Reason Comments Established Patient Care Teams (unrecognized sec tion and content) Customer Support Associate Relationship Specialty Start Date End Date Nimisha Retana [address] [facility] [place] [address] [place] [address] PCP - General Family Medicine 10/28/22 Customer Support Associate Relationship Specialty Start Date End Date Nimisha Retana [address] [facility] [place] [address] [place] [address] PCP - General Family Medicine 10/28/22 Customer Support Associate Relationship Specialty Start Date End Date Nimisha Retana [address] [facility] [place] [address] [place] [address] PCP - General Family Medicine 10/28/22 Customer Support Associate Relationship Specialty Start Date End Date Nimisha Retana [address] [facility] [place] [address] [place] [address] PCP - General Family Medicine 10/28/22 Customer Support Associate Relationship Specialty Start Date End Date Nimisha Retanafroylanreymundo [address] [facility] [place] [address] [place] [address] PCP - General Family Medicine 10/28/22 Customer Support Associate Relationship Specialty Start Date End Date Nimisha Retanaraul [address] [facility] [place] [address] [place] [address] PCP - General Family Medicine 10/28/22 Customer Support Associate Relationship Specialty Start Date End Date [place], Nimisha Jarrell [address] [place] [address] [place] [address] PCP - General Family Medicine 10/28/22 Customer Support Associate Relationship Specialty Start Date End Date MazinNimisha [address] [place] [address] [place] [address] PCP - General Family Medicine 10/28/22 Customer Support Associate Relationship Specialty Start Date End Date Mazin Nimisha Jarrell [address] [place] [address] [place] [address] PCP - General Family Medicine 10/28/22 Customer Support Associate Relationship Specialty Start Date End Date BayamonNimisha [address] [place] [address] [place] [address] PCP - General Family Medicine 10/28/22 Customer Support Associate Relationship Specialty Start Date End Date MazinNimisha [address] [place] [address] [place] [address] PCP - General Family Medicine 10/28/22 Customer Support Associate Relationship Specialty Start Date End Date Nimisha Retana [address] [place] [address] [place] [address] PCP - General Family Medicine 10/28/22 Customer Support Associate Relationship Specialty Start Date End Date Nimisha Retana MD [address] [place] [address] [place] [address] PCP - General Family Medicine 10/28/22 Customer Support Associate Relationship Specialty Start Date End Date Nimisha Retana MD [address] [place] [address] [place] [address] PCP - General Family Medicine 10/28/22 Customer Support Associate Relationship Specialty Start Date End Date Nimisha Retana MD [address] [facility] [place] [address] [place] [address] PCP - General Family Medicine 10/28/22 Customer Support Associate Relationship Specialty Start Date End Date Nimisha Retana MD [address] [facility] [place] [address] [place] [address] PCP - General Family Medicine 10/28/22 Customer Support Associate Relationship Specialty Start Date End Date Nimisha Retana MD [address] [facility] [place] [address] [place] [address] PCP - General Family Medicine 10/28/22 Customer Support Associate Relationship Specialty Start Date End Date Nimisha Retana MD [address] [facility] [place] [address] [place] [address] PCP - General Family Medicine 10/28/22 Customer Support Associate Relationship Specialty Start Date End Date Nimisha Retana MD [address] [facility] [place] [address] [place] [address] PCP - General Family Medicine 10/28/22 [place] [address] [place] [address] Specialty Ingot Caster Radiation Oncology 01/05/23 Customer Support Associate Relationship Specialty Start Date End Date Nimisha Retana MD [address] [facility] [place] [address] [place] [address] PCP - General Family Medicine 10/28/22 [place] [address] [place] [address] Specialty Ingot Caster Radiation Oncology 01/05/23 Customer Support Associate Relationship Specialty Start Date End Date Nimisha Retana MD [address] [facility] [place] [address] [place] [address] PCP - General Family [facility] 10/28/22 [place] [address] [place] [address] Specialty Ingot Caster Radiation Oncology 01/05/23 Customer Support Associate Relationship Specialty Start Date End Date Nimisha Retana MD [address] [facility] [place] [address] [place] [address] PCP - General Family Medicine 10/28/22 [place] [address] [place] [address] Specialty Ingot Caster Radiation Oncology 01/05/[address] 01/16/23 Customer Support Associate Relationship Specialty Start Date End Date Nimisha Retana MD [address] [facility] [place] [address] [place] [address] PCP - General Family Medicine 10/28/22 [place] [address] [place] [address] Specialty Ingot Caster Radiation Oncology 01/05/[address] 01/16/23 Customer Support Associate Relationship Specialty Start Date End Date Nimisha Retana MD [address] [facility] [place] [address] [place] [address] PCP - General Family Medicine 10/28/22 [place] [address] [place] [address] Specialty Ingot Caster Radiation Oncology 01/05/23 Tere Loyola, KEYLA Court Messenger 01/16/23 Customer Support Associate Relationship Specialty Start Date End Date Nimisha Retana MD [address] [place] [address] [place] [address] PCP - General Family Medicine 10/28/22 [place] [address] [place] [address] Specialty Ingot Caster Radiation Oncology 01/05/23 Tere Loyola, KEYLA Court Messenger 01/16/23 Customer Support Associate Relationship Specialty Start Date End Date Nimisha Retana MD [address] [place] [address] [place] [address] PCP - General Family Medicine 10/28/22 [place] [address] [place] [address] Specialty Ingot Caster Radiation Oncology 01/05/23 Tere Loyola, KEYLA Court Messenger 01/16/23 Customer Support Associate Relationship Specialty Start Date End Date Nimisha Retana MD [address] [facility] [place] [address] [place] [address] PCP - General Family Medicine 10/28/22 [place] [address] [place] [address] Specialty Ingot Caster Radiation Oncology 01/05/[address] 01/16/23 Customer Support Associate Relationship Specialty Start Date End Date Nimisha Retana MD [address] [facility] [place] [address] [place] [address] PCP - General Family Medicine 10/28/22 [place] [address] [place] [address] Specialty Ingot Caster Radiation Oncology 01/05/23 Tere Loyola, KEYLA Court Messenger 01/16/23 Customer Support Associate Relationship Specialty Start Date End Date Nimisha Retana MD [address] [place] [address] [place] [address] PCP - General Family Medicine 10/28/22 [place] [address] [place] [address] Specialty Ingot Caster Radiation Oncology 01/05/23 Tere Loyola, TECHNICAL BUYER [address] Messenger 01/16/23 Customer Support Associate Relationship Specialty Start Date End Date Nimisha Retana MD [address] [place] [address] [place] [address] PCP - General Family Medicine 10/28/22 [place] [address] [place] [address] Specialty Ingot Caster Radiation Oncology 01/05/23 Tere Loyola, KEYLA Court [address] 01/16/23 Customer Support Associate Relationship Specialty Start Date End Date Nimisha Retana MD [address] [facility] [place] [address] [place] [address] PCP - General Family Medicine 10/28/22 [place] [address] [place] [address] Specialty Ingot Caster Radiation Oncology 01/05/23 Tere Loyola, KEYLA Court Messenger 01/16/23 Customer Support Associate Relationship Specialty Start Date End Date Nimisha Retana MD [address] [address] [place] [address] PCP - General Family Medicine 10/28/22 [place] [id number] [place] [address] Specialty Ingot Caster Radiation Oncology 01/05/23 Tere Loyola, KEYLA Court Messenger 01/16/23 Customer Support Associate Relationship Specialty Start Date End Date Nimisha Retana MD [address] [facility] [place] [address] [place] [address] PCP - General Family Medicine 10/28/22 [place] [address] [place] [address] Specialty Ingot Caster Radiation Oncology 01/05/[address] Messenger 01/16/23 Customer Support Associate Relationship Specialty Start Date End Date Nimisha Retana MD [address] [facility] [place] [address] [place] [address] PCP - General Family Medicine 10/28/22 [place] [address] [place] [address] Specialty Ingot Caster Radiation Oncology 01/05/[address] Messenger 01/16/23 Customer Support Associate Relationship Specialty Start Date End Date Nimisha Retana MD [address] [facility] [place] [address] [place] [address] PCP - General Family Medicine 10/28/22 [place] [address] [place] [address] Specialty Ingot Caster Radiation Oncology 01/05/23 Tere Loyola LISW [address] [place] [address] Court Messenger 01/16/23 Customer Support Associate Relationship Specialty Start Date End Date Nimisha Retana MD [address] [facility] [place] [address] [place] [address] PCP - General Family Medicine 10/28/22 [place] [address] [place] [address] Specialty Ingot Caster Radiation Oncology 01/05/23 Tere Loyola LISW [address] [place] [address] Court Messenger 01/16/23 Customer Support Associate Relationship Specialty Start Date End Date Nimisha Retana MD [address] [facility] [place] [address] [place] [address] PCP - General Family Medicine 10/28/22 Angie Turpin, BLANKA [address] [place] [address] Specialty Ingot Caster Radiation Oncology 01/05/23 Tere Loyola LISW [address] [place] [address] Court Messenger 01/16/23 Customer Support Associate Relationship Specialty Start Date End Date Nimisha Retana MD [address] [facility] [address] [place] [address] PCP - General Family Medicine 10/10/22 Laurie Reyes PA [address] [facility] [address] [place] [address] PCP - [facility] 09/29/22 FOR RECORDS PERTAINING TO PATIENTS WHO ARE OR HAVE BEEN ENROLLED IN A CHEMICAL DEPENDENCY/SUBSTANCEABUSE PROGRAM, SOME INFORMATION MAY BE OMITTED. This clinical summary was aggregated from multiple sources. Caution should be exercised in using it in the provision of clinical care. This summary normalizes information from multiple sources, and as a consequence, information in this document may materially change the coding, format and clinical context of patient data. In addition, data may be omitted in some cases. CLINICAL DECISIONS SHOULD BE BASED ON THE PRIMARY CLINICAL RECORDS. [employer] [facility]. provides no warranty or guarantee of the accuracy or completeness of information in this document.
== END 2023-06-23 14:15 | disposition home or self-care (01) ==
LOC: RAD 14:14
PROVIDERS: PCP Family Medicine; Visit Provider Family Medicine
DX: E28.39 Other primary ovarian failure (principal)
CPT/HCPCS: 77080